=== PATIENT | female | born 1950 | race Caucasian/White ===

== ENCOUNTER 2023-08-11 14:47 | Outpatient (RCR) | payer MEDICARE, OTHER, SELFPAY | END 2023-08-12 07:39 | disposition home or self-care (01) | LOC: RPT 14:47 | PROVIDERS: ATTENDING PHYSICIAN Nurse Practitioner Adult Health; PRIMARYCARE PHYSICIAN Family Medicine | DX: R26.89 Other abnormalities of gait and mobility (principal); Z73.6 Limitation of activities due to disability | CPT/HCPCS: 97110; 97112 ==

== ENCOUNTER 2023-10-18 12:52 | Outpatient (RCR) | payer MEDICARE, OTHER, SELFPAY ==
[2023-10-18] MEDS: PROLIA 60 MG SC (13:26)
[2023-10-18 14:02] VITALS: BP 142/82
== END 2023-10-19 09:37 | disposition home or self-care (01) ==
LOC: OID 12:52
PROVIDERS: ATTENDING PHYSICIAN Family Medicine; FAMILY PHYSICIAN Family Medicine
DX: M81.0 Age-related osteoporosis without current pathological fracture (principal); M47.816 Spondylosis without myelopathy or radiculopathy, lumbar region; M41.86 Other forms of scoliosis, lumbar region
CPT/HCPCS: 96372; J0897

== ENCOUNTER → 2023-12-06 16:21 | Outpatient (REF) | payer MEDICARE, OTHER, SELFPAY | LOC: RAD 16:21 | PROVIDERS: ATTENDING PHYSICIAN Family Medicine | DX: S79.912A Unspecified injury of left hip, initial encounter (principal) | CPT/HCPCS: 73502 ==

== ENCOUNTER → 2023-12-15 13:00 | Outpatient (REF) | payer MEDICARE, OTHER, SELFPAY | LOC: PAVMRI 13:00 | PROVIDERS: ATTENDING PHYSICIAN Orthopaedic Surgery; FAMILY PHYSICIAN Family Medicine | DX: M54.16 Radiculopathy, lumbar region (principal) | CPT/HCPCS: 72148 ==

== ENCOUNTER → 2023-12-21 14:13 | Outpatient (REF) | payer MEDICARE, OTHER, SELFPAY | LOC: RCS 14:13 | PROVIDERS: ATTENDING PHYSICIAN Physical Medicine & Rehabilitation; FAMILY PHYSICIAN Family Medicine | DX: Z01.818 Encounter for other preprocedural examination (principal) | CPT/HCPCS: 93005 ==

== ENCOUNTER 2023-12-28 16:17 | Outpatient (RCR) | payer MEDICARE, OTHER, SELFPAY | END 2024-01-06 13:51 | disposition home or self-care (01) | LOC: RPT 16:17 | PROVIDERS: ATTENDING PHYSICIAN Orthopaedic Surgery; FAMILY PHYSICIAN Family Medicine | DX: M54.16 Radiculopathy, lumbar region (principal); M25.571 Pain in right ankle and joints of right foot; R26.2 Difficulty in walking, not elsewhere classified; Z73.6 Limitation of activities due to disability | CPT/HCPCS: 97010; 97110; 97140; 97163; 97530 ==

== ENCOUNTER 2023-12-29 20:46 | Observation (INO) | payer MEDICARE, OTHER, SELFPAY ==
[2023-12-29] VITALS (9 sets, daily range): BP systolic 124–164; BP diastolic 59–103; BMI 27.1
[2023-12-29] MEDS: MORPHINE SULFATE 1 MG IV ×2 (15:00→19:39)
--- NOTE | 2023-12-29 15:00 | ED.GENMED ---
History of Present Illness
<Rach Baldwin PA-C - Last Filed: 12/29/23 19:56>
General
Chief Complaint: Generalized Pain
Source: patient
Exam Limitations: none
Time Seen by Provider: 12/29/23 14:22
Nursing documentation reviewed up to this point in time: agreed with
Travel History
Have you had any contact with someone who has COVID-19?: No
Do you have any symptoms of coronavirus? Fever > 100 degrees, chills, cough, shortness of breath, sore throat, loss of taste or smell, muscle aches, or headache?: No
History of Present Illness
History of Present Illness:
73-year-old female with a past medical history of chronic left hip pain and back pain, dementia, Parkinson's, epilepsy, hypertension, hyperlipidemia presenting emergency department with acute on chronic left back and hip pain in addition to pain in
her groin. 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 Sister reports that patient was scheduled to have a epidural procedure today for her chronic pain, however the past 2 days her pain became so severe so suddenly and
rapidly that they presented to emergency department today. Sister reports that patient can no longer walk due to her get pain. They have tried Tylenol, IcyHot patches, heat pads, ice the past 2 days and nothing has helped relieve her pain.
Patient follows with Dr. Vazquez for her orthopedic care. Patient not take any blood thinner, denies new trauma recently. Patient denies any nausea or vomiting. Patient denies any dysuria. Patient denies blood in her urine.
Past History
<Rach Baldwin PA-C - Last Filed: 12/29/23 19:56>
Past History
ED Past Medical History: CVA (right frontal), HTN, Psychiatric (anxiety/depression) and Other (Epilepsy with status epilepticus, intellectual impairment with progression)
Social History
Tobacco: Non-smoker
Alcohol: None
Drug: None
Living: with family
Family History
Family History: Other (Epilepsy in brother)
Review of Systems
<Rach Baldwin PA-C - Last Filed: 12/29/23 19:56>
Review of Systems
All Other Systems: ROS reviewed and negative except as documented in HPI and ROS
Phy Exam
<Rach Baldwin PA-C - Last Filed: 12/29/23 19:56>
Physical Exam
Physical Exam:
General: Patient is moaning in pain, appears uncomfortable, however she is nontoxic-appearing
Skin: Warm and dry, no rashes or lesions. No areas of ecchymosis in the bilateral lower extremities.
Head: Normocephalic, atraumatic
Eyes: Sclera non-icteric. EOMs intact. PERRLA.
Cardiac: Regular rate and rhythm, no murmurs
Peripheral Vascular: No lower extremity swelling or edema, 2+ dorsalis pedis pulse bilateral
Pulm: Normal respiratory effort
Abdomen: No palpable abdominal masses. Normoactive bowel sounds. Abdominal distention noted. Mild tenderness palpation in the left pelvic region.
Musculoskeletal: No pain with internal/external rotation of left hip, no pain with hip abduction or abduction. No visible bony deformities of the bilateral lower extremities.
Neuro: Resting tremor noted. CN II-XII intact, no focal neurologic deficits.
Psychiatric: Appropriate mood and affect.
Course
<Rach Baldwin PA-C - Last Filed: 12/29/23 19:56>
Orders/Labs/Results
Orders:
Orders
12/29/23 14:49
Morphine Sulfate 1 mg IV NOW STA
12/29/23 14:55
CT Abd/pelvis W Iv Cont Urgent
Comment:
Reason For Exam: left sided pelvic pain, back pain
12/29/23 15:06
Complete Blood Count/With Diff Urgent
Comprehensive Metabolic Panel Urgent
12/29/23 15:21
Urinalysis Reflex To Culture Urgent
Date Specimen was Collected: 12/29/23
Time Specimen was Collected: 15:20
Urine Microscopic Reflex Cult Urgent
Urine Culture Urgent
CARITO Source: U
Specimen Description:
Date Specimen was Collected: 12/29/23
Time Specimen was Collected: 15:20
12/29/23 15:27
CT Lower Ext W/iv Cont Lt Urgent
Comment:
Reason For Exam: left hip pain
12/29/23 18:08
Morphine Sulfate 1 mg IV NOW STA
12/29/23 19:18
Morphine Sulfate 1 mg IV NOW STA
Abnormal Lab Results
12/29/23 12/29/23
15:06 15:21
RBC 4.12 L 10^6/uL
(4.20-5.40)
MCH 31.3 H pg
(27.0-31.0)
Absolute Monos (auto) 0.9 H 10^3/uL
(0.1-0.6)
Monocytes % 11.0 H %
(1.7-9.3)
Chloride 110 H mmol/L
(98-107)
BUN 21 H mg/dl
(7-17)
Creatinine 1.2 H mg/dL
(0.6-1.0)
Glucose 104 H mg/dl
(70-99)
Ur Occult Blood Reflex Trace A
(Negative)
Urine Bacteria (Reflex) Moderate A
(Negative)
Urine Albumin (Reflex) 3+ A
(Neg - Trace)
12/29/23 15:06
12/29/23 15:06
Vital Signs
Initial and Last Documented VS:
Initial Vital Signs
Temp Pulse Resp BP Pulse Ox
98.2 F 94 16 133/82 94
12/29/23 11:14 12/29/23 11:14 12/29/23 11:14 12/29/23 11:14 12/29/23 11:14
Last Documented Vital Signs
Temp Pulse Resp BP Pulse Ox
98.2 F 61 18 158/85 92
12/29/23 11:14 12/29/23 15:55 12/29/23 15:55 12/29/23 19:31 12/29/23 19:31
<Garry Ruby MD - Last Filed: 12/29/23 18:28>
Orders/Labs/Results
Orders:
Orders
12/29/23 14:49
Morphine Sulfate 1 mg IV NOW STA
12/29/23 14:55
CT Abd/pelvis W Iv Cont Urgent
Comment:
Reason For Exam: left sided pelvic pain, back pain
12/29/23 15:06
Complete Blood Count/With Diff Urgent
Comprehensive Metabolic Panel Urgent
12/29/23 15:21
Urinalysis Reflex To Culture Urgent
Date Specimen was Collected: 12/29/23
Time Specimen was Collected: 15:20
Urine Microscopic Reflex Cult Urgent
Urine Culture Urgent
CARITO Source: U
Specimen Description:
Date Specimen was Collected: 12/29/23
Time Specimen was Collected: 15:20
12/29/23 15:27
CT Lower Ext W/iv Cont Lt Urgent
Comment:
Reason For Exam: left hip pain
12/29/23 18:08
Morphine Sulfate 1 mg IV NOW STA
12/29/23 19:18
Morphine Sulfate 1 mg IV NOW STA
Abnormal Lab Results
12/29/23 12/29/23
15:06 15:21
RBC 4.12 L 10^6/uL
(4.20-5.40)
MCH 31.3 H pg
(27.0-31.0)
Absolute Monos (auto) 0.9 H 10^3/uL
(0.1-0.6)
Monocytes % 11.0 H %
(1.7-9.3)
Chloride 110 H mmol/L
(98-107)
BUN 21 H mg/dl
(7-17)
Creatinine 1.2 H mg/dL
(0.6-1.0)
Glucose 104 H mg/dl
(70-99)
Ur Occult Blood Reflex Trace A
(Negative)
Urine Bacteria (Reflex) Moderate A
(Negative)
Urine Albumin (Reflex) 3+ A
(Neg - Trace)
12/29/23 15:06
12/29/23 15:06
Vital Signs
Initial and Last Documented VS:
Initial Vital Signs
Temp Pulse Resp BP Pulse Ox
98.2 F 94 16 133/82 94
12/29/23 11:14 12/29/23 11:14 12/29/23 11:14 12/29/23 11:14 12/29/23 11:14
Last Documented Vital Signs
Temp Pulse Resp BP Pulse Ox
98.2 F 61 18 158/85 92
12/29/23 11:14 12/29/23 15:55 12/29/23 15:55 12/29/23 19:31 12/29/23 19:31
<Rach Baldwin PA-C - Last Filed: 12/29/23 19:56>
MDM/Problems Addressed
Differential Diagnosis Includes:
ddx include degenerative disc disease, compression fracture,diverticulitis,pyelonephritis, nephrolithiasis lumbar radiculopathy,
MDM/Problems Addressed:
flank pain, groin pain, back pain
Chronic conditions affecting care:
Parkinson's, dementia, hypertension, osteoporosis
Acute Exacerbation and/or Progression of Chronic Illness:
osteoporosis, dementia
<Rach Baldwin PA-C - Last Filed: 12/29/23 19:56>
*Pulse Oximetry
Patient hypoxic: no
*Critical Care Note
Total Time (30-74mins, 75-104mins- exclusive of procedures): Not Applicable
Data Reviewed
Review of Other/Old Records Reveals: Records and Radiology Studies (reviewed most previous MRI study of the lumbar spine)
<Rach Baldwin PA-C - Last Filed: 12/29/23 19:56>
Patient Management
Social determinants of health affecting care: Strong social support
Escalation/DeEscalation of care consider admission/obs:
73-year-old female with a past medical history of chronic left hip pain and back pain, dementia, Parkinson's, epilepsy, hypertension, hyperlipidemia presenting emergency department with acute on chronic left back and hip pain in addition to pain in
her groin. While she does have chronic pain, her sudden onset of severe pain with no history of trauma prompted us to order a CT scan of the abdomen pelvis as well as left lower extremity which was negative for any acute intra-abdominal pathology,
no acute fracture or dislocation but does demonstrate chronic degenerative changes. I personally tried to ambulate with patient, she cannot ambulate without pain and significant assistance, patient also has balance issues related to Parkinson's.
Admission indicated. Sister is unable to manage ongoing pain at home, we discussed possible placement to rehab facility. Patient will stay overnight for pain control and further evaluation with okay to have PT eval in the morning.
ED Attending Note
<Rach Baldwin PA-C - Last Filed: 12/29/23 19:56>
-
Portions of this chart may have been created with voice recognition software.� Occasional wrong word or��sound alike� substitutions may have occurred due to the inherent limitations of voice recognition software.
<Garry Ruby MD - Last Filed: 12/29/23 18:28>
ED Attending Note
Patient seen and examined by attending physician: Yes
I performed the substantive portion of visit, reviewed & personally made and approve the management plan that is documented in note by myself or MARTINA.: Yes
ED Attending Note:
73-year-old female with increasing left lower quadrant and left hip and flank pain progressive over days. Increased pain with ambulation. No fever or chills. No change in bowels. No urinary symptoms. Patient had a lumbar MRI done 518 with
degenerative changes and spinal stenosis. No bowel or bladder issues. No lower extremity weakness. Major symptom is pain.
On exam patient is nontoxic in no distress. Mild dementia. Lungs are clear and equal. Heart regular rate and rhythm. Abdomen mildly distended but soft and minimal left lower quadrant tenderness. No rebound or guarding no mass or hernia. Left
leg with no shortening. Negative straight leg raising. No pain with hip rotation. Mild tenderness over the greater trochanter. No spinal tenderness.
Workup in progress including workup for abdominal etiology. Doubt true hip issue.
Discharge Plan
Departure
Patient Disposition: Admit
Date of Disposition: 12/29/23
Time of Disposition: 19:31
Admit to: Med/Surg
Presentation/result/management discussed w/ accepting MD/DO: Hospitalist
Condition: Fair
Discharge Problem:
Ambulatory dysfunction
Prescriptions:
No Action
pantoprazole 40 MG tablet,delayed release (DR/EC)
40 mg PO DAILY
escitalopram oxalate 10 MG tablet
10 mg PO HS
atorvastatin 40 MG tablet
40 mg PO HS
acetaminophen 325 MG tablet
650 mg PO Q4HPRN PRN (Reason: HUNT, mild pain, or temp >100.4F) 0RF
levetiracetam 500 MG/5 ML solution
1,000 mg PO BID Qty: 120 0RF
clopidogrel [Plavix] 75 mg Tablet
75 mg PO HS
amlodipine 5 mg Tablet
5 mg PO DAILY
cholecalciferol (vitamin D3) [Vitamin D3] 125 mcg (5,000 unit) Tablet
125 mcg PO DAILY
propranolol 20 mg Tablet
20 mg PO BID
Vitamin B-12 25 mcg Tablet
25 mcg PO DAILY
Referrals:
Dean Landa MD [Family Provider] -
Interventions
Interventions:
*Risk Screen - Suicide Last Done: 12/29/23 11:14
*General Assessment Last Done: 12/29/23 13:22
*Neglect/Abuse Screening Last Done: 12/29/23 11:14
ED- Fall Risk Assessment Last Done: 12/29/23 11:14
*ED COVID-19 Vaccine History Last Done: 12/29/23 13:22
Discharge Date and Time
Print Language: FINNISH
[2023-12-29 15:23] LABS: % Eosinophils 1.1 % (0-6); % Immature Granulocytes 0.4 % (0-0.5); % Lymphocytes 25.3 % (20.5-51.1); % Neutrophils 61.2 % (42.2-75.2); Absolute Basophils 0.1 10^3/uL (0-0.2); Absolute Eosinophils 0.1 10^3/uL (0-0.7); Absolute Lymphocytes 2.1 10^3/uL (1.2-3.4); Absolute Monocytes 0.9 10^3/uL (0.1-0.6); Absolute Neutrophils 5.1 10^3/uL (1.4-6.5); Hematocrit 37.2 % (37.0-47.0); Hemoglobin 12.9 g/dL (12.0-16.0); Mean Corp Hgb Conc. 34.7 g/dL (33.0-37.0); Mean Corpuscular Hgb 31.3 pg (27.0-31.0); Mean Corpuscular Volume 90.3 fL (81.0-99.0); Mean Platelet Volume 10.1 fL (7.4-10.4); Nucleated Red Blood Cells % 0 %; Platelet Count 271 10^3/uL (130-400); Red Blood Cell Count 4.12 10^6/uL (4.20-5.40); Red Cell Dist. Width 12.8 % (11.5-14.5); White Blood Cell Count 8.3 10^3/uL (4.8-10.8)
[2023-12-29 15:29] LABS: ALT (SGPT) 20 U/L (0-35); AST (SGOT) 24 U/L (14-36); Albumin 3.9 g/dl (3.5-5.0); Alkaline Phosphatase 65 U/L (38-126); Blood Urea Nitrogen 21 mg/dl (7-17); Calcium 9.7 mg/dl (8.4-10.2); Carbon Dioxide 22 mmol/L (22-30); Chloride 110 mmol/L (98-107); Estimated Creatinine Clearance 40 ml/min; Glucose 104 mg/dl (70-99); Potassium 3.9 mmol/L (3.5-5.1); Sodium 141 mmol/L (135-145); Total Bilirubin 0.7 mg/dl (0.2-1.3); Total Protein 6.6 g/dl (6.3-8.2); eGFR 48.09
[2023-12-29 15:40] LABS: Urine Albumin 3+ (Neg - Trace); Urine Bilirubin Negative (Negative); Urine Character Clear (Clear); Urine Color Yellow; Urine Glucose Negative (Negative); Urine Ketone Negative (Negative); Urine Leukocyte Negative (Negative); Urine Nitrite Negative (Negative); Urine Occult Blood Trace (Negative); Urine Specific Gravity 1.015 (<1.030); Urine Urobilinogen Negative (Neg - 1+)
[2023-12-29 16:06] LABS: Urine Bacteria Moderate (Negative); Urine Red Blood Cell 0-2 /HPF (0-2)
--- NOTE | 2023-12-29 19:59 | HPS.HSE ---
Family Physician
-
Family Physician: Dean Landa
Chief Complaint
-
left hip pain
History of Present Illness
73-year-old female past medical history of Parkinson's, dementia, seizure disorder, CVA, spinal stenosis essential hypertension, osteoarthritis, chronic hip/back pain, GERD, osteoporosis, anxiety, presenting for acute on chronic left lower back and
hip pain in addition to radiating to her groin. Pain radiates down to slightly above her left knee. Denies numbness and tingling of the lower extremity. Patient arrives with sister who lives with her and is her new accounts banking representative. Sister states that
patient supposed have epidural injection today for chronic pain however for the past 2 days the pain was so severe that she came to the emergency room today. Patient cannot walk due to the pain. Patient has tried Tylenol, IcyHot patches, heat
pads, ice for the past 2 days without relief in pain.
Patient did have a fall 2 months ago and injuring her left hip with some bruising.
No urine incontinence, fevers or chills, weight loss.
Patient had a lumbar MRI 2 weeks ago and was found to have spinal stenosis. There is discussion about having laminectomy performed by orthopedics in the near future.
Patient follows Dr. Reynoso of orthopedics.
Medical History
Past Medical History
Past Medical History: Reports Other (Parkinson's, dementia, seizure disorder, CVA, spinal stenosis essential hypertension, osteoarthritis, chronic hip/back pain, GERD, osteoporosis, anxiety)
Past Surgical History: Reports None
Social History
Tobacco: Non-smoker
Alcohol: Occasional
Drug: None
Family History
Family History: Not pertinent
Allergies / Home Medications
Allergies reflects when Allergies were last updated in [facility].
Home Medications with original date entered in [facility]
Allergy/Medication List:
Allergies
Allergy/AdvReac Type Severity Reaction Status Date / Time
No Known Allergies Allergy Verified 12/29/23 11:14
Home Medications
pantoprazole 40 mg tablet,delayed release 40 mg PO DAILY Gastrointestinal issue 03/04/21
escitalopram oxalate 10 mg tablet 10 mg PO HS Depression 07/23/21
atorvastatin 40 mg tablet 40 mg PO HS High cholesterol 01/28/22
acetaminophen 325 mg tablet 650 mg (2 x 325 mg) PO Q4HPRN PRN HUNT, mild pain, or temp >100.4F 01/30/22
levetiracetam 500 mg/5 mL (5 mL) oral solution 1,000 mg (10 mL) PO BID #120 mL 01/30/22
clopidogrel 75 mg tablet (Plavix) 75 mg PO HS 03/10/22
amlodipine 5 mg tablet 5 mg PO DAILY 09/28/22
cholecalciferol (vitamin D3) 125 mcg (5,000 unit) tablet (Vitamin D3) 125 mcg PO DAILY 04/13/23
cyanocobalamin (vitamin B-12) 25 mcg tablet 25 mcg PO DAILY 10/18/23
propranolol 20 mg tablet 20 mg PO BID 10/18/23
Review of Systems
-
History Source: Patient
A 12 point ROS was completed and negative except as noted: Yes
Constitutional: Reports No Symptoms
EENT: Reports No Symptoms
Respiratory: Reports No Symptoms
Cardiac: Reports No Symptoms
Abdomen/GI: Reports No Symptoms
: Reports No Symptoms and See HPI
Musculoskeletal: Reports Other
Skin: Reports No Symptoms
Neurological: Reports No Symptoms
Endocrine: Reports No Symptoms
Hematologic/Lymphatic: Reports No Symptoms
Psych: Reports No Symptoms
Physical Exam
Vital Signs
Vital Signs
Temp Pulse Resp BP Pulse Ox
98.2 F 61 18 158/85 92
12/29/23 11:14 12/29/23 15:55 12/29/23 15:55 12/29/23 19:31 12/29/23 19:31
Physical Exam
General: Well Developed, Well Nourished and No Apparent Distress
HEENT: NormoCephalic, Moist mucous membranes and Atraumatic
Respiratory: Clear
Cardiac: S1/S2 and Regular Rhythm; No Murmur or Rub
GI: Soft, Non Tender, Non Distended and Normal Bowel Sounds; No Organomegaly
Rectal: Deferred by Provider
Musculoskeletal: No Clubbing, No Cyanosis, No Edema and Other (tender left lower back, hip )
Skin: No Rash
Neuro: Nonfocal/grossly intact
Laboratory Results
-
12/29/23 15:06
12/29/23 15:06
Laboratory Results
Total Bilirubin 0.7 mg/dl (0.2-1.3) 12/29/23 15:06
AST 24 U/L (14-36) 12/29/23 15:06
ALT 20 U/L (0-35) 12/29/23 15:06
Alkaline Phosphatase 65 U/L (38-126) 12/29/23 15:06
Data Reviewed
-
Lab Data: Labs Reviewed by me
Old Records: Reviewed
Impression/Plan
-
IMPRESSION:
PLAN:
# Acute on chronic left back/hip pain/groin pain secondary to L4-5 spinal stenosis
-CT abdomen pelvis shows no acute abnormality
-Recently had MRI lumbar spine showing L4-L5 spinal stenosis
-Left lower extremity CT shows no acute abnormality or hip fracture
-Tylenol, ibuprofen, Dilaudid for pain, lidocaine patch
-PT/OT
-Outpatient follow-up with orthopedics for steroid epidural injection
-Likely will require rehab
History of dementia
-Continue Lexapro
History of seizure disorder
-Continue Keppra
Parkinson's disease
History of CVA
-Continue Plavix, statin
Essential hypertension
-Continue amlodipine, propranolol
GERD
-Continue Protonix
DNR/DNI
DVT prophylaxis�heparin
Regular diet
--- NOTE | 2023-12-29 21:26 | PTCARENOTE ---
Pt received from ED to [id number]. Pt oriented to room and call shepard.
[2023-12-29] MEDS: LEXAPRO 10 MG PO (22:22)
[2023-12-29] MEDS: PLAVIX 75 MG PO (22:22)
[2023-12-29] MEDS: KEPPRA 1000 MG PO (22:22)
[2023-12-29] MEDS: HEPARIN 5000 UNITS SC (22:22)
[2023-12-29] MEDS: LIPITOR 40 MG PO (22:22)
[2023-12-30 05:37] LABS: % Basophils 0.9 % (0-2); % Eosinophils 1.9 % (0-6); % Immature Granulocytes 0.5 % (0-0.5); % Lymphocytes 19.4 % (20.5-51.1); % Monocytes 8.9 % (1.7-9.3); % Neutrophils 68.4 % (42.2-75.2); Absolute Basophils 0.1 10^3/uL (0-0.2); Absolute Eosinophils 0.1 10^3/uL (0-0.7); Absolute Lymphocytes 1.4 10^3/uL (1.2-3.4); Absolute Monocytes 0.7 10^3/uL (0.1-0.6); Absolute Neutrophils 5.1 10^3/uL (1.4-6.5); Hemoglobin 12.6 g/dL (12.0-16.0); Mean Corp Hgb Conc. 34.1 g/dL (33.0-37.0); Mean Corpuscular Hgb 30.7 pg (27.0-31.0); Mean Corpuscular Volume 90.2 fL (81.0-99.0); Mean Platelet Volume 10.1 fL (7.4-10.4); Nucleated Red Blood Cells % 0 %; Platelet Count 248 10^3/uL (130-400); Red Cell Dist. Width 12.6 % (11.5-14.5); White Blood Cell Count 7.4 10^3/uL (4.8-10.8)
[2023-12-30 05:56] LABS: ALT (SGPT) 17 U/L (0-35); AST (SGOT) 22 U/L (14-36); Albumin 3.6 g/dl (3.5-5.0); Alkaline Phosphatase 58 U/L (38-126); Blood Urea Nitrogen 22 mg/dl (7-17); Calcium 9.5 mg/dl (8.4-10.2); Carbon Dioxide 20 mmol/L (22-30); Chloride 112 mmol/L (98-107); Estimated Creatinine Clearance 40 ml/min; Glucose 111 mg/dl (70-99); Potassium 3.8 mmol/L (3.5-5.1); Sodium 140 mmol/L (135-145); Total Bilirubin 0.5 mg/dl (0.2-1.3); Total Protein 6.1 g/dl (6.3-8.2); eGFR 48.09
[2023-12-30 07:00] VITALS: BP 157/60
[2023-12-30 09:17] VITALS: BP 141/83; PULSE 92; O2SAT 92
--- NOTE | 2023-12-30 09:23 | W.PN.HOSP.TC ---
Today's Communication/Plan
-
Start Tylenol 1 g 3 times daily
Start prednisone 40 mg daily for 5 days
Start oxycodone 4 times daily, hold for sedation
Assessment / Plan
Assessment / Plan
HPI: 73-year-old female past medical history of Parkinson's, dementia, seizure disorder, CVA, spinal stenosis essential hypertension, osteoarthritis, chronic hip/back pain, GERD, osteoporosis, anxiety, presenting for acute on chronic left lower back
and hip pain in addition to radiating to her groin. Pain radiates down to slightly above her left knee. Denies numbness and tingling of the lower extremity. 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 Sister states that
patient supposed have epidural injection today for chronic pain however for the past 2 days the pain was so severe that she came to the emergency room today. Patient cannot walk due to the pain. Patient has tried Tylenol, IcyHot patches, heat
pads, ice for the past 2 days without relief in pain.
# Acute on chronic left back/hip pain/groin pain secondary to L4-5 spinal stenosis
-CT abdomen pelvis shows no acute abnormality
-Recently had MRI lumbar spine showing L4-L5 spinal stenosis
-Left lower extremity CT shows no acute abnormality or hip fracture
Start Tylenol 1 g 3 times daily
Start prednisone 40 mg daily for 5 days
Start oxycodone 4 times daily, hold for sedation
Sister declining rehab, wants patient to go home with home care
History of dementia
-Continue Lexapro
History of seizure disorder
-Continue Keppra
Parkinson's disease
History of CVA
-Continue Plavix, statin
Essential hypertension
-Continue amlodipine, propranolol
GERD
-Continue Protonix
DVT prophylaxis�subcu heparin
DNR
Updated sister on phone 12/29
Total time spent to see the patient on the floor, examine the patient, review data and lab results, discuss treatment plan with patient, nursing staff around 51 minutes.
Physical Exam
General: No acute distress
HEENT: Normocephalic, Atraumatic, EOMI, MMM
Respiratory: Clear to Auscultation bilaterally
Cardiac: Normal S1/S2, Regular Rate and Rhythm
GI: Soft, Nontender, Nondistended, Normal Bowel Sounds
Extremities: No Clubbing, Cyanosis, or Edema
Neuro: Nonfocal/Grossly Intact
Psych: Calm, Cooperative
Derm: No Visible lesions
Anticipated Discharge: Within 24 hours
Subjective/Interval History
-
Date of Service: December 30, 2023
Patient continues to have lower back and leg pain, 10 out of 10 in intensity. No chest pain, no shortness of breath.
Objective Data
-
Labs:
Laboratory Results
12/30/23
05:16
WBC 7.4
Hgb 12.6
Hct 37.0
Plt Count 248
Sodium 140
Potassium 3.8
Chloride 112 H
Carbon Dioxide 20 L
BUN 22 H
Creatinine 1.2 H
Glucose 111 H
Calcium 9.5
Total Bilirubin 0.5
AST 22
ALT 17
Alkaline Phosphatase 58
Vital Signs:
Vital Signs
Temp Pulse Resp BP Pulse Ox
98.0 F 68 18 157/60 96
12/30/23 07:00 12/30/23 07:00 12/30/23 07:00 12/30/23 07:00 12/30/23 07:00
[2023-12-30 09:25] VITALS: BP 141/83; PULSE 92; O2SAT 94
[2023-12-30] MEDS: TYLENOL 1000 MG PO ×2 (11:02→21:36)
[2023-12-30] MEDS: NORVASC 5 MG PO (11:04)
[2023-12-30] MEDS: MIRALAX 17 GRAMS PO (11:04)
[2023-12-30] MEDS: LIDOCAINE 4% PATCH 1 PATCH TOPICAL (11:04)
[2023-12-30] MEDS: HEPARIN SC ×2 (11:14→19:40)
[2023-12-30] MEDS: INDERAL 20 MG PO ×2 (11:14→19:38)
[2023-12-30] MEDS: THERAGRAN 1 TABLET PO (11:14)
[2023-12-30] MEDS: PROTONIX 40 MG PO (11:14)
[2023-12-30] MEDS: KEPPRA 1000 MG PO ×2 (11:15→19:38)
--- NOTE | 2023-12-30 11:34 | CM ---
Addendum entered by Brittany Zapata 12/30/23 14:22:
[facility] can offer a bed...
However, Patient and her sister decided on d/c to home with outpatient f/u for pain management.
Requested VN with [facility]. Referral to liaison.
Addendum entered by Birttany Zapata 12/30/23 14:00:
[facility] OON and no OON benefit. [facility] no beds.
Original Note:
Patient seen bedside with sister (her daughter is POA).
IA completed.
Patient lives with sister in 1 story home with 5 steps to enter.
Per sister patient is having difficulty with steps, ambulates with a RW.
Also has a cane and commode but does not use.
patient does not drive.
Patient has had VN in the past with [facility].
Patient has been in [facility] in the past.
PT/OT recommending skilled rehab.
Patients sister would like [facility], [facility] or [facility] in that order. Referrals placed.
PCP: Dr Landa
Pharmacy: [facility]
Plan: possible skilled rehab.
[2023-12-30] MEDS: ROXICODONE 5 MG PO ×3 (14:05→21:36)
[2023-12-30] MEDS: ROXICODONE PO (14:13)
[2023-12-30 15:00] VITALS: BP 128/78
[2023-12-30] MEDS: DELTASONE 40 MG PO (15:54)
[2023-12-30] MEDS: TYLENOL PO (17:00)
[2023-12-30 19:36] LABS: Hepatitis C Antibody Negative (Negative)
[2023-12-30] MEDS: PLAVIX 75 MG PO (19:40)
[2023-12-30] MEDS: LIPITOR 40 MG PO (19:40)
[2023-12-30] MEDS: LEXAPRO 10 MG PO (19:43)
[2023-12-30 23:00] VITALS: BP 151/94
[2023-12-31 07:00] VITALS: BP 147/80
[2023-12-31] MEDS: DELTASONE 40 MG PO (08:05)
[2023-12-31] MEDS: INDERAL 20 MG PO (08:06)
[2023-12-31] MEDS: LIDOCAINE 4% PATCH 1 PATCH TOPICAL (08:06)
[2023-12-31] MEDS: KEPPRA 1000 MG PO (08:06)
[2023-12-31] MEDS: THERAGRAN 1 TABLET PO (08:07)
[2023-12-31] MEDS: NORVASC 5 MG PO (08:07)
[2023-12-31] MEDS: ROXICODONE 5 MG PO (08:07)
[2023-12-31] MEDS: PROTONIX 40 MG PO (08:07)
[2023-12-31] MEDS: TYLENOL 1000 MG PO (08:07)
[2023-12-31] MEDS: MIRALAX 17 GRAMS PO (08:07)
[2023-12-31] MEDS: HEPARIN 5000 UNITS SC (08:19)
--- NOTE | 2023-12-31 08:37 | W.PN.HOSP.TC ---
Today's Communication/Plan
-
Discharge today
Assessment / Plan
Assessment / Plan
HPI: 73-year-old female past medical history of Parkinson's, dementia, seizure disorder, CVA, spinal stenosis essential hypertension, osteoarthritis, chronic hip/back pain, GERD, osteoporosis, anxiety, presenting for acute on chronic left lower back
and hip pain in addition to radiating to her groin. Pain radiates down to slightly above her left knee. Denies numbness and tingling of the lower extremity. Patient arrives with sister who lives with her and is her product engineer. Sister states that
patient supposed have epidural injection today for chronic pain however for the past 2 days the pain was so severe that she came to the emergency room today. Patient cannot walk due to the pain. Patient has tried Tylenol, IcyHot patches, heat
pads, ice for the past 2 days without relief in pain.
# Acute on chronic left back/hip pain/groin pain secondary to L4-5 spinal stenosis
-CT abdomen pelvis shows no acute abnormality
-Recently had MRI lumbar spine showing L4-L5 spinal stenosis
-Left lower extremity CT shows no acute abnormality or hip fracture
Started Tylenol 1 g 3 times daily, prednisone 40 mg daily for 7 days, oxycodone 4 times prn
While patient still has pain, she was able to tolerate more activity with physical therapy
Sister declining rehab, wants patient to go home with home care
Medically stable for discharge with home PT, sister has epidural spinal injection appointment for patient next Wednesday on 01/04
History of dementia
-Continue Lexapro
History of seizure disorder
-Continue Keppra
Parkinson's disease
History of CVA
-Continue Plavix, statin
Essential hypertension
-Continue amlodipine, propranolol
GERD
-Continue Protonix
DVT prophylaxis�subcu heparin
DNR
Updated sister on phone 12/30
Physical Exam
General: No acute distress
HEENT: Normocephalic, Atraumatic, EOMI, MMM
Respiratory: Clear to Auscultation bilaterally
Cardiac: Normal S1/S2, Regular Rate and Rhythm
GI: Soft, Nontender, Nondistended, Normal Bowel Sounds
Extremities: No Clubbing, Cyanosis, or Edema
Neuro: Pleasantly confused
Psych: Calm, Cooperative
Derm: No Visible lesions
Anticipated Discharge: Today
Subjective/Interval History
-
Date of Service: December 31, 2023
Patient reports her pain is unchanged. However she was able to tolerate more activity with physical therapy. No fever, no vomiting.
Objective Data
-
Vital Signs:
Vital Signs
Temp Pulse Resp BP Pulse Ox
97.7 F 79 16 147/80 95
12/31/23 07:00 12/31/23 07:00 12/31/23 07:00 12/31/23 07:00 12/31/23 07:00
I&O
12/30/23 12/31/23 01/01/24
06:59 06:59 06:59
Intake Total 360 / 360
Balance 360 / 360
--- NOTE | 2023-12-31 11:50 | CM ---
Patient seen bedside.
Plan: home with [facility] sister will transport.
[2023-12-31 12:20] VITALS: BP 136/73
--- NOTE | 2023-12-31 12:43 | VNURNOTE ---
Home Health Liaison met with patient and sister Allison at 1130 to discuss [facility] nurse/therapy, visits, schedule and homebound status. Allison is agreeable and understands that visits at home will be 2-3 x per week to assess and teach medical management.
Allison is aware that VN will contact her for start of care in 1-2 days after discharge from .
[facility] referral completed in [facility].
--- NOTE | 2023-12-31 16:38 | W.DCSUMMARY ---
Discharge Summary
Discharge Data
Date of Admission: 12/29/23
Date of Discharge: 12/31/23
-
Pending Results: No
Hospital Course
Discharge diagnosis:
Lumbar spine vertebrae 4�5 spinal stenosis
Acute on chronic left back/hip/groin pain
Ambulatory dysfunction
History of dementia
History of seizure disorder
Parkinson's disease
History of stroke
Essential hypertension
Gastroesophageal reflux disease
Hospital course:
73-year-old female with a past medical history of Parkinson's, dementia, seizure disorder, CVA, spinal stenosis, essential hypertension, osteoarthritis, chronic hip/back pain, GERD, osteoporosis, and anxiety who was placed in observation for
worsening acute on chronic left back/hip/groin pain from L4-L5 spinal stenosis. Patient has an appointment for epidural spinal injection next week.
Patient was treated with Tylenol 1 g 3 times daily, prednisone 40 mg daily, and oxycodone 5 mg 4 times daily as needed. While she still had pain, this regimen enabled her to participate with physical therapy more. Physical therapy initially
recommended short-term rehab. Patient's sister declined, wishing to take her home. Patient was seen by physical therapy again, prior to discharge. With the current medications, physical therapy notes the patient tolerated the physical therapy
session better today versus the previous session.
Patient is medically stable for discharge. Her sister has an epidural spinal injection appointment for her on 01/05/2024. She can continue the Tylenol 1 g 3 times a day, oxycodone 5 mg as needed, and prednisone 40 mg daily to complete a
7-day course.
Disposition: Home with home PT
Discharge planning: Required 37 minutes
Discharge Plan
-
Patient Disposition: Home with Home Care
Discharge Diagnosis/Procedures: Lower back pain, spinal stenosis, dementia
Diet: Regular
Activity: As tolerated
Activity Restrictions/Additional Instructions:
Please follow-up with your primary care doctor in 1 week, and keep the appointment for your epidural spinal injection.
Referrals:
Syeda,Dean L., MD [Family Provider] - in one week
Prescriptions:
New
lidocaine 4 % Adhesive Patch,Medicated
1 patch topical DAILY Qty: 30 0RF
prednisone 20 mg Tablet
40 mg PO DAILY 5 Days Qty: 10 0RF
acetaminophen [Tylenol Extra Strength] 500 mg Tablet
1,000 mg PO TID Qty: 120 0RF
oxycodone 5 mg Tablet
5 mg PO QID PRN (Reason: Pain) Qty: 30 0RF
polyethylene glycol 3350 17 gram/dose powder
17 g PO DAILY Qty: 510 0RF
Continued
pantoprazole 40 MG tablet,delayed release (DR/EC)
40 mg PO DAILY
escitalopram oxalate 10 MG tablet
10 mg PO HS
atorvastatin 40 MG tablet
40 mg PO HS
clopidogrel [Plavix] 75 mg Tablet
75 mg PO HS
amlodipine 5 mg Tablet
5 mg PO DAILY
propranolol 20 mg Tablet
20 mg PO BID
therapeutic multivitamin Tablet
1 tab PO DAILY
levetiracetam 100 mg/mL solution
1,000 mg PO Q12H
cholecalciferol (vitamin D3)
1 tab PO DAILY
cyanocobalamin (vitamin B-12)
1 tab PO DAILY
Discontinued
ibuprofen-acetaminophen [Dual Action Pain Reliever] 125-250 mg Tablet
2 tab PO BIDPRN PRN (Reason: mild pain)
Discharge Orders:
Discharge Patient (As Directed); Ordered 12/31/23
Ordered By: Marquise Jung
Discharge Date and Time
Discharge Date/Time: 12/31/23 13:35
Print Language: TANZANIAN
== END 2023-12-31 13:35 | disposition home health service (06) ==
LOC: 4 WEST ACU 20:46
PROVIDERS: Physician Assistant; ADMITTING PHYSICIAN Hospitalist; ATTENDING PHYSICIAN Family Medicine; EMERGENCY PHYSICIAN Emergency Medicine; FAMILY PHYSICIAN Family Medicine
DX: M54.50 Low back pain, unspecified (principal); G89.29 Other chronic pain; M54.9 Dorsalgia, unspecified; M48.061 Spinal stenosis, lumbar region without neurogenic claudication; M47.816 Spondylosis without myelopathy or radiculopathy, lumbar region; I10 Essential (primary) hypertension; E78.5 Hyperlipidemia, unspecified; M41.56 Other secondary scoliosis, lumbar region; M41.54 Other secondary scoliosis, thoracic region; M25.552 Pain in left hip; F02.A4 Dementia in other diseases classified elsewhere, mild, with anxiety; G40.909 Epilepsy, unspecified, not intractable, without status epilepticus; F02.A3 Dementia in other diseases classified elsewhere, mild, with mood disturbance; R10.2 Pelvic and perineal pain; G20.A1 Parkinson's disease without dyskinesia, without mention of fluctuations; N28.1 Cyst of kidney, acquired; M81.0 Age-related osteoporosis without current pathological fracture; R26.2 Difficulty in walking, not elsewhere classified; K21.9 Gastro-esophageal reflux disease without esophagitis; F32.A Depression, unspecified; K57.30 Diverticulosis of large intestine without perforation or abscess without bleeding; Z66 Do not resuscitate; Z79.02 Long term (current) use of antithrombotics/antiplatelets; Z86.73 Personal history of transient ischemic attack (TIA), and cerebral infarction without residual deficits
CPT/HCPCS: 73701; 74177; 80053; 81003; 81015; 85025; 86803; 87086; 96374; 96376; 97163; 97166; 97530; 99285; G0378; Q9967

== ENCOUNTER → 2024-01-06 14:26 | Outpatient (REF) | payer MEDICARE, OTHER, SELFPAY | LOC: RAD 14:26 | PROVIDERS: ATTENDING PHYSICIAN Family Medicine | DX: S09.93XA Unspecified injury of face, initial encounter (principal); W19.XXXA Unspecified fall, initial encounter | CPT/HCPCS: 70150 ==

== ENCOUNTER → 2024-03-03 16:44 | Outpatient (REF) | payer MEDICARE, OTHER, SELFPAY | LOC: PAVMRI 16:44 | PROVIDERS: ATTENDING PHYSICIAN Orthopaedic Surgery; FAMILY PHYSICIAN Family Medicine | DX: M79.18 Myalgia, other site (principal) | CPT/HCPCS: 72195 ==

== ENCOUNTER 2024-05-01 12:49 | Outpatient (RCR) | payer MEDICARE, OTHER, SELFPAY ==
[2024-05-01 13:11] VITALS: BP 133/65
[2024-05-01] MEDS: PROLIA 60 MG SC (13:35)
== END 2024-05-08 23:59 | disposition home or self-care (01) ==
LOC: OID 12:49
PROVIDERS: ATTENDING PHYSICIAN Family Medicine; FAMILY PHYSICIAN Family Medicine
DX: M81.0 Age-related osteoporosis without current pathological fracture (principal); M47.816 Spondylosis without myelopathy or radiculopathy, lumbar region; M41.86 Other forms of scoliosis, lumbar region
CPT/HCPCS: 96372; J0897

== ENCOUNTER 2024-05-05 11:06 | Outpatient (RCR) | payer MEDICARE, OTHER, SELFPAY | END 2024-05-05 23:59 | disposition home or self-care (01) | LOC: RPT 11:06 | PROVIDERS: ATTENDING PHYSICIAN Physical Medicine & Rehabilitation; FAMILY PHYSICIAN Family Medicine | DX: M54.16 Radiculopathy, lumbar region (principal); M51.36 Other intervertebral disc degeneration, lumbar region; Z73.6 Limitation of activities due to disability; R26.2 Difficulty in walking, not elsewhere classified; M62.81 Muscle weakness (generalized); R26.89 Other abnormalities of gait and mobility; R29.6 Repeated falls | CPT/HCPCS: 97110; 97116; 97163; 97530 ==

== ENCOUNTER → 2024-05-05 16:11 | Outpatient (REF) | payer MEDICARE, OTHER, SELFPAY | LOC: RAD 16:11 | PROVIDERS: ATTENDING PHYSICIAN Family Medicine | DX: R60.0 Localized edema (principal) | CPT/HCPCS: 93971 ==

== ENCOUNTER 2024-06-06 14:00 | Outpatient (RCR) | payer MEDICARE, OTHER, SELFPAY | END 2024-06-06 23:59 | disposition home or self-care (01) | LOC: RPT 14:00 | PROVIDERS: ATTENDING PHYSICIAN Physical Medicine & Rehabilitation; FAMILY PHYSICIAN Family Medicine | DX: M51.16 Intervertebral disc disorders with radiculopathy, lumbar region (principal) | CPT/HCPCS: 97110; 97112; 97116; 97530 ==

== ENCOUNTER → 2024-06-14 14:24 | Outpatient (REF) | payer MEDICARE, OTHER, SELFPAY | LOC: PAVMRI 14:24 | PROVIDERS: ATTENDING PHYSICIAN Nurse Practitioner Adult Health; FAMILY PHYSICIAN Family Medicine | DX: R25.1 Tremor, unspecified (principal); G40.901 Epilepsy, unspecified, not intractable, with status epilepticus; I63.9 Cerebral infarction, unspecified; R26.89 Other abnormalities of gait and mobility; R93.0 Abnormal findings on diagnostic imaging of skull and head, not elsewhere classified | CPT/HCPCS: 70551 ==

== ENCOUNTER 2024-06-20 14:16 | Outpatient (RCR) | payer MEDICARE, OTHER, SELFPAY | END 2024-07-03 14:21 | disposition home or self-care (01) | LOC: RPT 14:16 | PROVIDERS: ATTENDING PHYSICIAN Physical Medicine & Rehabilitation; FAMILY PHYSICIAN Family Medicine | DX: M54.16 Radiculopathy, lumbar region (principal); Z73.6 Limitation of activities due to disability; M51.360 Other intervertebral disc degeneration, lumbar region with discogenic back pain only; R26.2 Difficulty in walking, not elsewhere classified; M62.81 Muscle weakness (generalized) | CPT/HCPCS: 97010; 97110; 97112; 97116; 97530; 97535 ==

== ENCOUNTER → 2024-06-22 11:15 | Outpatient (REF) | payer MEDICARE, OTHER, SELFPAY ==
--- NOTE | 2024-06-22 14:46 | EEG.RPT ---
Electroencephalogram Report
Recording
Date of EE06/22/24
Type of EEG: Routine
Length of EEG recordin minutes
Done with Video Recording: Yes
Patient Status: Outpatient
Recording Conditions: Awake and Drowsy
Hyperventilation Performed: No
Photic Stimulation Performed: Yes
Report
GREATER THAN 1 HOUR EEG REPORT
GREATER THAN 1 HOUR EEG INTERPRETATION:
Mildly abnormal EEG for age due to diffuse bihemispheric slowing
CLINICAL CORRELATION:
This study was suggestive of mild diffuse cortical dysfunction without focal abnormality. No seizures were recorded.
Clinical correlation is advised.
METHODS:
A 21 channel digitized electroencephalogram (EEG) was performed at the bedside. The 10/20 international system of electrode placement was used with ECG and lateral/vertical eye movements recorded. Persyst QEEG monitoring was performed.
QUALITY OF STUDY:
Fair�poor
ELECTROENCEPHALOGRAPHER IMPRESSION(S):
Background
There was a low�medium amplitude fairly well organized anterior-posterior voltage gradient of theta, rarely alpha frequency
There were no significant asymmetries of background activity noted.
Sleep
Drowsiness present
Photic Stimulation
Failed to activate the record.
ECG
Normal sinus rhythm
== END ==
LOC: EEG 11:15
PROVIDERS: ATTENDING PHYSICIAN Nurse Practitioner Adult Health; FAMILY PHYSICIAN Family Medicine
DX: R56.9 Unspecified convulsions (principal)
CPT/HCPCS: 95813

== ENCOUNTER → 2024-06-23 16:05 | Outpatient (REF) | payer MEDICARE, OTHER, SELFPAY | LOC: RAD 16:05 | PROVIDERS: ATTENDING PHYSICIAN Family Medicine | DX: S49.91XA Unspecified injury of right shoulder and upper arm, initial encounter (principal) | CPT/HCPCS: 73030; 73060 ==

== ENCOUNTER 2024-07-01 18:02 | Inpatient (IN) | payer MEDICARE, OTHER, SELFPAY ==
[2024-07-01 14:33] VITALS: BP 157/95
[2024-07-01 14:50] LABS: % Basophils 0.8 % (0-2); % Eosinophils 1.8 % (0-6); % Immature Granulocytes 0.8 % (0-0.5); % Lymphocytes 18.2 % (20.5-51.1); % Monocytes 8.2 % (1.7-9.3); % Neutrophils 70.2 % (42.2-75.2); Absolute Basophils 0.1 10^3/uL (0-0.2); Absolute Eosinophils 0.2 10^3/uL (0-0.7); Absolute Immature Granulocytes 0.1 10^3/uL (0-0.05); Absolute Lymphocytes 1.6 10^3/uL (1.2-3.4); Absolute Monocytes 0.7 10^3/uL (0.1-0.6); Absolute Neutrophils 6.1 10^3/uL (1.4-6.5); Hematocrit 34.8 % (37.0-47.0); Hemoglobin 11.8 g/dL (12.0-16.0); Mean Corp Hgb Conc. 33.9 g/dL (33.0-37.0); Mean Corpuscular Hgb 30.5 pg (27.0-31.0); Mean Corpuscular Volume 89.9 fL (81.0-99.0); Mean Platelet Volume 10.1 fL (7.4-10.4); Nucleated Red Blood Cells % 0 %; Platelet Count 279 10^3/uL (130-400); Red Blood Cell Count 3.87 10^6/uL (4.20-5.40); Red Cell Dist. Width 12.3 % (11.5-14.5); White Blood Cell Count 8.7 10^3/uL (4.8-10.8)
[2024-07-01 15:03] LABS: ALT (SGPT) 18 U/L (0-35); AST (SGOT) 23 U/L (14-36); Albumin 3.8 g/dl (3.5-5.0); Alkaline Phosphatase 54 U/L (38-126); Blood Urea Nitrogen 28 mg/dl (7-17); Carbon Dioxide 25 mmol/L (22-30); Chloride 106 mmol/L (98-107); Glucose 109 mg/dl (70-99); Potassium 3.8 mmol/L (3.5-5.1); Sodium 145 mmol/L (135-145); Total Bilirubin 0.6 mg/dl (0.2-1.3); Total Protein 6.4 g/dl (6.3-8.2); eGFR 31.66
[2024-07-01 15:05] LABS: COVID-19 Antigen Negative (Negative)
--- NOTE | 2024-07-01 15:25 | ED.GENMED ---
History of Present Illness
General
Chief Complaint: Change in Mental Status
Time Seen by Provider: 07/01/24 14:41
History of Present Illness
History of Present Illness:
73-year-old female with history of seizures, hypertension, cognitive impairment, dementia, Parkinson's disease presenting to the emergency department for worsening mental status. Patient lives at home, is cared by family. Patient had been being
cared for by her sister, however sister had to be hospitalized for other medical reasons. Patient's nieces have since been trying to take care of her at home, however have been struggling given patient's need for 24-hour assistance. They have
noticed in the past 3 days she has had acute worsening of her mental status. She has been less directable, and has seemed more confused. She also developed an upper respiratory infection and cough on Wednesday, was tested for COVID and tested
positive. She fell a few weeks ago, was evaluated in the hospital at that time. No additional falls since then. No report of any fever. Patient unable to answer any additional questions given her severe dementia.
Past History
Past History
ED Past Medical History: CVA (right frontal), HTN, Psychiatric (anxiety/depression) and Other (Epilepsy with status epilepticus, intellectual impairment with progression)
Social History
Tobacco: Non-smoker
Alcohol: None
Drug: None
Living: with family
Family History
Family History: Other (Epilepsy in brother)
Phy Exam
Physical Exam
Physical Exam:
General: Well-appearing, no clinical signs of dehydration, nontoxic and in no acute distress
HEENT: protecting airway
Neck: appears supple
CV: Normal heart rate, regular rhythm
Resp: No accessory muscle use, no increased work of breathing, lungs clear to auscultation bilaterally
Abd: Soft and non-distended, no tenderness to palpation
Extremities: No deformities, no swelling, no erythema, pulses and sensation intact
Neuro: alert, not oriented, moving all extremities equally
: deferred
Rectal: deferred
Psych: Normal affect
Skin: Intact
Course
Orders/Labs/Results
Orders:
Orders
07/01/24 14:43
Complete Blood Count/With Diff Urgent
Comprehensive Metabolic Panel Urgent
07/01/24 14:44
COVID-19 Antigen Urgent
Source: Nasal Swab
07/01/24 14:53
CR Chest - 2 Views Urgent
Comment:
Reason For Exam: positive COVID
07/01/24 14:54
CT Head W/o Iv Contrast Urgent
Comment:
Reason For Exam: change in mental status
07/01/24 16:16
Urinalysis Reflex To Culture Urgent
Date Specimen was Collected: 07/01/24
Time Specimen was Collected: 16:15
Urine Microscopic Reflex Cult Urgent
Urine Culture Urgent
CARITO Source: U
Specimen Description:
Date Specimen was Collected: 07/01/24
Time Specimen was Collected: 16:15
Abnormal Lab Results
07/01/24 07/01/24
14:43 16:16
RBC 3.87 L 10^6/uL
(4.20-5.40)
Hgb 11.8 L g/dL
(12.0-16.0)
Hct 34.8 L %
(37.0-47.0)
Abs Immat Gran (auto) 0.1 H 10^3/uL
(0-0.05)
Absolute Monos (auto) 0.7 H 10^3/uL
(0.1-0.6)
Immature Gran % 0.8 H %
(0-0.5)
Lymphocytes % 18.2 L %
(20.5-51.1)
BUN 28 H mg/dl
(7-17)
Creatinine 1.7 H mg/dL
(0.6-1.0)
Glucose 109 H mg/dl
(70-99)
Ur Occult Blood Reflex Trace A
(Negative)
Urine Nitrite (Reflex) Positive A
(Negative)
Leukocyte Esterase Rfl 1+ A
(Negative)
Urine Albumin (Reflex) 2+ A
(Neg - Trace)
07/01/24 14:43
07/01/24 14:43
Vital Signs
Initial and Last Documented VS:
Initial Vital Signs
Temp Pulse Resp BP Pulse Ox
97.9 F 89 16 157/95 96
07/01/24 14:33 07/01/24 14:33 07/01/24 14:33 07/01/24 14:33 07/01/24 14:33
Last Documented Vital Signs
Temp Pulse Resp BP Pulse Ox
97.9 F 89 16 157/95 96
07/01/24 14:33 07/01/24 14:33 07/01/24 14:33 07/01/24 14:33 07/01/24 14:33
MDM/Problems Addressed
MDM/Problems Addressed:
73-year-old female with history of seizures, hypertension, cognitive impairment, dementia, Parkinson's disease presenting to the emergency department for change in mental status. Vital signs on arrival are significant for mild hypertension.
On exam, patient is resting comfortably, no acute distress. She is alert, however not oriented. Ace at bedside notes that she has difficulty following commands at baseline due to severe dementia. She is nontoxic, no increased respiratory
effort. Suspect decompensated dementia versus underlying infectious pathology. Known recent positive test for COVID, which could be contributing to symptoms. Will screen additionally with laboratory analysis and urinalysis. Will obtain chest
x-ray imaging. In discussion with ace, notes that she cannot appropriately care for patient at home, will likely require admission for placement
16:50 -patient's COVID is now negative. Chest x-ray without acute cardiopulmonary disease. Labs do show mild LUISA and obvious urinary tract infection, likely contributing to acute change in mental status. CT brain without acute intracranial
abnormality. Plan for admission for change in mental status and complicated urinary tract infection. Will start patient on antibiotics. Plan for admission with social service consultation
*EKG
Interpreted by ED Provider?: Yes
EKG Intrepretation Date: 07/01/24
EKG Intrepretation Time: 15:27
Interpretation: normal
Comparison EKG: no changes (01/28/22)
Heart Rate: 73
Rate: normal
Rhythm: sinus
[place]: left axis deviation
Interval: normal interval
QRS Pattern: normal QRS
Ischemia: no ischemia
*Critical Care Note
Total Time (30-74mins, 75-104mins- exclusive of procedures): Not Applicable
ED Attending Note
-
Portions of this chart may have been created with voice recognition software.� Occasional wrong word or��sound alike� substitutions may have occurred due to the inherent limitations of voice recognition software.
Discharge Plan
Departure
Prescriptions:
No Action
pantoprazole 40 MG tablet,delayed release (DR/EC)
40 mg PO DAILY
escitalopram oxalate 10 MG tablet
10 mg PO HS
atorvastatin 40 MG tablet
40 mg PO HS
clopidogrel [Plavix] 75 mg Tablet
75 mg PO HS
amlodipine 5 mg Tablet
5 mg PO DAILY
propranolol 20 mg Tablet
20 mg PO BID
lidocaine 4 % adhesive patch,medicated
1 patch topical DAILY PRN (Reason: pain)
acetaminophen [Tylenol Extra Strength] 500 mg tablet
1,000 mg PO TID PRN (Reason: pain)
therapeutic multivitamin Tablet
1 tab PO DAILY
levetiracetam 100 mg/mL solution
1,000 mg PO Q12H
cholecalciferol (vitamin D3)
1 tab PO DAILY
cyanocobalamin (vitamin B-12)
1 tab PO DAILY
oxycodone 5 mg Tablet
5 mg PO QID PRN (Reason: Pain) Qty: 30 0RF
Referrals:
Dean Landa MD [Family Provider] -
Interventions
Interventions:
*Risk Screen - Suicide Last Done: 07/01/24 14:36
*General Assessment Last Done: 07/01/24 14:35
*Neglect/Abuse Screening Last Done: 07/01/24 14:36
*ED COVID-19 Vaccine History Last Done: 07/01/24 14:35
ED- Neurological Assessment Last Done: 07/01/24 14:37
Discharge Date and Time
Print Language: SPANISH
[2024-07-01 16:28] LABS: Urine Albumin 2+ (Neg - Trace); Urine Bilirubin Negative (Negative); Urine Character Clear (Clear); Urine Color Straw; Urine Glucose Negative (Negative); Urine Ketone Negative (Negative); Urine Leukocyte 1+ (Negative); Urine Nitrite Positive (Negative); Urine Occult Blood Trace (Negative); Urine Urobilinogen Negative (Neg - 1+)
[2024-07-01 16:50] LABS: Urine Bacteria Few (Negative); Urine Red Blood Cell 0-2 /HPF (0-2); Urine Squamous Cell 0-2 /LPF (Few)
--- NOTE | 2024-07-01 17:06 | HPS.HSE ---
Family Physician
-
Family Physician: Dean Landa
Chief Complaint
-
Altered mental status
History of Present Illness
Patient is 73 years old female with multiple comorbidities some of which are including hypertension, hyperlipidemia, seizure disorder, dementia, chronic back pain, depression, came into the hospital mental status changes. Most of information
gathered from ER staff, electronic records, and family at bedside since patient unable to provide accurate information. Family has noticed worsening mental status over the last several days since she has been more confused and not able to follow
directions as before. She is walking backwards with her walker. She is more irritable. She has been having some urinary incontinence. She does not remember to sit on the toilet, she cannot hold her food. She has some decline over the last 6
months but worse over the last few days. Of note, patient has been usually cared by her sister but she has been hospitalized and lately she has been cared by her nieces. There has been some discussion about patient requiring some help. She also
had recent URI over the last weekend and she was tested positive for COVID-19 on Wednesday. She was treated with Paxlovid as outpatient and getting her last dose today. Her antiplatelet and her statins have been on hold. In the ER, labs noticeably
for WBC normal at 8.7 but lymphocytosis 18.2%, and BUN 28 and creatinine 1.7, abnormal urinalysis, normal chest x-ray and head CT. She was referred to hospitalist for further evaluation.
Medical History
Past Medical History
Past Medical History: Reports Other (Parkinson's, dementia, seizure disorder, CVA, spinal stenosis essential hypertension, osteoarthritis, chronic hip/back pain, GERD, osteoporosis, anxiety)
Past Surgical History: Reports None
Social History
Tobacco: Non-smoker
Alcohol: Occasional
Drug: None
Family History
Family History: Not pertinent
Allergies / Home Medications
Allergies reflects when Allergies were last updated in [employer].
Home Medications with original date entered in [employer]
Allergy/Medication List:
Allergies
Allergy/AdvReac Type Severity Reaction Status Date / Time
No Known Allergies Allergy Verified 05/01/24 13:25
Home Medications
pantoprazole 40 mg tablet,delayed release 40 mg PO DAILY Gastrointestinal issue 03/04/21
escitalopram oxalate 10 mg tablet 10 mg PO HS Depression 07/23/21
atorvastatin 40 mg tablet 40 mg PO HS High cholesterol 01/28/22
clopidogrel 75 mg tablet (Plavix) 75 mg PO HS Blood Clot Prevention/Tx 03/10/22
amlodipine 5 mg tablet 5 mg PO DAILY Blood Pressure 09/28/22
propranolol 20 mg tablet 20 mg PO BID Gastrointestinal Issue 10/18/23
cholecalciferol (vitamin D3) 1 tab PO DAILY 12/29/23
cyanocobalamin (vitamin B-12) 1 tab PO DAILY 12/29/23
levetiracetam 100 mg/mL oral solution 1,000 mg PO Q12H Seizures 12/29/23
therapeutic multivitamin 1 tab PO DAILY Supplement 12/29/23
oxycodone 5 mg tablet 5 mg PO QID PRN Pain #30 tabs 12/31/23
acetaminophen 500 mg tablet (Tylenol Extra Strength) 1,000 mg PO TID PRN pain 05/01/24
lidocaine 4 % topical patch 1 patch topical DAILY PRN pain 05/01/24
Review of Systems
-
Unable to obtain full review of systems at this time due to: Dementia
Physical Exam
Vital Signs
Vital Signs
Temp Pulse Resp BP Pulse Ox
97.9 F 89 16 157/95 96
07/01/24 14:33 07/01/24 14:33 07/01/24 14:33 07/01/24 14:33 07/01/24 14:33
Physical exam:
General: Acutely ill
HEENT: Normocephalic, Atraumatic and Moist Mucous Membranes
Respiratory: Clear to Auscultation; Negative Wheezes, Rales or Rhonchi
Cardiac: Regular Rhythm and S1/S2
GI: Soft, mild tender and Nondistended
Musculoskeletal: No Clubbing, No Cyanosis and No Edema
Neuro: Awake, Alert and Disoriented
Psych: Calm
Physical Exam
General: Other
Laboratory Results
-
07/01/24 14:43
07/01/24 14:43
Laboratory Results
Total Bilirubin 0.6 mg/dl (0.2-1.3) 07/01/24 14:43
AST 23 U/L (14-36) 07/01/24 14:43
ALT 18 U/L (0-35) 07/01/24 14:43
Alkaline Phosphatase 54 U/L (38-126) 07/01/24 14:43
Data Reviewed
-
CT Scan: Image Personally Visualized and interpreted
Lab Data: Labs Reviewed by me
Impression/Plan
-
IMPRESSION:
Patient 73 years old female with multiple comorbidities came into the hospital with altered mental status. Etiology appears to be multifactorial but mainly driven by UTI and dehydration. Patient increased risk morbidity mortality therefore she
will need to be treated in the hospital and monitor accordingly.
PLAN:
Acute toxic metabolic encephalopathy:
Multifactorial but likely UTI and dehydration and COVID-[address] of the head unremarkable
PT OT eval
manager convention involvement
Suspicion for UTI:
Start IV ceftriaxone 1 g daily (ordered cefepime in the ER)-not known MDR
Urinalysis with positive nitrite, pyuria 15 WBC, and few urine bacteria.
Follow-up urine culture
LUISA on CKD:
Creatinine 1.7 today
Last creatinine in December 2023 was 1.2
IV fluid of normal saline
Avoid nephrotoxic
Monitor renal function in a.m.
COVID-19:
Patient is not hypoxic
She was tested positive as outpatient although tested negative today while she has been on treatment.
Finish the last dose of Paxlovid today
Isolation precautions should remain as per policy and CDC guidelines
Symptomatic care and monitor
Parkinson's disease:
Per family she is not on medications in order to avoid side effects and her underlying comorbidities
Hypertension:
Continue home antihypertensives
Hyperlipidemia:
Continue home statins when able to resume
History of CVA:
Continue antiplatelets and statins when able to resume
Seizures disorder:
Continue antiseizure medications
Seizure precautions
Dementia:
Continue to monitor mental status and behavioral status
Chronic back pain with spinal stenosis:
Pain control with Tylenol as needed for now
Depression:
Continue home antidepressant
DVT prophylaxis:
Heparin SQ
CODE STATUS:
DNR
Time spent 75 minutes
[2024-07-01] MEDS: ROCEPHIN 1000 MG IV (18:23)
[2024-07-01] MEDS: STERILE WATER FOR INJECTION 10 ML IV (18:23)
[2024-07-01] MEDS: NSS 1000 IV (18:31)
[2024-07-01] MEDS: TYLENOL 650 MG PO (18:40)
[2024-07-01 20:04] VITALS: BP 164/101; BMI 19.4
[2024-07-01] MEDS: LEXAPRO PO (21:32)
[2024-07-01] MEDS: PAXLOVID 150-100 MG DOSE PACK 1 DOSE PO (21:32)
[2024-07-01] MEDS: TOPROL XL PO (21:34)
[2024-07-01] MEDS: KEPPRA 1000 MG IV (23:54)
[2024-07-02] MEDS: LOPRESSOR 5 MG IV (00:05)
[2024-07-02] MEDS: HEPARIN 5000 UNITS SC ×4 (00:08→23:48)
[2024-07-02] MEDS: TOPROL XL PO ×2 (00:22→23:48)
[2024-07-02] MEDS: LEXAPRO PO ×2 (00:22→23:48)
[2024-07-02] MEDS: ATIVAN 0.25 MG IV (02:03)
[2024-07-02] MEDS: NSS (PRESERVATIVE FREE) 0.125 ML IV (02:04)
[2024-07-02] MEDS: NSS 1000 IV ×2 (03:36→14:07)
[2024-07-02 06:28] LABS: % Basophils 0.7 % (0-2); % Immature Granulocytes 0.8 % (0-0.5); % Lymphocytes 23.3 % (20.5-51.1); % Monocytes 7.2 % (1.7-9.3); Absolute Basophils 0.1 10^3/uL (0-0.2); Absolute Eosinophils 0.2 10^3/uL (0-0.7); Absolute Immature Granulocytes 0.1 10^3/uL (0-0.05); Absolute Lymphocytes 2.1 10^3/uL (1.2-3.4); Absolute Monocytes 0.6 10^3/uL (0.1-0.6); Absolute Neutrophils 5.8 10^3/uL (1.4-6.5); Hematocrit 36.6 % (37.0-47.0); Hemoglobin 11.7 g/dL (12.0-16.0); Mean Corpuscular Hgb 29.8 pg (27.0-31.0); Mean Corpuscular Volume 93.4 fL (81.0-99.0); Mean Platelet Volume 10.1 fL (7.4-10.4); Nucleated Red Blood Cells % 0 %; Platelet Count 275 10^3/uL (130-400); Red Blood Cell Count 3.92 10^6/uL (4.20-5.40); Red Cell Dist. Width 12.4 % (11.5-14.5); White Blood Cell Count 8.9 10^3/uL (4.8-10.8)
[2024-07-02 06:42] LABS: Blood Urea Nitrogen 25 mg/dl (7-17); Calcium 8.6 mg/dl (8.4-10.2); Carbon Dioxide 21 mmol/L (22-30); Chloride 111 mmol/L (98-107); Estimated Creatinine Clearance 25 ml/min; Glucose 93 mg/dl (70-99); Potassium 3.9 mmol/L (3.5-5.1); Sodium 145 mmol/L (135-145); eGFR 34.05
[2024-07-02 08:00] VITALS: BP 159/98
--- NOTE | 2024-07-02 08:38 | W.PN.HOSP.TC ---
Today's Communication/Plan
-
IV antibiotics. IV fluids. Psychiatry consult
Assessment / Plan
Assessment / Plan
Physical exam:
General: Acutely ill
HEENT: Normocephalic, Atraumatic and Dry Mucous Membranes
Respiratory: Clear to Auscultation; Negative Wheezes, Rales or Rhonchi
Cardiac: Regular Rhythm and S1/S2
GI: Soft, mild tender and Nondistended
Musculoskeletal: No Clubbing, No Cyanosis and No Edema
Neuro: Awake, Alert and Disoriented
Psych: Calm
A/P:
Acute toxic metabolic encephalopathy:
Multifactorial but likely UTI and dehydration and COVID-[address] of the head unremarkable
manager ent involvement since she might need placement--> shoe parts caser asked for psychiatry evaluation in the setting of possible level 2 requirement.
Psychiatry consulted-discussed with psychiatry via [place] text today.
Discussed with family at bedside both nieces today on 07/02
PT OT eval
UTI:
Continue IV ceftriaxone 1 g daily
Urinalysis with positive nitrite, pyuria 15 WBC, and few urine bacteria.
Follow-up urine culture-urine culture still pending
LUISA on CKD:
Creatinine 1.7-->1.6 today
Last creatinine in December 2023 was 1.2
Cont IVF but decrease rate
Avoid nephrotoxic
US kidney with chronic medical renal disease
Monitor renal function in a.m.
COVID-19:
Patient is not hypoxic
She was tested positive as outpatient although tested negative today while she has been on treatment.
Completed course of Paxlovid
Isolation precautions should remain as per policy and CDC guidelines
Symptomatic care and monitor
Parkinson's disease:
Per family she is not on medications in order to avoid side effects and her underlying comorbidities
Hypertension:
Continue home antihypertensives
Hyperlipidemia:
Continue home statins
History of CVA:
Continue antiplatelets and statins
Seizures disorder:
Continue antiseizure medications--> will switch Keppra IV 1000 mg twice a day since she is not taking it orally.
Seizure precautions
Dementia:
Continue to monitor mental status and behavioral status
Chronic back pain with spinal stenosis:
Pain control with Tylenol as needed for now
Depression:
Continue home antidepressant
DVT prophylaxis:
Heparin SQ
CODE STATUS:
DNR
Anticipated Discharge: 24 - 48 hours
Subjective/Interval History
-
Date of Service: July 02, 2024
Patient alert but disoriented. Still very confused and with disorganized thoughts. Afebrile. Not taking some of her oral medications.
Objective Data
-
Labs:
Laboratory Results
07/02/24
05:29
WBC 8.9
Hgb 11.7 L
Hct 36.6 L
Plt Count 275
Sodium 145
Potassium 3.9
Chloride 111 H
Carbon Dioxide 21 L
BUN 25 H
Creatinine 1.6 H
Glucose 93
Calcium 8.6
Vital Signs:
Vital Signs
Temp Pulse Resp BP Pulse Ox
98.7 F 96 19 189/111 92
07/01/24 23:23 07/02/24 00:22 07/01/24 23:23 07/02/24 00:22 07/01/24 23:23
I&O
07/01/24 07/02/24 07/03/24
06:59 06:59 06:59
Intake Total 1240 / 1240
Balance 1240 / 1240
[2024-07-02] MEDS: PROTONIX PO (08:49)
[2024-07-02 11:27] VITALS: BP 154/88
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
[2024-07-02] MEDS: KEPPRA 1000 MG IV ×2 (14:07→20:16)
[2024-07-02] MEDS: DILAUDID 0.25 MG IV (14:23)
[2024-07-02] MEDS: STERILE WATER FOR INJECTION 10 ML IV (17:32)
[2024-07-02] MEDS: ROCEPHIN 1000 MG IV (17:32)
[2024-07-02] MEDS: APRESOLINE 10 MG IV (20:31)
--- NOTE | 2024-07-02 20:54 | PTCARENOTE ---
Addendum entered by Vee Plata RN 07/03/24 02:24:
when attempting to give meds- had crushed meds in applesauce, pt spit out the applesauce/meds
Original Note:
pt ambulated to brp and around the room w/ RW x1. pt is unsteady and requires constant assistance w/ ambulation. pt has hx dementia, delirium, Parkinson, and developmental delays. she is uncooperative, and restless. pt blood pressure and HR
elevated - administered prn hydralazine. attempted meds but pt spit them out. pt refuses to take meds and drink any water. pt is on med sitter and bed alarm plug in.
[2024-07-02] MEDS: PLAVIX PO (23:48)
[2024-07-02] MEDS: LIPITOR PO (23:48)
[2024-07-03] MEDS: NSS 1000 IV (03:04)
[2024-07-03 07:20] VITALS: BP 193/134
[2024-07-03] MEDS: PROTONIX PO (09:15)
[2024-07-03] MEDS: KEPPRA 1000 MG IV ×2 (09:15→20:02)
[2024-07-03] MEDS: HEPARIN 5000 UNITS SC ×3 (09:16→23:45)
[2024-07-03 10:00] LABS: % Basophils 0.8 % (0-2); % Eosinophils 0.7 % (0-6); % Immature Granulocytes 0.7 % (0-0.5); % Lymphocytes 17.5 % (20.5-51.1); % Monocytes 7.9 % (1.7-9.3); % Neutrophils 72.4 % (42.2-75.2); Absolute Basophils 0.1 10^3/uL (0-0.2); Absolute Eosinophils 0.1 10^3/uL (0-0.7); Absolute Immature Granulocytes 0.1 10^3/uL (0-0.05); Absolute Lymphocytes 1.5 10^3/uL (1.2-3.4); Absolute Monocytes 0.7 10^3/uL (0.1-0.6); Absolute Neutrophils 6.3 10^3/uL (1.4-6.5); Hematocrit 38.1 % (37.0-47.0); Hemoglobin 11.9 g/dL (12.0-16.0); Mean Corp Hgb Conc. 31.2 g/dL (33.0-37.0); Mean Corpuscular Hgb 30.2 pg (27.0-31.0); Mean Corpuscular Volume 96.7 fL (81.0-99.0); Mean Platelet Volume 10.3 fL (7.4-10.4); Nucleated Red Blood Cells % 0 %; Platelet Count 244 10^3/uL (130-400); Red Blood Cell Count 3.94 10^6/uL (4.20-5.40); Red Cell Dist. Width 12.6 % (11.5-14.5); White Blood Cell Count 8.7 10^3/uL (4.8-10.8)
[2024-07-03 10:13] LABS: Blood Urea Nitrogen 18 mg/dl (7-17); Calcium 7.9 mg/dl (8.4-10.2); Carbon Dioxide 17 mmol/L (22-30); Chloride 116 mmol/L (98-107); Estimated Creatinine Clearance 33 ml/min; Glucose 99 mg/dl (70-99); Potassium 3.9 mmol/L (3.5-5.1); Sodium 147 mmol/L (135-145); eGFR 48.09
[2024-07-03] MEDS: TYLENOL/FEVERALL 325 MG RECTAL (11:45)
--- NOTE | 2024-07-03 12:37 | W.PN.HOSP.TC ---
Today's Communication/Plan
-
see A/P
Assessment / Plan
Assessment / Plan
Physical exam:
General: Acutely ill
HEENT: Normocephalic, Atraumatic and Dry Mucous Membranes
Respiratory: Clear to Auscultation; Negative Wheezes, Rales or Rhonchi
Cardiac: Regular Rhythm and S1/S2
GI: Soft, mild tender and Nondistended
Musculoskeletal: No Clubbing, No Cyanosis and No Edema
Neuro: Awake, Alert and Disoriented
Psych: Calm
A/P:
# Acute metabolic encephalopathy, Multifactorial but likely UTI, dehydration and COVID-19 with underlying dementia
CT of the head unremarkable
position classification manager involvement since she might need placement -> geriatric case manager asked for psychiatry evaluation in the setting of possible level 2 requirement.
Psychiatry consulted, recc continuing existing Lexapro 10 mg daily.
PT OT recc SNF
# UTI:
Urine culture positive for GNR, follow S/S
Continue IV ceftriaxone 1 g daily
# LUISA on CKD 3
Prerenal LUISA has resolved
Creatinine 1.7 on admission, today at 1.2 , cont to follow SCr
observe off additional IVF
Avoid nephrotoxic
US kidney with chronic medical renal disease
# Hypernatremia, due to poor oral intake
change NSS to D5W
Follow Na level
# COVID-19 infection without hypoxia
She was tested positive as outpatient, but tested negative on admission 07/01
Completed course of Paxlovid
Isolation precaution for total 10 days
Symptomatic care and monitor
# Parkinson's disease:
Per family, she is not on medications in order to avoid side effects and her underlying comorbidities
# Hypertension:
Continue home antihypertensives
# Hyperlipidemia:
Continue home statins
# History of CVA:
Continue antiplatelets and statins
# Seizures disorder:
Continue antiseizure medication, SUPERVISOR MATTRESS AND BOXSPRINGS PO Keppra switched to IV 1000 mg twice a day due to poor PO intake
Seizure precautions
# Dementia:
Pt is awake, not orientated
Continue to monitor mental status and behavioral status
# Chronic back pain with spinal stenosis:
Pain control with Tylenol as needed for now
# Depression:
Continue home antidepressant
DVT prophylaxis: Heparin SQ
CODE STATUS: DNR
d/w POA niece on the phone. D/w GOC if pt continues to refuse to eat. POA is leaning toward hospice if pt continues to refuse to eat, which is reasonable.
Anticipated Discharge: 24 - 48 hours
Subjective/Interval History
-
Date of Service: July 03, 2024
Objective Data
-
Labs:
Laboratory Results
07/03/24
09:45
WBC 8.7
Hgb 11.9 L
Hct 38.1
Plt Count 244
Sodium 147 H
Potassium 3.9
Chloride 116 H
Carbon Dioxide 17 L
BUN 18 H
Creatinine 1.2 H
Glucose 99
Calcium 7.9 L
Vital Signs:
Vital Signs
Temp Pulse Resp BP Pulse Ox
36.6 C 115 18 193/134 94
07/03/24 07:20 07/03/24 07:20 07/03/24 07:20 07/03/24 07:20 07/03/24 08:52
I&O
07/02/24 07/03/24 07/04/24
06:59 06:59 06:59
Intake Total 1240 / 1240 2070
Balance 1240 / 1240 2070
Review of Systems
-
Unable to obtain full review of systems at this time due to: Dementia
Data Reviewed
-
Labs: Labs Reviewed by me
[2024-07-03] MEDS: D5W 1000 IV (14:00)
[2024-07-03 15:40] VITALS: BP 214/153
--- NOTE | 2024-07-03 15:43 | CM ---
Reviewed the chart notes and spoke with the patient's niece Eliza at the bedside. Discussed discharge plans. Family is hoping for [facility], but would agree to [facility] temporarily. Referral sent to [facility] with [facility] attached. CM continues to be
available to patient/family and is monitoring medical plan for needs at discharge.
Plan: Discharge to SNF/rehab once bed secured and precert obtained.
[2024-07-03] MEDS: ROCEPHIN 1000 MG IV (18:34)
[2024-07-03] MEDS: STERILE WATER FOR INJECTION 10 ML IV (18:35)
[2024-07-03] MEDS: TOPROL XL PO (22:15)
[2024-07-03] MEDS: LEXAPRO PO (22:37)
[2024-07-03] MEDS: LIPITOR PO (22:37)
[2024-07-03] MEDS: PLAVIX PO (22:37)
[2024-07-03 23:40] VITALS: BP 180/96
[2024-07-03] MEDS: RISPERDAL M-TAB (ORALLY DISINTEGRATING) 0.5 MG PO (23:45)
[2024-07-04] VITALS (9 sets, daily range): BP systolic 119–197; BP diastolic 64–120; BMI 19.7
--- NOTE | 2024-07-04 00:02 | PTCARENOTE ---
Pt AAOx1, confused and anxious. Pt hypertensive all day; tense her body and cries out when the blood pressure cuff is applied. Automatic BP's reading 250 systolic, manual BP 180/96. D/w covering DATABASE MARKETING ANALYST, pt has not taken PO meds in days, including HS
Lexapro, one-time dose 0.5mg SL Risperdal ordered and administered.
--- NOTE | 2024-07-04 01:32 | PTCARENOTE ---
Pt more calm, mildly drowsy. Automatic BP continues to read 200 systolic, repeat manual BP 162/84.
[2024-07-04] MEDS: D5W 1000 IV (05:30)
[2024-07-04 07:41] LABS: Hematocrit 34.2 % (37.0-47.0); Hemoglobin 11.4 g/dL (12.0-16.0); Mean Corp Hgb Conc. 33.3 g/dL (33.0-37.0); Mean Corpuscular Hgb 30.8 pg (27.0-31.0); Mean Corpuscular Volume 92.4 fL (81.0-99.0); Mean Platelet Volume 10.3 fL (7.4-10.4); Platelet Count 233 10^3/uL (130-400); Red Cell Dist. Width 12.5 % (11.5-14.5); White Blood Cell Count 9.5 10^3/uL (4.8-10.8)
[2024-07-04 08:07] LABS: Blood Urea Nitrogen 15 mg/dl (7-17); Calcium 7.5 mg/dl (8.4-10.2); Carbon Dioxide 21 mmol/L (22-30); Chloride 111 mmol/L (98-107); Estimated Creatinine Clearance 37 ml/min; Glucose 106 mg/dl (70-99); Magnesium 1.4 mg/dl (1.6-2.3); Potassium 3.9 mmol/L (3.5-5.1); Sodium 145 mmol/L (135-145); eGFR 53.39
[2024-07-04] MEDS: KEPPRA 1000 MG IV ×2 (08:19→20:20)
[2024-07-04] MEDS: HEPARIN 5000 UNITS SC ×2 (08:19→16:24)
[2024-07-04] MEDS: PROTONIX PO (08:20)
[2024-07-04] MEDS: APRESOLINE 10 MG IV ×2 (09:26→16:24)
--- NOTE | 2024-07-04 09:31 | PN.CDI ---
CDI
- -
CDI:
Physician Documentation Request
Admit Date: 07/01/24 18:02
Dear Doctor Vangie,
Patient admitted for encephalopathy.
Please review the following and provide your response in the progress notes.
Clinical Indicators:
Height: 5' 3'
Weight: 111 lbs
BMI: 19.7
If possible, please provide an associated diagnosis related to the abnormal BMI, such as:
Underweight
Cachectic
BMI is not significant
Other
BMI < or = to 19.9
Underweight
Weight Loss
Cachectic
Anorexia
Use of terms such as suspected, likely, concern for, or probable (associated with a specific diagnosis that is being evaluated, monitored, or treated as if it exists) are acceptable and can be coded in the inpatient setting, when documented at the
time of discharge.
Thank you,
Luci Langley RN, BSN
CDI Specialist
Available via [employer] text
Please use your independent medical judgment in providing your response.
--- NOTE | 2024-07-04 10:28 | W.PN.UPDATE ---
Update Note
Progress Note Update
Patient seen at bedside working with PT, chart reviewed, discussed with staff. Ms. Monsalve remains confused but was more alert. She did eat breakfast, had a coffee, and ice cream. Offers no complaints. DC plan for SNF likely.
Impression/Recommendation: Dementia, worsening, with superimposed delirium due to medical factors - Continue Lexapro 10 mg daily. No indication for additional psychotropic medications at this time.
[2024-07-04 12:40] LABS: Glucose - Point of Care 140 mg/dl (70-99)
--- NOTE | 2024-07-04 12:55 | W.PN.HOSP.TC ---
Today's Communication/Plan
-
see A/P
Assessment / Plan
Assessment / Plan
Physical exam:
General: Chronically ill
HEENT: Normocephalic, Atraumatic and Dry Mucous Membranes
Respiratory: Clear to Auscultation; Negative Wheezes, Rales or Rhonchi
Cardiac: Regular Rhythm and S1/S2
GI: Soft, mild tender and Nondistended
Musculoskeletal: No Clubbing, No Cyanosis and No Edema
Neuro: Awake, Alert and Disoriented
Psych: Calm
A/P:
# Acute metabolic encephalopathy, multifactorial but likely 2/2 UTI, dehydration and COVID-19; with underlying severe dementia
CT of the head unremarkable
education and training manager involvement since she might need placement -> pillowcase maker asked for psychiatry evaluation in the setting of possible level 2 requirement.
Psychiatry consulted, recc continuing existing Lexapro 10 mg daily.
PT OT recc SNF
# UTI:
Urine culture positive for E coli, sensitivity reviewed
pt is s/p IV ceftriaxone x3 days, completed treatment
# WORKFORCE DEVELOPMENT VICE PRESIDENT called for possible seizure activity 07/04
Pt was found with stiff RUE
She has been on IV Keppra during hospital stay
DC further ceftriaxone
d/w Neuro Dr Winter, who felt there is nothing to offer.
d/w GOC with ace at bedside. Neuro agrees with GOC discussion and also discussed GOC with nievelina/POA.
# LUISA on CKD 3
Prerenal LUISA has resolved
Creatinine 1.7 on admission, today at 1.2 , cont to follow SCr
observe off additional IVF
Avoid nephrotoxic
US kidney with chronic medical renal disease
# Hypernatremia, due to poor oral intake, resolved
s/p D5W, change back to NSS
Follow Na level
# COVID-19 infection without hypoxia
She was tested positive as outpatient, but tested negative on admission 07/01
Completed course of Paxlovid
Isolation precaution for total 10 days
Symptomatic care and monitor
# Parkinson's disease:
Per family, she is not on medications in order to avoid side effects and her underlying comorbidities
# Hypertension:
Continue home antihypertensives
# Hyperlipidemia:
Continue home statins
# History of CVA:
Continue antiplatelets and statins
# Seizures disorder:
Continue antiseizure medication, MUSIC THERAPY SPECIALIST PO Keppra switched to IV 1000 mg twice a day due to poor PO intake
Seizure precautions
# Severe dementia:
Pt is awake, not orientated
Continue to monitor mental status and behavioral status
# Chronic back pain with spinal stenosis:
Pain control with Tylenol as needed for now
# Depression:
Continue home antidepressant
DVT prophylaxis: Heparin SQ
CODE STATUS: DNR
d/w ace Riggs at bedside at great length. Discussed GOC
total time spent 55 min
Anticipated Discharge: 24 - 48 hours
Subjective/Interval History
-
Date of Service: July 04, 2024
Objective Data
-
Labs:
Laboratory Results
07/04/24
06:23
WBC 9.5
Hgb 11.4 L
Hct 34.2 L
Plt Count 233
Sodium 145
Potassium 3.9
Chloride 111 H
Carbon Dioxide 21 L
BUN 15
Creatinine 1.1 H
Glucose 106 H
Calcium 7.5 L
Vital Signs:
Vital Signs
Temp Pulse Resp BP Pulse Ox
36.5 C 119 18 160/76 93
07/04/24 07:20 07/04/24 11:27 07/04/24 07:20 07/04/24 11:27 07/04/24 07:20
I&O
07/03/24 07/04/24 07/05/24
06:59 06:59 06:59
Intake Total 2070 1320 / 1320
Balance 2070 / 132
Review of Systems
-
Unable to obtain full review of systems at this time due to: Dementia
Data Reviewed
-
Labs: Labs Reviewed by me
[2024-07-04] MEDS: NSS 500 IV (13:39)
--- NOTE | 2024-07-04 15:09 | CM ---
Reviewed the chart notes and spoke with the patient's niece Keely at the bedside. Plan is SNF. Rapid call on patient for seizure like activity. No change in plan of care. CM continues to be available to patient/family and is monitoring medical
plan for needs at discharge.
Plan: SNF once bed secured and auth obtained. [facility] able to accept patient. Family hoping for [facility].
[2024-07-04] MEDS: MAGNESIUM SULFATE 100 IV (16:21)
[2024-07-04] MEDS: LOPRESSOR 5 MG IV ×2 (16:23→23:09)
[2024-07-04] MEDS: FLAGYL 500 MG 100 IV (17:30)
[2024-07-04] MEDS: ROCEPHIN 1000 MG IV (17:31)
[2024-07-04] MEDS: ZOFRAN 4 MG IV (19:31)
--- NOTE | 2024-07-04 20:25 | PTCARENOTE ---
Pt tachycardic this afternoon, received 5mg IV Lopressor, see MAR. Pt persistently tachycardic in the 130's, hypertensive BP 188/107 while sleeping, febrile at 102.3. Placed pt on telemetry for closer monitoring. D/w covering SALESPERSON FLORIST SUPPLIES, rectal Tylenol
ordered. Pt not yet due for PRN Hydralazine.
[2024-07-04] MEDS: TYLENOL/FEVERALL 650 MG RECTAL (20:58)
[2024-07-04] MEDS: LIPITOR PO (21:09)
[2024-07-04] MEDS: NSS IV (21:09)
[2024-07-04] MEDS: LEXAPRO PO (21:09)
[2024-07-04] MEDS: PLAVIX PO (21:09)
[2024-07-04] MEDS: TOPROL XL PO (21:10)
[2024-07-05] VITALS (7 sets, daily range): BP systolic 151–182; BP diastolic 81–100; BMI 19.5
[2024-07-05] MEDS: NSS 1000 IV ×3 (00:06→17:32)
[2024-07-05] MEDS: HEPARIN 5000 UNITS SC ×3 (00:07→17:36)
[2024-07-05] MEDS: FLAGYL 500 MG 100 IV ×3 (01:47→17:34)
[2024-07-05] MEDS: TYLENOL/FEVERALL 650 MG RECTAL (03:24)
[2024-07-05] MEDS: APRESOLINE 10 MG IV ×2 (03:24→22:33)
--- NOTE | 2024-07-05 04:37 | DOWNTIME ---
There was a [employer] Client Drywall Worker Downtime on 07/05/2024 from 0100 to 07/05/2024 at 0350. Downtime documentation of patient's care, including medication administrations, has been reconciled in the electronic record per guidelines. Refer to the
patient's paper chart under the miscellaneous tab to see printed paper medication records and downtime forms.
[2024-07-05 08:15] LABS: Hemoglobin 10.7 g/dL (12.0-16.0); Mean Corp Hgb Conc. 33.4 g/dL (33.0-37.0); Mean Corpuscular Hgb 30.5 pg (27.0-31.0); Mean Corpuscular Volume 91.2 fL (81.0-99.0); Mean Platelet Volume 10.5 fL (7.4-10.4); Platelet Count 224 10^3/uL (130-400); Red Blood Cell Count 3.51 10^6/uL (4.20-5.40); Red Cell Dist. Width 12.9 % (11.5-14.5); White Blood Cell Count 12.5 10^3/uL (4.8-10.8)
[2024-07-05] MEDS: KEPPRA 1000 MG IV ×2 (08:33→20:52)
[2024-07-05] MEDS: PROTONIX PO (08:34)
[2024-07-05 11:15] LABS: Blood Urea Nitrogen 18 mg/dl (7-17); Calcium 6.8 mg/dl (8.4-10.2); Carbon Dioxide 19 mmol/L (22-30); Chloride 113 mmol/L (98-107); Estimated Creatinine Clearance 29 ml/min; Glucose 113 mg/dl (70-99); Magnesium 3.2 mg/dl (1.6-2.3); Potassium 2.8 mmol/L (3.5-5.1); Sodium 144 mmol/L (135-145); eGFR 39.97
--- NOTE | 2024-07-05 11:56 | W.PN.HOSP.TC ---
Addendum entered and electronically signed by Charisma Vences MD 07/05/24 12:47:
# Underweight
Original Note:
Today's Communication/Plan
-
see A/P
GOC discussion ongoing
Assessment / Plan
Assessment / Plan
A/P:
# Acute metabolic encephalopathy, multifactorial but likely 2/2 UTI, dehydration and COVID-19; with underlying severe dementia
CT of the head unremarkable
project manager retail involved since she might need placement -> case repairer asked for psychiatry evaluation in the setting of possible level 2 requirement.
Psychiatry consulted, recc continuing existing Lexapro 10 mg daily.
PT OT recc SNF
# UTI:
Urine culture positive for E coli, sensitivity reviewed
s/p IV ceftriaxone
# SPEECH LANGUAGE PATHOLOGY ASSISTANT called for possible seizure activity 07/04
Pt was found with stiff RUE
She has been on IV Keppra during hospital stay
d/w Neuro Dr Winter, who felt there is nothing to offer. Neuro discussed GOC with niece/POA.
# Sepsis likely aspiration from seizure activity
# Acute hypoxic respiratory insufficiency
Placed on 2L NC, she is not on home O2
follow blood cultures from 07/04
CXR from 07/04: Low lung volumes with slightly increased bibasilar opacities which can be seen with atelectasis although pneumonitis could appear similar.
restarted Abx ceftriaxone/Flagyl
NPO with gentle IVF
SPL eval
# LUISA on CKD 3
Creatinine 1.7 on admission, today at 1.4 , cont to follow SCr
restarted gentle IVF
Avoid nephrotoxic
US kidney with chronic medical renal disease
# Hypernatremia, due to poor oral intake, resolved
# COVID-19 infection without hypoxia
She was tested positive as outpatient, but tested negative on admission 07/01
Completed course of Paxlovid
Isolation precaution for total 10 days
Symptomatic care and monitor
# Parkinson's disease:
Per family, she is not on medications in order to avoid side effects and her underlying comorbidities
# Hypertension:
Continue home antihypertensives
# Hyperlipidemia:
Continue home statins
# History of CVA:
Continue antiplatelets and statins
# Seizures disorder:
Continue antiseizure medication, MEDICAL SERVICE REPRESENTATIVE PO Keppra switched to IV 1000 mg twice a day due to poor PO intake
# Severe dementia:
Pt is awake, not orientated
Continue to monitor mental status and behavioral status
# Chronic back pain with spinal stenosis:
Pain control with Tylenol as needed for now
# Depression:
Continue home antidepressant
# Hypokalemia
# Hypomagnesemia
# Hypocalcemia
replete lytes IV
DVT prophylaxis: Heparin SQ
CODE STATUS: DNR
d/w nievelina Riggs and pt's sister in person. Discussed extensively including GOC. Family agreeable with hospice but would like SPL eval first to determine the extent pt's swallowing function/dysphagia.
d/w RN
d/w CM
total time spent 55 min
Anticipated Discharge: > 48 hours
Subjective/Interval History
-
Date of Service: July 05, 2024
Objective Data
-
Labs:
Laboratory Results
07/05/24
07:47
WBC 12.5 H
Hgb 10.7 L
Hct 32.0 L
Plt Count 224
Sodium 144
Potassium 2.8 L D
Chloride 113 H
Carbon Dioxide 19 L
BUN 18 H
Creatinine 1.4 H
Glucose 113 H
Calcium 6.8 L*
Vital Signs:
Vital Signs
Temp Pulse Resp BP Pulse Ox
36.4 C 94 18 151/88 95
07/05/24 11:06 07/05/24 11:06 07/05/24 11:06 07/05/24 11:06 07/05/24 11:06
I&O
07/04/24 07/05/24 07/06/24
06:59 06:59 06:59
Intake Total 1320 / 1320 1560 / 1560
Balance 1320 / 1320 1560 / 1560
Review of Systems
-
Unable to obtain full review of systems at this time due to: Dementia
Physical Exam
-
General: Well Developed, Comfortable, Respiratory Distress and Appears Chronically Ill
HEENT: Normocephalic, Atraumatic, Nose Appears Normal, Ears Appear Normal and Oxygen (2L NC)
Respiratory: Clear to Auscultation and Non Labored Respirations; Negative Accessory Resp Muscle Use
Cardiac: Regular Rhythm and S1/S2
GI: Soft, Nontender, Nondistended and Normal Bowel Sounds
Skin: Warm and Dry
Neuro: Awake
Psych: Calm and Apparent Dementia
Data Reviewed
-
Labs: Labs Reviewed by me
--- NOTE | 2024-07-05 13:50 | CM ---
Reviewed the chart notes and spoke with the patient's niece Hiede outside the patient's room. Family waiting on speech therapy to decide discharge plan. CM continues to be available to patient/family and is monitoring medical plan for needs at
discharge.
Plan: Discharge plans will depend on whether the patient is cleared to eat or not.
[2024-07-05] MEDS: CALCIUM GLUCONATE 100 IV (13:58)
[2024-07-05] MEDS: KCL 270 MEQ IV (13:58)
--- NOTE | 2024-07-05 15:49 | PTOTSP ---
Speech Therapy Evaluation:
Pt exhibits clinical signs of oropharyngeal dysphagia, likely chronic in nature related to seizures, cognitive impairment, Dementia, Parkinson's, history of CVA, and history of dysphagia, compounded by acute metabolic encephalopathy. PO trials
limited d/t pt declining pureed solids and expectorating regular solids, however no s/sx of aspiration observed with thin liquids via cup. Recommend diet downgrade to minced and most solids to assist in swallow safety and efficiency given oral
deficits with regular solids and current mentation.
Recommend:
1. Diet downgrade to IDDSI Level 5 (minced and moist) solids and thin liquids
2. Medications crushed in puree
3. Aspiration precautions: upright all meals; small bites/sips; slow rate; 1:1 assistance and supervision with PO intake; monitor labs/CXR; d/c oral diet if GUY decreases
4. ST to follow to monitor tolerance of current diet level, assess candidacy to upgrade diet, and determine if VSE warranted
--- NOTE | 2024-07-05 17:09 | W.PN.UPDATE ---
Update Note
Progress Note Update
Pts chart reviewed and discussed with nursing. Pt with droplet precautions and in soft restraints, unable to participate in meaningful interview so did not assess at bedside due to risk of worsening agitation. Pt has been spitting out medications
and vacillating between confused and agitated.
Ordered zyprexa 2.5mg IM now so as to help settle pt and expedite safe removal of restraints
risperidone dissolving 0.5mg BID + 0.5mg BIDPRN acute agitation
psychiatry will continue to follow
[2024-07-05] MEDS: STERILE WATER FOR INJECTION 10 ML IV (17:32)
[2024-07-05] MEDS: ZYPREXA 2.5 MG IM (17:33)
[2024-07-05] MEDS: ROCEPHIN 1000 MG IV (17:33)
[2024-07-05] MEDS: STERILE WATER FOR INJECTION 2.1 ML IM (17:34)
[2024-07-05] MEDS: RISPERDAL M-TAB (ORALLY DISINTEGRATING) 0.5 MG PO (20:52)
[2024-07-05] MEDS: LEXAPRO 10 MG PO (21:58)
[2024-07-05] MEDS: LIPITOR 40 MG PO (21:58)
[2024-07-05] MEDS: TOPROL XL 25 MG PO (21:58)
[2024-07-05] MEDS: PLAVIX 75 MG PO (21:58)
--- NOTE | 2024-07-05 22:25 | PTCARENOTE ---
Patients blood pressure 182/100, heart rate 105. Attempted to give patient her 0 medications. Patient took about half of the crushed medications. Patient spit up dinner and had a very similar event while attempting to take these medications in
apple sauce. Current diet minced and moist. PRN Hydralazine given due to elevated blood pressure.
[2024-07-06] VITALS (9 sets, daily range): BP systolic 142–191; BP diastolic 78–111; PULSE 83; BMI 20.2
[2024-07-06] MEDS: HEPARIN 5000 UNITS SC ×3 (00:13→15:02)
[2024-07-06] MEDS: NSS 1000 IV (01:55)
[2024-07-06] MEDS: FLAGYL 500 MG 100 IV ×3 (01:56→17:01)
[2024-07-06 06:55] LABS: Hemoglobin 9.9 g/dL (12.0-16.0); Mean Corpuscular Hgb 30.5 pg (27.0-31.0); Mean Corpuscular Volume 92.3 fL (81.0-99.0); Mean Platelet Volume 10.6 fL (7.4-10.4); Platelet Count 209 10^3/uL (130-400); Red Blood Cell Count 3.25 10^6/uL (4.20-5.40); Red Cell Dist. Width 13.1 % (11.5-14.5); White Blood Cell Count 10.2 10^3/uL (4.8-10.8)
[2024-07-06 07:23] LABS: Blood Urea Nitrogen 18 mg/dl (7-17); Calcium 7.1 mg/dl (8.4-10.2); Carbon Dioxide 18 mmol/L (22-30); Chloride 122 mmol/L (98-107); Estimated Creatinine Clearance 32 ml/min; Glucose 105 mg/dl (70-99); Magnesium 2.4 mg/dl (1.6-2.3); Potassium 3.4 mmol/L (3.5-5.1); Sodium 151 mmol/L (135-145); eGFR 43.69
--- NOTE | 2024-07-06 08:31 | PTCARENOTE ---
BP this AM is 180/111. Pt in no apparent distress, resting comfortably in bed at this time. RN and MD made aware.
[2024-07-06] MEDS: RISPERDAL M-TAB (ORALLY DISINTEGRATING) 0.5 MG PO ×2 (09:24→20:28)
[2024-07-06] MEDS: PROTONIX 40 MG PO (09:24)
[2024-07-06] MEDS: APRESOLINE 10 MG IV ×2 (09:25→15:25)
[2024-07-06] MEDS: KEPPRA 1000 MG IV ×2 (09:25→20:27)
--- NOTE | 2024-07-06 10:34 | PTCARENOTE ---
Patient's BP this AM 180/111, HR 98 NSR on tele monitor. MD made aware, PRN IV hydralazine administered by this RN per order. Per splicer operator RN report, patient with episode of emesis after being fed IDDSI-5 diet last evening; MD made aware, patient
okay for PO meds but hold on diet at this time per MD. B/L wrist restraints removed per MD request. Patient AAOx1, anxious and restless at times but making no attempts to get out of bed. Medsitter and bed alarm in place.
--- NOTE | 2024-07-06 10:37 | W.PN.UPDATE ---
Update Note
Progress Note Update
Psychiatry follow up for agitation in context of dementia with superimposed delirium. Chart reviewed. Patient was last seen by psych yesterday and received Zyprexa 2.5mg IM as a now order for severe agitation. Risperdal dissolving tablets 0.5mg BID
as well as 0.5mg BID PRN was started. Per nursing patient was restrained overnight but now out of restraints. She is restless and confused but tolerating this so far. She took her AM standing Risperdal.
A/P- Dementia, worsening, with superimposed delirium due to multiple medical factors; Continue Lexapro 10 mg daily as well as standing and PRN risperdal. Nursing will monitor agitation/PRN needs and update me as needed. Will follow up tomorrow.
--- NOTE | 2024-07-06 10:46 | W.PN.HOSP.TC ---
Today's Communication/Plan
-
see A/P
Assessment / Plan
Assessment / Plan
A/P:
# Acute metabolic encephalopathy, multifactorial but likely 2/2 UTI, dehydration and COVID-19; with underlying severe dementia
CT of the head unremarkable
disease case manager involved since she might need placement -> telephonic case manager asked for psychiatry evaluation in the setting of possible level 2 requirement.
Psychiatry consulted, recc continuing existing Lexapro 10 mg daily.
PT OT recc SNF
# UTI:
Urine culture positive for E coli, sensitivity reviewed
s/p IV ceftriaxone
# AN EMPLOYEE SPONSOR OR ADVOCATE AND called for possible seizure activity 07/04
Pt was found with stiff RUE
She has been on IV Keppra during hospital stay
d/w Neuro Dr Winter, who felt there is nothing to offer. Neuro discussed GOC with niece/POA.
# Sepsis likely aspiration from seizure activity
# Acute hypoxic respiratory insufficiency
Placed on 3L NC, she is not on home O2
blood cultures from 07/04 negative
CXR from 07/04: Low lung volumes with slightly increased bibasilar opacities which can be seen with atelectasis although pneumonitis could appear similar.
restarted Abx ceftriaxone/Flagyl for aspiration coverage
[facility] rec modified mince moist diet
she did not tolerate modified mince moist diet, vomited out per RN
# LUISA on CKD 3
Creatinine 1.7 on admission, today at 1.3, cont to follow SCr
gentle IVF
Avoid nephrotoxic
US kidney with chronic medical renal disease
# Hypernatremia, due to poor oral intake
restart D5W for recurrent hypernatremia
# COVID-19 infection without hypoxia
She was tested positive as outpatient, but tested negative on admission 07/01
Completed course of Paxlovid
Isolation precaution for total 10 days
Symptomatic care and monitor
# Parkinson's disease:
Per family, she is not on medications in order to avoid side effects and her underlying comorbidities
# Hypertension:
Continue home antihypertensives
# Hyperlipidemia:
Continue home statins
# History of CVA:
Continue antiplatelets and statins
# Seizures disorder:
Continue antiseizure medication, DESTINATION IMAGINATION COORDINATOR PO Keppra switched to IV 1000 mg twice a day due to poor PO intake
# Severe dementia:
Pt is awake, not orientated
Continue to monitor mental status and behavioral status
# Chronic back pain with spinal stenosis:
Pain control with Tylenol as needed for now
# Depression:
Continue home antidepressant
# Hypokalemia
# Hypomagnesemia
# Hypocalcemia
replete lytes IV
DVT prophylaxis: Heparin SQ
CODE STATUS: DNR
d/w ace GIO Kay on the phone. Extensive discussion including GOC
total time spent 55 min
Anticipated Discharge: 24 - 48 hours
Subjective/Interval History
-
Date of Service: July 06, 2024
Objective Data
-
Labs:
Laboratory Results
07/06/24
06:01
WBC 10.2
Hgb 9.9 L
Hct 30.0 L
Plt Count 209
Sodium 151 H
Potassium 3.4 L
Chloride 122 H
Carbon Dioxide 18 L
BUN 18 H
Creatinine 1.3 H
Glucose 105 H
Calcium 7.1 L
Vital Signs:
Vital Signs
Temp Pulse Resp BP Pulse Ox
36.9 C 98 18 180/111 95
07/06/24 07:25 07/06/24 09:25 07/06/24 07:25 07/06/24 09:25 07/06/24 10:29
I&O
07/05/24 07/06/24 07/07/24
06:59 06:59 06:59
Intake Total 1560 / 1560 0 0
Balance 1559 0
Review of Systems
-
Unable to obtain full review of systems at this time due to: Dementia
Physical Exam
-
General: Well Developed, Comfortable, Respiratory Distress and Appears Chronically Ill
HEENT: Normocephalic, Atraumatic, Nose Appears Normal, Ears Appear Normal and Oxygen (3L NC)
Respiratory: Clear to Auscultation and Non Labored Respirations; Negative Accessory Resp Muscle Use
Cardiac: Regular Rhythm and S1/S2
GI: Soft, Nontender, Nondistended and Normal Bowel Sounds
Skin: Warm and Dry
Neuro: Awake
Psych: Calm and Apparent Dementia
Data Reviewed
-
Labs: Labs Reviewed by me
[2024-07-06] MEDS: D5W with KCL 20 MEQ 1000 IV (11:21)
--- NOTE | 2024-07-06 12:00 | PTCARENOTE ---
Repeat BP s/p PRN IV hydralazine 172/76 RUE, manual taken by this RN 178/78. made aware, no new orders at this time.
[2024-07-06] MEDS: ROCEPHIN 1000 MG IV (17:00)
[2024-07-06] MEDS: STERILE WATER FOR INJECTION 10 ML IV (17:01)
[2024-07-06] MEDS: PLAVIX 75 MG PO (21:41)
[2024-07-06] MEDS: TOPROL XL 25 MG PO (21:41)
[2024-07-06] MEDS: LIPITOR 40 MG PO (21:41)
[2024-07-06] MEDS: LEXAPRO 10 MG PO (21:41)
[2024-07-07] VITALS (9 sets, daily range): BP systolic 149–189; BP diastolic 83–102; BMI 20.9
[2024-07-07] MEDS: APRESOLINE 10 MG IV ×4 (00:10→22:03)
[2024-07-07] MEDS: HEPARIN 5000 UNITS SC ×4 (00:14→23:28)
[2024-07-07] MEDS: FLAGYL 500 MG 100 IV ×3 (01:19→17:28)
[2024-07-07] MEDS: D5W with KCL 20 MEQ 1000 IV (06:24)
[2024-07-07 06:25] LABS: Hematocrit 30.5 % (37.0-47.0); Hemoglobin 10.3 g/dL (12.0-16.0); Mean Corp Hgb Conc. 33.8 g/dL (33.0-37.0); Mean Corpuscular Hgb 30.9 pg (27.0-31.0); Mean Corpuscular Volume 91.6 fL (81.0-99.0); Mean Platelet Volume 10.5 fL (7.4-10.4); Platelet Count 199 10^3/uL (130-400); Red Blood Cell Count 3.33 10^6/uL (4.20-5.40); White Blood Cell Count 10.3 10^3/uL (4.8-10.8)
[2024-07-07 06:50] LABS: Blood Urea Nitrogen 15 mg/dl (7-17); Calcium 7.1 mg/dl (8.4-10.2); Carbon Dioxide 19 mmol/L (22-30); Chloride 114 mmol/L (98-107); Estimated Creatinine Clearance 38 ml/min; Glucose 129 mg/dl (70-99); Potassium 3.4 mmol/L (3.5-5.1); Sodium 142 mmol/L (135-145); eGFR 53.39
[2024-07-07] MEDS: PROTONIX 40 MG PO (08:59)
[2024-07-07] MEDS: KEPPRA 1000 MG IV ×2 (08:59→20:15)
[2024-07-07] MEDS: RISPERDAL M-TAB (ORALLY DISINTEGRATING) 0.5 MG PO ×2 (08:59→20:14)
[2024-07-07] MEDS: KCL 270 MEQ IV (09:00)
--- NOTE | 2024-07-07 11:03 | W.PN.HOSP.TC ---
Today's Communication/Plan
-
see A/P
Assessment / Plan
Assessment / Plan
A/P:
# Acute metabolic encephalopathy, multifactorial but likely 2/2 UTI, dehydration and COVID-19; with underlying severe dementia
CT of the head unremarkable
pre owned sales manager involved since she might need placement -> corrections caseworker asked for psychiatry evaluation in the setting of possible level 2 requirement.
Psychiatry consulted, recc continuing existing Lexapro 10 mg daily.
PT OT recc SNF
# UTI:
Urine culture positive for E coli, sensitivity reviewed
s/p IV ceftriaxone
# AUTO BODY MAN called for possible seizure activity 07/04
Pt was found with stiff RUE
She has been on IV Keppra during hospital stay
d/w Neuro Dr Winter, who felt there is nothing to offer. Neuro discussed GOC with niece/POA.
# Sepsis likely aspiration from seizure activity
# Acute hypoxic respiratory insufficiency
Placed on 3L NC, she is not on home O2
blood cultures from 07/04 negative
CXR from 07/04: Low lung volumes with slightly increased bibasilar opacities which can be seen with atelectasis although pneumonitis could appear similar.
restarted Abx ceftriaxone/Flagyl for aspiration coverage, cover for 5 days total
SPL recc modified mince moist diet
Cont and monitor for tolerance
# Acute dysphagia likely 2/2 acute infection and progression of dementia
SPL recc modified mince moist diet
Cont and monitor for tolerance
DC further IVF support
If pt is able to continue diet without any further problem, the plan would be DC to SNF; if not, would readdress GOC for hospice. Family understands
# LUISA on CKD 3
Creatinine 1.7 on admission, today at 1.1, cont to follow SCr
Avoid nephrotoxic
US kidney with chronic medical renal disease
# Hypernatremia, due to poor oral intake
s/p D5W
# COVID-19 infection without hypoxia
She was tested positive as outpatient, but tested negative on admission 07/01
Completed course of Paxlovid
Isolation precaution for total 10 days
Symptomatic care and monitor
# Parkinson's disease:
Per family, she is not on medications in order to avoid side effects and her underlying comorbidities
# Hypertension:
Continue home antihypertensives
# Hyperlipidemia:
Continue home statins
# History of CVA:
Continue antiplatelets and statins
# Seizures disorder:
Continue antiseizure medication, JUNIOR STAFF ACCOUNTANT PO Keppra switched to IV 1000 mg twice a day due to poor PO intake
# Severe dementia:
Pt is awake, not orientated
Continue to monitor mental status and behavioral status
# Chronic back pain with spinal stenosis:
Pain control with Tylenol as needed for now
# Depression:
Continue home antidepressant
# Hypokalemia
# Hypomagnesemia
# Hypocalcemia
replete lytes IV
DVT prophylaxis: Heparin SQ
CODE STATUS: DNR
d/w niarleen Kay and Keely at bedside
d/w RN
Anticipated Discharge: > 48 hours
Subjective/Interval History
-
Date of Service: July 07, 2024
Objective Data
-
Labs:
Laboratory Results
07/07/24
05:45
WBC 10.3
Hgb 10.3 L
Hct 30.5 L
Plt Count 199
Sodium 142 D
Potassium 3.4 L
Chloride 114 H
Carbon Dioxide 19 L
BUN 15
Creatinine 1.1 H
Glucose 129 H
Calcium 7.1 L
Vital Signs:
Vital Signs
Temp Pulse Resp BP Pulse Ox
36.6 C 88 16 168/83 95
07/07/24 07:25 07/07/24 07:25 07/07/24 07:25 07/07/24 07:25 07/07/24 10:51
I&O
07/06/24 07/07/24 07/08/24
06:59 06:59 06:59
Intake Total 2279
Balance 2279
Review of Systems
-
Unable to obtain full review of systems at this time due to: Dementia
Physical Exam
-
General: Well Developed, Comfortable, Respiratory Distress and Appears Chronically Ill
HEENT: Normocephalic, Atraumatic, Nose Appears Normal, Ears Appear Normal and Oxygen (3L NC)
Respiratory: Clear to Auscultation and Non Labored Respirations; Negative Accessory Resp Muscle Use
Cardiac: Regular Rhythm and S1/S2
GI: Soft, Nontender, Nondistended and Normal Bowel Sounds
Skin: Warm and Dry
Neuro: Awake
Psych: Calm and Apparent Dementia
Data Reviewed
-
Labs: Labs Reviewed by me
--- NOTE | 2024-07-07 12:43 | CM ---
Reviewed the chart notes and spoke with nieces at the bedside GOC have been discussed with the family by the attending. Family not willing to place the patient on hospice/comfort care at this time. Updated Briseida from [facility]. HUGO
continues to be available to patient/family and is monitoring medical plan for needs at discharge.
Plan: Discharge to SNF/rehab once medically stable.
[2024-07-07 12:44] LABS: Keppra (Levetiracetam) 83 ug/mL (10-40)
[2024-07-07] MEDS: ROCEPHIN 1000 MG IV (17:27)
[2024-07-07] MEDS: STERILE WATER FOR INJECTION 10 ML IV (17:28)
[2024-07-07] MEDS: TOPROL XL 25 MG PO (21:57)
[2024-07-07] MEDS: LEXAPRO 10 MG PO (21:57)
[2024-07-07] MEDS: PLAVIX 75 MG PO (21:57)
[2024-07-07] MEDS: LIPITOR 40 MG PO (21:58)
[2024-07-07] MEDS: TRANDATE 5 MG IV (23:20)
[2024-07-08] VITALS (8 sets, daily range): BP systolic 150–197; BP diastolic 78–114; BMI 20.5
[2024-07-08] MEDS: FLAGYL 500 MG 100 IV ×3 (01:30→17:54)
[2024-07-08 05:41] LABS: Hematocrit 30.1 % (37.0-47.0); Hemoglobin 10.2 g/dL (12.0-16.0); Mean Corp Hgb Conc. 33.9 g/dL (33.0-37.0); Mean Corpuscular Hgb 31.1 pg (27.0-31.0); Mean Corpuscular Volume 91.8 fL (81.0-99.0); Mean Platelet Volume 11.1 fL (7.4-10.4); Platelet Count 214 10^3/uL (130-400); Red Blood Cell Count 3.28 10^6/uL (4.20-5.40); Red Cell Dist. Width 12.9 % (11.5-14.5); White Blood Cell Count 8.3 10^3/uL (4.8-10.8)
[2024-07-08 06:01] LABS: Blood Urea Nitrogen 15 mg/dl (7-17); Calcium 7.7 mg/dl (8.4-10.2); Carbon Dioxide 20 mmol/L (22-30); Chloride 113 mmol/L (98-107); Estimated Creatinine Clearance 38 ml/min; Glucose 105 mg/dl (70-99); Potassium 4.1 mmol/L (3.5-5.1); Sodium 142 mmol/L (135-145); eGFR 53.39
[2024-07-08] MEDS: KEPPRA 1000 MG IV ×2 (09:07→20:15)
[2024-07-08] MEDS: HEPARIN 5000 UNITS SC ×2 (09:07→17:55)
[2024-07-08] MEDS: PROTONIX 40 MG PO (09:07)
[2024-07-08] MEDS: RISPERDAL M-TAB (ORALLY DISINTEGRATING) 0.5 MG PO (09:08)
[2024-07-08] MEDS: COREG 3.125 MG PO ×2 (09:08→20:15)
--- NOTE | 2024-07-08 10:25 | W.PN.UPDATE ---
Update Note
Progress Note Update
patient seen chart reviewed. discussed w nursing and with dr garner. the patient is here given change in mental status. she has a number of medical issues . on jul 04 dr garner noted she has hx of parkinson's which is not treated bc of potential side
effects. she was placed in risperdal for agitation associated w dementia o.5 mg bid. given dx of pd that may not be the wisest choice as it can cause eps. today she was very pleasant when i saw her. she was approximately oriented 'winter'
(nursing says she told her this am it was 'frigid' out) she was aware that recently passed and adela coming. her tray was at the bedside and she was eager to eat after i set it up for her she ate with enthusiasm. she offered no
complaints.considered change to seroquel but nursing feels she is sensitive to sedation. it is possible she may not need any antipsychotic given rx of uti and other comoribidities and resolution of covid. have dc'ed risperdal for today. ordered
o.25 for tomorrow am and likely will dc if she continues with calm. noted keppra level is high. discussed w dr garner. will recheck and adjust accordingly
--- NOTE | 2024-07-08 11:18 | W.PN.HOSP.TC ---
Today's Communication/Plan
-
see A/P
Assessment / Plan
Assessment / Plan
A/P:
# Acute metabolic encephalopathy, multifactorial but likely 2/2 UTI, dehydration and COVID-19; with underlying severe dementia
CT of the head unremarkable
manager production involved since she might need placement -> employment case manager asked for psychiatry evaluation in the setting of possible level 2 requirement.
Psychiatry consulted, recc continuing existing Lexapro 10 mg daily.
PT OT recc SNF
# UTI:
Urine culture positive for E coli, sensitivity reviewed
s/p IV ceftriaxone
# WEAVING PROFESSOR called for possible seizure activity 07/04
Pt was found with stiff RUE
She has been on IV Keppra during hospital stay
d/w Neuro Dr Winter, who felt there is nothing to offer. Neuro discussed GOC with niece/POA.
# Sepsis likely aspiration from seizure activity
# Acute hypoxic respiratory insufficiency
Placed on 3L NC, she is not on home O2
blood cultures from 07/04 negative
CXR from 07/04: Low lung volumes with slightly increased bibasilar opacities which can be seen with atelectasis although pneumonitis could appear similar.
restarted Abx ceftriaxone/Flagyl for aspiration coverage, cover for 5 days total
SPL recc modified mince moist diet
Cont and monitor for tolerance, so far tolerating well
# Acute dysphagia likely 2/2 acute infection and progression of dementia
SPL recc modified mince moist diet, so far tolerating well
DC further IVF support
If pt is able to continue diet without further problem, the plan would be DC to SNF; if not, would readdress GOC for hospice. Family understands
# LUISA on CKD 3
Creatinine 1.7 on admission, today at 1.1, cont to follow SCr
Avoid nephrotoxic
US kidney with chronic medical renal disease
# Hypernatremia, due to poor oral intake
s/p D5W
# COVID-19 infection without hypoxia
She was tested positive as outpatient, but tested negative on admission 07/01
Completed course of Paxlovid
Isolation precaution for total 10 days
Symptomatic care and monitor
# Parkinson's disease:
Per family, she is not on medications in order to avoid side effects and her underlying comorbidities
# Hypertension:
Continue home antihypertensives
# Hyperlipidemia:
Continue home statins
# History of CVA:
Continue antiplatelets and statins
# Seizures disorder:
Continue antiseizure medication, TOWEL INSPECTOR PO Keppra switched to IV 1000 mg twice a day due to poor PO intake
Noted high Keppra level, check repeat level
# Severe dementia:
Pt is awake, not orientated
Continue to monitor mental status and behavioral status
# Chronic back pain with spinal stenosis:
Pain control with Tylenol as needed for now
# Depression:
Continue home antidepressant
# Hypokalemia
# Hypomagnesemia
# Hypocalcemia
repleted lytes IV
DVT prophylaxis: Heparin SQ
CODE STATUS: DNR
d/w ace Riggs at bedside
d/w RN
Anticipated Discharge: 24 - 48 hours
Subjective/Interval History
-
Date of Service: July 08, 2024
Objective Data
-
Labs:
Laboratory Results
07/08/24
04:25
WBC 8.3
Hgb 10.2 L
Hct 30.1 L
Plt Count 214
Sodium 142
Potassium 4.1
Chloride 113 H
Carbon Dioxide 20 L
BUN 15
Creatinine 1.1 H
Glucose 105 H
Calcium 7.7 L
Vital Signs:
Vital Signs
Temp Pulse Resp BP Pulse Ox
37.4 C 96 18 165/100 97
07/08/24 07:20 07/08/24 07:20 07/08/24 07:20 07/08/24 07:20 07/08/24 07:20
I&O
07/07/24 07/08/24 07/09/24
06:59 06:59 06:59
Intake Total 2280 / 2280 1080 / 1080
Balance 2280 / 2280 1080 / 1080
Review of Systems
-
Unable to obtain full review of systems at this time due to: Dementia
Physical Exam
-
General: Well Developed, Comfortable, Respiratory Distress and Appears Chronically Ill
HEENT: Normocephalic, Atraumatic, Nose Appears Normal, Ears Appear Normal and Oxygen (3L NC)
Respiratory: Clear to Auscultation and Non Labored Respirations; Negative Accessory Resp Muscle Use
Cardiac: Regular Rhythm and S1/S2
GI: Soft, Nontender, Nondistended and Normal Bowel Sounds
Skin: Warm and Dry
Neuro: Awake
Psych: Calm and Apparent Dementia
Data Reviewed
-
Labs: Labs Reviewed by me
[2024-07-08] MEDS: STERILE WATER FOR INJECTION 10 ML IV (17:55)
[2024-07-08] MEDS: ROCEPHIN 1000 MG IV (17:56)
[2024-07-08] MEDS: APRESOLINE 10 MG IV (18:14)
[2024-07-08] MEDS: FLUSH (NSS) 2 FLUSH IV (20:26)
[2024-07-08] MEDS: LEXAPRO 10 MG PO (22:31)
[2024-07-08] MEDS: LIPITOR 40 MG PO (22:31)
[2024-07-08] MEDS: PLAVIX 75 MG PO (22:31)
[2024-07-09] VITALS (7 sets, daily range): BP systolic 162–193; BP diastolic 80–109
[2024-07-09] MEDS: HEPARIN 5000 UNITS SC ×4 (00:22→23:15)
[2024-07-09] MEDS: FLAGYL 500 MG 100 IV ×2 (01:39→11:37)
[2024-07-09] MEDS: APRESOLINE 10 MG IV ×4 (03:11→23:15)
[2024-07-09 06:55] LABS: Hematocrit 31.4 % (37.0-47.0); Hemoglobin 10.4 g/dL (12.0-16.0); Mean Corp Hgb Conc. 33.1 g/dL (33.0-37.0); Mean Corpuscular Hgb 30.4 pg (27.0-31.0); Mean Corpuscular Volume 91.8 fL (81.0-99.0); Mean Platelet Volume 11.1 fL (7.4-10.4); Platelet Count 217 10^3/uL (130-400); Red Blood Cell Count 3.42 10^6/uL (4.20-5.40); White Blood Cell Count 7.7 10^3/uL (4.8-10.8)
[2024-07-09 07:05] LABS: Blood Urea Nitrogen 20 mg/dl (7-17); Calcium 8.5 mg/dl (8.4-10.2); Carbon Dioxide 22 mmol/L (22-30); Chloride 112 mmol/L (98-107); Estimated Creatinine Clearance 35 ml/min; Glucose 105 mg/dl (70-99); Potassium 4.1 mmol/L (3.5-5.1); Sodium 142 mmol/L (135-145); eGFR 48.09
[2024-07-09] MEDS: KEPPRA 1000 MG IV ×2 (08:40→20:50)
[2024-07-09] MEDS: RISPERDAL 0.25 MG PO (08:42)
[2024-07-09] MEDS: COREG 6.25 MG PO ×2 (08:42→20:50)
[2024-07-09] MEDS: PROTONIX 40 MG PO (08:42)
--- NOTE | 2024-07-09 11:20 | W.PN.UPDATE ---
Update Note
Progress Note Update
patient seen chart reviewed. spoke with nursing and with dr garner. the patient was very pleasant calmly sitting in a chair. she had eaten a little bit of breakfast. she did have the risperdal this am but nursing reports no incidents over the past 24
plus hours of aggression or agitation and the patient has been very cooperative. will dc risperdal. if an antipsychotic is needed would use seroquel given that it was charted on jul [address] garner's note that as per family there is a hx of
parkinsons which has not been treated bc potential side effects. . psych will sign off. please notify us if psych is needed to return.
--- NOTE | 2024-07-09 11:20 | W.PN.HOSP.TC ---
Today's Communication/Plan
-
see A/P
Assessment / Plan
Assessment / Plan
A/P:
# Acute metabolic encephalopathy, multifactorial but likely 2/2 UTI, dehydration and COVID-19; with underlying severe dementia
CT of the head unremarkable
industrial organization manager involved since she might need placement -> case liner asked for psychiatry evaluation in the setting of possible level 2 requirement.
Psychiatry consulted, recc continuing existing Lexapro 10 mg daily.
PT OT recc SNF
# UTI:
Urine culture positive for E coli, sensitivity reviewed
s/p IV ceftriaxone
# CHIP UNLOADER called for possible seizure activity 07/04
Pt was found with RUE stiffness
She has been on IV Keppra during hospital stay
d/w Neuro Dr Winter, who felt there is nothing to offer. Neuro discussed GOC with niece/POA.
# Sepsis likely aspiration from seizure activity
# Acute hypoxic respiratory insufficiency, resolved
Placed on 3L NC, wean to RA. She is not on home O2
blood cultures from 07/04 negative
CXR from 07/04: Low lung volumes with slightly increased bibasilar opacities which can be seen with atelectasis although pneumonitis could appear similar.
restarted Abx ceftriaxone/Flagyl for aspiration coverage, cover for 5 days total
SPL recc modified mince moist diet. Cont and monitor for tolerance, so far tolerating well.
# Acute dysphagia likely 2/2 acute infection and progression of dementia
SPL recc modified mince moist diet, so far tolerating well
DC further IVF support
As pt is now able to tolerate modified diet without further problem, the plan is to DC to SNF
# LUISA on CKD 3
Creatinine 1.7 on admission, today at 1.2, cont to follow SCr
Avoid nephrotoxic
US kidney with chronic medical renal disease
# Hypernatremia, due to poor oral intake
s/p D5W
# COVID-19 infection without hypoxia
She was tested positive as outpatient, but tested negative on admission 07/01
Completed course of Paxlovid
Isolation precaution for total 10 days
Symptomatic care and monitor
# Parkinson's disease:
Per family, she is not on medications in order to avoid side effects and her underlying comorbidities
# Hypertension:
Continue home antihypertensives
# Hyperlipidemia:
Continue home statins
# History of CVA:
Continue antiplatelets and statins
# Seizures disorder:
Continue antiseizure medication, BAG BUNDLER PO Keppra switched to IV 1000 mg twice a day due to poor PO intake
Noted high Keppra level, check repeat level
# Severe dementia:
Pt is awake, not orientated. Minimally conversant.
Continue to monitor mental status and behavioral status
# Chronic back pain with spinal stenosis:
Pain control with Tylenol as needed for now
# Depression:
Continue home antidepressant
# Hypokalemia
# Hypomagnesemia
# Hypocalcemia
repleted lytes IV
DVT prophylaxis: Heparin SQ
CODE STATUS: DNR
d/w RN
d/w CM
updated ace Kay on the phone
Anticipated Discharge: 24 - 48 hours
Subjective/Interval History
-
Date of Service: July 09, 2024
Objective Data
-
Labs:
Laboratory Results
07/09/24
04:27
WBC 7.7
Hgb 10.4 L
Hct 31.4 L
Plt Count 217
Sodium 142
Potassium 4.1
Chloride 112 H
Carbon Dioxide 22
BUN 20 H
Creatinine 1.2 H
Glucose 105 H
Calcium 8.5
Vital Signs:
Vital Signs
Temp Pulse Resp BP Pulse Ox
36.4 C 88 18 162/80 94
07/09/24 11:05 07/09/24 11:05 07/09/24 11:05 07/09/24 11:05 07/09/24 11:05
I&O
07/08/24 07/09/24 07/10/24
06:59 06:59 06:59
Intake Total 1080 / 1080 600 / 600
Balance 1080 / 1080 600 / 600
Review of Systems
-
Unable to obtain full review of systems at this time due to: Dementia
Physical Exam
-
General: Well Developed, Comfortable and Appears Chronically Ill
HEENT: Normocephalic, Atraumatic, Nose Appears Normal and Ears Appear Normal
Respiratory: Clear to Auscultation and Non Labored Respirations; Negative Accessory Resp Muscle Use
Cardiac: Regular Rhythm and S1/S2
GI: Soft, Nontender, Nondistended and Normal Bowel Sounds
Skin: Warm and Dry
Neuro: Awake
Psych: Calm and Apparent Dementia
Data Reviewed
-
Labs: Labs Reviewed by me
[2024-07-09] MEDS: STERILE WATER FOR INJECTION IV (17:40)
[2024-07-09 20:32] LABS: Keppra (Levetiracetam) 87 ug/mL (10-40)
[2024-07-09] MEDS: LEXAPRO 10 MG PO (20:50)
[2024-07-09] MEDS: LIPITOR 40 MG PO (20:50)
[2024-07-09] MEDS: PLAVIX 75 MG PO (20:50)
[2024-07-10] VITALS (10 sets, daily range): BP systolic 119–174; BP diastolic 71–93; PULSE 80; O2SAT 96
[2024-07-10] MEDS: LOPRESSOR 5 MG IV (04:13)
[2024-07-10 06:05] LABS: Keppra (Levetiracetam) 60 ug/mL (10-40)
[2024-07-10 06:38] LABS: Hematocrit 31.4 % (37.0-47.0); Hemoglobin 10.4 g/dL (12.0-16.0); Mean Corp Hgb Conc. 33.1 g/dL (33.0-37.0); Mean Corpuscular Hgb 30.1 pg (27.0-31.0); Mean Corpuscular Volume 90.8 fL (81.0-99.0); Mean Platelet Volume 11.3 fL (7.4-10.4); Platelet Count 234 10^3/uL (130-400); Red Blood Cell Count 3.46 10^6/uL (4.20-5.40); Red Cell Dist. Width 13.3 % (11.5-14.5); White Blood Cell Count 8.1 10^3/uL (4.8-10.8)
[2024-07-10 07:02] LABS: Blood Urea Nitrogen 20 mg/dl (7-17); Calcium 9.2 mg/dl (8.4-10.2); Carbon Dioxide 23 mmol/L (22-30); Chloride 108 mmol/L (98-107); Estimated Creatinine Clearance 35 ml/min; Glucose 103 mg/dl (70-99); Potassium 3.9 mmol/L (3.5-5.1); Sodium 143 mmol/L (135-145); eGFR 48.09
--- NOTE | 2024-07-10 08:19 | W.PN.HOSP.TC ---
Today's Communication/Plan
-
Supportive care. Discharge planning in progress.
Assessment / Plan
Assessment / Plan
Physical exam:
General: Chronically ill
HEENT: Normocephalic, Atraumatic and Moist Mucous Membranes
Respiratory: Clear to Auscultation; Negative Wheezes, Rales or Rhonchi
Cardiac: Regular Rhythm and S1/S2
GI: Soft, Nontender and Nondistended
Musculoskeletal: No Clubbing, No Cyanosis and No Edema
Neuro: Awake, Alert and Disoriented
Psych: Calm
A/P:
Acute toxic metabolic encephalopathy:
Multifactorial but likely UTI and dehydration and COVID-19 with underlying dementia
CT of the head unremarkable
Psychiatry consult
E. coli UTI:
Finished course of antibiotics
Sepsis due to aspiration pneumonia:
Finished course of antibiotics
Diet per speech therapy
Seizure activity (known history of seizure disorder):
Continue IV Keppra 1 g every 12 hours and will switch to oral over the next [address] Vences has discussed with neurology and they did not recommend anything different.
LUISA on CKD:
Creatinine 1.7 upon admission--> creatinine 1.2 today
Last creatinine in December 2023 was 1.2
Received IV fluid
COVID-19:
Patient is not hypoxic
She was tested positive as outpatient although tested negative while she has been on treatment.
Completed course of Paxlovid
Parkinson's disease:
Per family she is not on medications in order to avoid side effects and her underlying comorbidities
Hypertension:
Continue Coreg 6.25 mg twice a day
IV hydralazine as needed
Hyperlipidemia:
Continue atorvastatin 40 mg p.o. nightly
History of CVA:
Continue Plavix and statins
Dementia:
Continue to monitor mental status and behavioral status
Chronic back pain with spinal stenosis:
Pain control with Tylenol as needed for now
Depression:
Continue home antidepressant
Hypokalemia/hypomagnesemia/hypocalcemia:
Replete and trend as appropriate
DVT prophylaxis:
Heparin SQ
CODE STATUS:
DNR
Anticipated Discharge: > 48 hours
Subjective/Interval History
-
Date of Service: July 10, 2024
No new complaints. Alert but pleasantly disoriented.
Objective Data
-
Labs:
Laboratory Results
07/10/24
05:22
WBC 8.1
Hgb 10.4 L
Hct 31.4 L
Plt Count 234
Sodium 143
Potassium 3.9
Chloride 108 H
Carbon Dioxide 23
BUN 20 H
Creatinine 1.2 H
Glucose 103 H
Calcium 9.2
Vital Signs:
Vital Signs
Temp Pulse Resp BP Pulse Ox
98.7 F 92 18 143/80 93
07/10/24 08:17 07/10/24 08:17 07/10/24 08:17 07/10/24 08:17 07/10/24 08:17
I&O
07/09/24 07/10/24 07/11/24
06:59 06:59 06:59
Intake Total 600 / 600 780 / 780
Balance 600 / 600 780 / 780
[2024-07-10] MEDS: PROTONIX 40 MG PO (09:39)
[2024-07-10] MEDS: KEPPRA 1000 MG IV ×2 (09:39→20:04)
[2024-07-10] MEDS: COREG 6.25 MG PO ×2 (09:39→20:03)
[2024-07-10] MEDS: HEPARIN 5000 UNITS SC ×3 (09:39→23:42)
[2024-07-10] MEDS: APRESOLINE 10 MG IV (12:21)
--- NOTE | 2024-07-10 12:44 | CM ---
Addendum entered by Guerita Campos 07/10/24 16:37:
Authorization request made via [employer]
[facility] - NPI#[id number]
Dr. Marin NPI # [id number]
CERTIFICATION # [id number]
Clinicals submitted via [employer]
PLAN: Await insurance approval
Original Note:
spoke with cyril Riggs.
Agreeable with [facility]
updated referral in [facility]
Spoke with Briseida at [facility]
CM will need to obtain insurance auth
PLAN: SNF
[2024-07-10] MEDS: ZOFRAN 4 MG IV (13:26)
--- NOTE | 2024-07-10 17:06 | PTCARENOTE ---
Patient cooperative with care today. Remote video monitor now off. Bed alarm in place and monitoring.
[2024-07-10] MEDS: STERILE WATER FOR INJECTION IV (17:07)
[2024-07-10] MEDS: LEXAPRO 10 MG PO (20:03)
[2024-07-10] MEDS: LIPITOR 40 MG PO (20:03)
[2024-07-10] MEDS: HEPARIN SC (20:04)
[2024-07-10] MEDS: PLAVIX 75 MG PO (20:06)
[2024-07-11] VITALS (8 sets, daily range): BP systolic 153–181; BP diastolic 82–98
--- NOTE | 2024-07-11 06:41 | W.PN.UPDATE ---
Update Note
Progress Note Update
Fall note:
0630 RN reports pt fall while in bathroom. PT was walked into bathroom to toilet and PCT stood outside door for privacy. Legs gave out and pt fell. found on knees. PT denied hitting head. No evidence of head injury. Pt with bruising to bilat knees
but RN states these were pre-existing bruises from previous falls. RAJAN.
Vital signs within normal limits.
--- NOTE | 2024-07-11 07:40 | W.PN.HOSP.TC ---
Today's Communication/Plan
-
IVF. Discharge planning
Assessment / Plan
Assessment / Plan
Physical exam:
General: Chronically ill
HEENT: Normocephalic, Atraumatic and Moist Mucous Membranes
Respiratory: Clear to Auscultation; Negative Wheezes, Rales or Rhonchi
Cardiac: Regular Rhythm and S1/S2
GI: Soft, Nontender and Nondistended
Musculoskeletal: No Clubbing, No Cyanosis and No Edema
Neuro: Awake, Alert and Disoriented
Psych: Calm
A/P:
Acute toxic metabolic encephalopathy:
Multifactorial but likely UTI and dehydration and COVID-19 with underlying dementia
CT of the head unremarkable
Psychiatry consult
E. coli UTI:
Finished course of antibiotics
Sepsis due to aspiration pneumonia:
Finished course of antibiotics
Diet per speech therapy
Seizure activity (known history of seizure disorder):
Continue IV Keppra 1 g every 12 hours and will switch to oral over the next [address] Vences has discussed with neurology and they did not recommend anything different.
LUISA on CKD:
Creatinine 1.7 upon admission--> creatinine 1.2-->1.3 today
Last creatinine in December 2023 was 1.2
Received IV fluid--> will rechallenge with gentle IV hydration today again repeat renal function tomorrow with mild increase in BUN and creatinine.
COVID-19:
Patient is not hypoxic
She was tested positive as outpatient although tested negative while she has been on treatment.
Completed course of Paxlovid
Parkinson's disease:
Per family she is not on medications in order to avoid side effects and her underlying comorbidities
Hypertension:
Continue Coreg 6.25 mg twice a day
IV hydralazine as needed
Hyperlipidemia:
Continue atorvastatin 40 mg p.o. nightly
History of CVA:
Continue Plavix and statins
Dementia:
Continue to monitor mental status and behavioral status
Chronic back pain with spinal stenosis:
Pain control with Tylenol as needed for now
Depression:
Continue home antidepressant
Hypokalemia/hypomagnesemia/hypocalcemia:
Replete and trend as appropriate
DVT prophylaxis:
Heparin SQ
CODE STATUS:
DNR
Anticipated Discharge: 24 - 48 hours
Subjective/Interval History
-
Date of Service: July 11, 2024
Reported events of fall. No head or hip trauma. No new complaints.
Objective Data
-
Labs:
Laboratory Results
07/11/24
06:06
WBC Pending
Hgb Pending
Hct Pending
Plt Count Pending
Sodium Pending
Potassium Pending
Chloride Pending
Carbon Dioxide Pending
BUN Pending
Creatinine Pending
Glucose Pending
Calcium Pending
Vital Signs:
Vital Signs
Temp Pulse Resp BP Pulse Ox
98 F 80 14 155/93 95
07/11/24 06:35 07/11/24 06:35 07/11/24 06:35 07/11/24 06:35 07/11/24 06:35
I&O
07/10/24 07/11/24 07/12/24
06:59 06:59 06:59
Intake Total 780 / 780 360 / 360
Balance 780 / 780 360 / 360
[2024-07-11] MEDS: KEPPRA 1000 MG IV ×2 (07:48→20:48)
[2024-07-11] MEDS: PROTONIX 40 MG PO (07:50)
[2024-07-11] MEDS: COREG 6.25 MG PO ×2 (07:50→20:53)
[2024-07-11] MEDS: HEPARIN 5000 UNITS SC ×3 (07:50→23:43)
[2024-07-11 08:28] LABS: Blood Urea Nitrogen 25 mg/dl (7-17); Calcium 9.3 mg/dl (8.4-10.2); Carbon Dioxide 23 mmol/L (22-30); Chloride 105 mmol/L (98-107); Estimated Creatinine Clearance 32 ml/min; Glucose 103 mg/dl (70-99); Potassium 4.2 mmol/L (3.5-5.1); Sodium 140 mmol/L (135-145); eGFR 43.69
[2024-07-11 08:35] LABS: % Basophils 0.7 % (0-2); % Eosinophils 3.3 % (0-6); % Immature Granulocytes 1.8 % (0-0.5); % Lymphocytes 24.4 % (20.5-51.1); % Neutrophils 58.8 % (42.2-75.2); Absolute Basophils 0.1 10^3/uL (0-0.2); Absolute Eosinophils 0.2 10^3/uL (0-0.7); Absolute Immature Granulocytes 0.1 10^3/uL (0-0.05); Absolute Lymphocytes 1.6 10^3/uL (1.2-3.4); Absolute Monocytes 0.7 10^3/uL (0.1-0.6); Hematocrit 31.3 % (37.0-47.0); Hemoglobin 10.2 g/dL (12.0-16.0); Mean Corp Hgb Conc. 32.6 g/dL (33.0-37.0); Mean Corpuscular Volume 92.1 fL (81.0-99.0); Mean Platelet Volume 11.4 fL (7.4-10.4); Nucleated Red Blood Cells % 0 %; Platelet Count 229 10^3/uL (130-400); Red Cell Dist. Width 13.3 % (11.5-14.5); White Blood Cell Count 6.7 10^3/uL (4.8-10.8)
[2024-07-11] MEDS: NSS 1000 IV (13:54)
--- NOTE | 2024-07-11 14:57 | CM ---
Reviewed the chart notes and spoke with the patient's sister at the bedside and niece Keely via telephone. IMM reviewed with Keely and placed on chart. Auth for [place] is still in a pended status in [employer]. CM continues to be available to
patient/family and is monitoring medical plan for needs at discharge.
Plan: Discharge to [facility] when auth received.
--- NOTE | 2024-07-11 16:18 | PTOTSP ---
Dysphagia Therapy
Patient presents with signs concerning for mild oral and possible pharyngeal dysphagia.
Recommend:
1. IDDSI Level 6 Soft and Bite Sized, Thin Liquids
2. Medications crushed in puree
3. Aspiration precautions: upright all meals; small bites/sips; slow rate; 1:1 assistance and supervision with PO intake, alternate sips/bites
4. SHEET PILE HAMMER OPERATOR f/u to determine if appropriate to upgrade diet and if video swallow study warranted.
[2024-07-11] MEDS: APRESOLINE 10 MG IV ×2 (16:20→23:42)
[2024-07-11] MEDS: LEXAPRO 10 MG PO (21:57)
[2024-07-11] MEDS: LIPITOR 40 MG PO (21:57)
[2024-07-11] MEDS: PLAVIX 75 MG PO (21:57)
[2024-07-12] VITALS (7 sets, daily range): BP systolic 154–178; BP diastolic 84–107
[2024-07-12] MEDS: NSS 1000 IV (01:19)
[2024-07-12 07:04] LABS: Blood Urea Nitrogen 24 mg/dl (7-17); Calcium 8.9 mg/dl (8.4-10.2); Carbon Dioxide 24 mmol/L (22-30); Chloride 108 mmol/L (98-107); Estimated Creatinine Clearance 32 ml/min; Glucose 100 mg/dl (70-99); Sodium 141 mmol/L (135-145); eGFR 43.69
--- NOTE | 2024-07-12 08:36 | W.PN.HOSP.TC ---
Today's Communication/Plan
-
Discharge planning today
Assessment / Plan
Assessment / Plan
Physical exam:
General: Chronically ill
HEENT: Normocephalic, Atraumatic and Moist Mucous Membranes
Respiratory: Clear to Auscultation; Negative Wheezes, Rales or Rhonchi
Cardiac: Regular Rhythm and S1/S2
GI: Soft, Nontender and Nondistended
Musculoskeletal: No Clubbing, No Cyanosis and No Edema
Neuro: Awake, Alert and Disoriented
Psych: Calm
A/P:
Acute toxic metabolic encephalopathy:
Multifactorial but likely UTI and dehydration and COVID-19 with [address] of the head unremarkable
Psychiatry consult
Hypertension:
Given dose of IV hydralazine +/- labetalol
Continue oral antihypertensive, Coreg
E. coli UTI:
Finished course of antibiotics
Sepsis due to aspiration pneumonia:
Finished course of antibiotics
Diet per speech therapy
Seizure activity (known history of seizure disorder):
Continue IV Keppra 1 g every 12 hours and will switch to oral over the next [address] Vences has discussed with neurology and they did not recommend anything different.
LUISA on CKD:
Creatinine 1.7 upon admission-->1.3 today
Last creatinine in December 2023 was 1.2
Received IV fluid--> stop IV fluids
COVID-19:
Patient is not hypoxic
She was tested positive as outpatient although tested negative while she has been on treatment.
Completed course of Paxlovid
Parkinson's disease:
Per family she is not on medications in order to avoid side effects and her underlying comorbidities
Hyperlipidemia:
Continue atorvastatin 40 mg p.o. nightly
History of CVA:
Continue Plavix and statins
Dementia:
Continue to monitor mental status and behavioral status
Chronic back pain with spinal stenosis:
Pain control with Tylenol as needed for now
Depression:
Continue home antidepressant
Hypokalemia/hypomagnesemia/hypocalcemia:
Replete and trend as appropriate
DVT prophylaxis:
Heparin SQ
CODE STATUS:
DNR
Anticipated Discharge: Today
Subjective/Interval History
-
Date of Service: July 12, 2024
Denies chest pain or shortness of breath. Blood pressure elevated today.
Objective Data
-
Labs:
Laboratory Results
07/12/24
06:20
Sodium 141
Potassium 4.0
Chloride 108 H
Carbon Dioxide 24
BUN 24 H
Creatinine 1.3 H
Glucose 100 H
Calcium 8.9
Vital Signs:
Vital Signs
Temp Pulse Resp BP Pulse Ox
98.5 F 91 16 178/93 93
07/12/24 08:10 07/12/24 08:10 07/12/24 08:10 07/12/24 08:10 07/12/24 08:10
I&O
07/11/24 07/12/24 07/13/24
06:59 06:59 06:59
Intake Total 360 / 360 2410 / 2410
Balance 360 / 360 2410 / 2410
--- NOTE | 2024-07-12 09:20 | CM ---
Addendum entered by Soraya Waldron RN 07/12/24 11:52:
Patient's ace Riggs informed of plan to discharge today to [facility] at 1415.
Original Note:
Auth Skill Level I [id number]; approved for 07/12-07/16; NRD 07/17 with Cathi phone ([phone]) fax ([phone]). Briseida Admission Director of [facility] informed of auth.
Plan: Discharge to [facility].
Call report to: [phone], 2nd floor
Fax report to: [phone]
Medical and transport forms on the chart.
[2024-07-12] MEDS: COREG 6.25 MG PO (09:22)
[2024-07-12] MEDS: PROTONIX 40 MG PO (09:23)
[2024-07-12] MEDS: KEPPRA 1000 MG IV (09:23)
[2024-07-12] MEDS: HEPARIN 5000 UNITS SC (09:23)
[2024-07-12] MEDS: APRESOLINE 10 MG IV (10:18)
[2024-07-12] MEDS: TRANDATE 10 MG IV (12:23)
== END 2024-07-12 14:50 | DRG 91 ==
LOC: 2 NORTH 18:02
PROVIDERS: Internal Medicine; Psychiatry & Neurology Psychiatry; ADMITTING PHYSICIAN Hospitalist; EMERGENCY PHYSICIAN Student in an Organized Health Care Education/Training Program; FAMILY PHYSICIAN Family Medicine; OTHER PHYSICIAN Psychiatry & Neurology Psychiatry
DX: G92.8 Other toxic encephalopathy (principal); A41.9 Sepsis, unspecified organism; U07.1 COVID-19; J69.0 Pneumonitis due to inhalation of food and vomit; N17.9 Acute kidney failure, unspecified; F02.C3 Dementia in other diseases classified elsewhere, severe, with mood disturbance; Z11.52 Encounter for screening for COVID-19; N18.9 Chronic kidney disease, unspecified; I12.9 Hypertensive chronic kidney disease with stage 1 through stage 4 chronic kidney disease, or unspecified chronic kidney disease; G20.A1 Parkinson's disease without dyskinesia, without mention of fluctuations; E78.5 Hyperlipidemia, unspecified; F32.A Depression, unspecified; Z66 Do not resuscitate; E87.6 Hypokalemia; R63.6 Underweight; Z68.20 Body mass index [BMI] 20.0-20.9, adult
CPT/HCPCS: 70450; 71045; 71046; 73502; 76775; 80048; 80053; 80177; 81003; 81015; 82962; 83735; 85025; 85027; 87040; 87077; 87086; 87186; 87811; 90662; 92526; 92610; 96361; 96374; 97116; 97163; 97167; 97530; 97535; 99285; G0008; J2358

== ENCOUNTER → 2024-09-01 14:01 | Outpatient (REF) | payer MEDICARE, OTHER, SELFPAY | LOC: HWWDC 14:01 | PROVIDERS: ATTENDING PHYSICIAN Family Medicine | DX: Z12.31 Encounter for screening mammogram for malignant neoplasm of breast (principal) | CPT/HCPCS: 77063; 77067 ==

== ENCOUNTER → 2024-10-16 15:00 | Outpatient (REF) | payer MEDICARE, OTHER, SELFPAY ==
[2024-10-16 15:57] LABS: % Basophils 1.2 % (0-2); % Eosinophils 2.6 % (0-6); % Immature Granulocytes 0.6 % (0-0.5); % Lymphocytes 21.9 % (20.5-51.1); % Monocytes 9.7 % (1.7-9.3); Absolute Basophils 0.1 10^3/uL (0-0.2); Absolute Eosinophils 0.2 10^3/uL (0-0.7); Absolute Lymphocytes 1.5 10^3/uL (1.2-3.4); Absolute Monocytes 0.7 10^3/uL (0.1-0.6); Absolute Neutrophils 4.4 10^3/uL (1.4-6.5); Hematocrit 36.4 % (37.0-47.0); Hemoglobin 12.2 g/dL (12.0-16.0); Mean Corp Hgb Conc. 33.5 g/dL (33.0-37.0); Mean Corpuscular Volume 92.6 fL (81.0-99.0); Mean Platelet Volume 10.4 fL (7.4-10.4); Nucleated Red Blood Cells % 0 %; Platelet Count 227 10^3/uL (130-400); Red Blood Cell Count 3.93 10^6/uL (4.20-5.40); Red Cell Dist. Width 12.1 % (11.5-14.5); White Blood Cell Count 6.9 10^3/uL (4.8-10.8)
[2024-10-16 16:18] LABS: Blood Urea Nitrogen 27 mg/dl (7-17); Calcium 9.6 mg/dl (8.4-10.2); Carbon Dioxide 24 mmol/L (22-30); Chloride 106 mmol/L (98-107); Glucose 101 mg/dl (70-99); Potassium 4.2 mmol/L (3.5-5.1); Sodium 141 mmol/L (135-145)
== END ==
LOC: REG 15:00
PROVIDERS: ATTENDING PHYSICIAN Physical Medicine & Rehabilitation
DX: I10 Essential (primary) hypertension (principal); Z86.73 Personal history of transient ischemic attack (TIA), and cerebral infarction without residual deficits; M81.0 Age-related osteoporosis without current pathological fracture; Z01.818 Encounter for other preprocedural examination
CPT/HCPCS: 36415; 80048; 85025; 93005

== ENCOUNTER 2024-10-31 10:45 | Outpatient (RCR) | payer MEDICARE, OTHER, SELFPAY ==
[2024-10-31 11:18] VITALS: BP 135/73
[2024-10-31] MEDS: PROLIA 60 MG SC (11:46)
== END 2024-11-02 08:01 | disposition home or self-care (01) ==
LOC: OID 10:45
PROVIDERS: ATTENDING PHYSICIAN Family Medicine
DX: M81.0 Age-related osteoporosis without current pathological fracture (principal); M47.816 Spondylosis without myelopathy or radiculopathy, lumbar region; M41.86 Other forms of scoliosis, lumbar region
CPT/HCPCS: 96372; J0897

== ENCOUNTER → 2024-11-29 14:03 | Outpatient (REF) | payer MEDICARE, OTHER, SELFPAY | LOC: RAD 14:03 | PROVIDERS: ATTENDING PHYSICIAN Family Medicine | DX: Z79.899 Other long term (current) drug therapy (principal); Z78.0 Asymptomatic menopausal state | CPT/HCPCS: 77080 ==

== ENCOUNTER 2024-12-22 08:21 | Outpatient (RCR) | payer MEDICARE, OTHER, SELFPAY | END 2025-01-03 05:42 | disposition home or self-care (01) | LOC: RPT 08:21 | PROVIDERS: ATTENDING PHYSICIAN Family Medicine | DX: M48.00 Spinal stenosis, site unspecified (principal); R26.89 Other abnormalities of gait and mobility; Z73.6 Limitation of activities due to disability; R26.2 Difficulty in walking, not elsewhere classified; M62.81 Muscle weakness (generalized) | CPT/HCPCS: 97163; 97530 ==

== ENCOUNTER 2024-12-27 19:18 | Emergency (ER) | payer MEDICARE, OTHER, SELFPAY ==
[2024-12-27 19:21] VITALS: BP 171/100
[2024-12-27 19:28] VITALS: BP 171/100
[2024-12-27 19:33] VITALS: BMI 20.2
[2024-12-27 19:54] LABS: % Basophils 0.4 % (0-2); % Immature Granulocytes 0.9 % (0-0.5); % Lymphocytes 15.8 % (20.5-51.1); % Monocytes 0.8 % (1.7-9.3); % Neutrophils 82.1 % (42.2-75.2); Absolute Immature Granulocytes 0.1 10^3/uL (0-0.05); Absolute Lymphocytes 0.8 10^3/uL (1.2-3.4); Absolute Neutrophils 4.4 10^3/uL (1.4-6.5); Hematocrit 38.8 % (37.0-47.0); Hemoglobin 13.1 g/dL (12.0-16.0); Mean Corp Hgb Conc. 33.8 g/dL (33.0-37.0); Mean Corpuscular Hgb 31.2 pg (27.0-31.0); Mean Corpuscular Volume 92.4 fL (81.0-99.0); Mean Platelet Volume 10.2 fL (7.4-10.4); Nucleated Red Blood Cells % 0 %; Platelet Count 273 10^3/uL (130-400); White Blood Cell Count 5.3 10^3/uL (4.8-10.8)
[2024-12-27 20:00] VITALS: BP 170/103
[2024-12-27 20:06] LABS: ALT (SGPT) 25 U/L (0-35); AST (SGOT) 23 U/L (14-36); Albumin 4.1 g/dl (3.5-5.0); Alkaline Phosphatase 65 U/L (38-126); Blood Urea Nitrogen 28 mg/dl (7-17); Calcium 9.6 mg/dl (8.4-10.2); Carbon Dioxide 21 mmol/L (22-30); Chloride 108 mmol/L (98-107); Estimated Creatinine Clearance 31 ml/min; Glucose 229 mg/dl (70-99); Potassium 4.8 mmol/L (3.5-5.1); Sodium 139 mmol/L (135-145); Total Bilirubin 0.4 mg/dl (0.2-1.3); Total Protein 6.9 g/dl (6.3-8.2); eGFR 43.42
[2024-12-27 20:40] VITALS: BP 163/106
[2024-12-27 20:51] LABS: Urine Albumin 4+ (Neg - Trace); Urine Bilirubin Negative (Negative); Urine Character Clear (Clear); Urine Color Yellow; Urine Glucose Negative (Negative); Urine Ketone Negative (Negative); Urine Leukocyte Negative (Negative); Urine Nitrite Negative (Negative); Urine Occult Blood 2+ (Negative); Urine Specific Gravity 1.015 (<1.030); Urine Urobilinogen Negative (Neg - 1+)
[2024-12-27 21:00] VITALS: BP 137/97
[2024-12-27 21:02] LABS: Urine Amorphous Seen; Urine Bacteria Many (Negative); Urine White Cell 0-2 /HPF (0-5)
--- NOTE | 2024-12-27 21:24 | ED.GENMED ---
History of Present Illness
General
Chief Complaint: Fall
Source: patient and family (sister/caregive at bedside, Jeny)
Exam Limitations: dementia (mild dementia)
Time Seen by Provider: 12/27/24 19:40
Nursing documentation reviewed up to this point in time: agreed with
History of Present Illness
History of Present Illness:
74 yo female from home, hx CVA, dementia, HTN, HLD, GERD, depression presents with sister who states she heard a thud in the kitchen and found pt on the floor on her back. States pt did not have her walker with her, bent over to pick something off
the floor and fell backwards striking back of head on floor.
10 a.m. today pt had epidural low back injection under anesthesia, home by noon, slept until 5:30 p.m. Fall occurred at 6:30 p.m. No LOC. Not anticoagulated.
Propranolol for tremors, dose increased for 20 mg BID to 60 mg HS and sister states she's been complaining of lightheadedness at times since.
Past History
Past History
ED Past Medical History: CVA (right frontal), HTN, Psychiatric (anxiety/depression) and Other (Epilepsy with status epilepticus, intellectual impairment with progression)
Social History
Tobacco: Non-smoker
Alcohol: None
Drug: None
Living: with family
Family History
Family History: Other (Epilepsy in brother)
Review of Systems
Review of Systems
Allergies reviewed?: Yes
Unable to obtain full review of systems at this time due to: dementia
Other source history: family
All Other Systems: ROS reviewed and negative except as documented in HPI and ROS
Musculoskeletal: Reports other; Denies neck pain or back pain
Skin: Reports other (large hematoma posterior scalp)
Phy Exam
Physical Exam
Physical Exam:
GENERAL: No acute distress. A&Ox3.
CONSTITUTIONAL: Afebrile.
Head: Large hematoma occipital scalp
EYES: clear, conjunctivae normal, PERRL, no hemotympanum
ENMT: moist mucus membranes, Pharynx nl
RESPIRATORY: Regular respirations, nonlabored, lungs clear.
CARDIOVASCULAR: Regular rate and rhythm, no murmurs, no rubs.
GI: Soft, nontender, normal BS
MUSCULOSKELETAL: No spinal bony tenderness. Extremities nontender. Moves with ease. Well perfused.
SKIN: Warm, dry, pale
PSYCH: Normal mood and affect. Well kept, interactive and appropriate
NEUROLOGIC: Awake, alert and oriented. Speech clear. Cranial nerves II through XII intact. Finger-nose intact. No focal neurological deficits
Course
Orders/Labs/Results
Orders:
Orders
12/27/24 19:40
CT Head W/o Iv Contrast Urgent
Comment:
Reason For Exam: fall, hematoma posterior scalp
12/27/24 19:43
Complete Blood Count/With Diff Urgent
Comprehensive Metabolic Panel Urgent
12/27/24 20:41
Urinalysis Reflex To Culture Urgent
Date Specimen was Collected: 12/27/24
Time Specimen was Collected: 19:41
Urine Microscopic Reflex Cult Urgent
Urine Culture Urgent
CARITO Source: U
Specimen Description:
Date Specimen was Collected: 12/27/24
Time Specimen was Collected: 19:41
Abnormal Lab Results
12/27/24 12/27/24
19:43 20:41
MCH 31.2 H pg
(27.0-31.0)
Abs Immat Gran (auto) 0.1 H 10^3/uL
(0-0.05)
Absolute Lymphs (auto) 0.8 L 10^3/uL
(1.2-3.4)
Absolute Monos (auto) 0.0 L 10^3/uL
(0.1-0.6)
Immature Gran % 0.9 H %
(0-0.5)
Neutrophils % 82.1 H %
(42.2-75.2)
Lymphocytes % 15.8 L %
(20.5-51.1)
Monocytes % 0.8 L %
(1.7-9.3)
Chloride 108 H mmol/L
(98-107)
Carbon Dioxide 21 L mmol/L
(22-30)
BUN 28 H mg/dl
(7-17)
Creatinine 1.3 H mg/dL
(0.6-1.0)
Glucose 229 H mg/dl
(70-99)
Ur Occult Blood Reflex 2+ A
(Negative)
Urine RBC 3-6 A /HPF
(0-2)
Urine Bacteria (Reflex) Many A
(Negative)
Urine Albumin (Reflex) 4+ A
(Neg - Trace)
12/27/24 19:43
12/27/24 19:43
Vital Signs
Initial and Last Documented VS:
Initial Vital Signs
Temp Pulse Resp BP Pulse Ox
97.6 F 105 27 171/100 95
12/27/24 19:21 12/27/24 19:21 12/27/24 19:21 12/27/24 19:21 12/27/24 19:21
Last Documented Vital Signs
Temp Pulse Resp BP Pulse Ox
97.6 F 103 12 127/107 93
12/27/24 19:21 12/27/24 22:45 12/27/24 22:45 12/27/24 22:00 12/27/24 22:45
MDM/Problems Addressed
Differential Diagnosis Includes:
Scalp hematoma, brain bleed
MDM/Problems Addressed:
74 yo female from home, hx CVA, dementia, HTN, HLD, GERD, depression presents with sister who states she heard a thud in the kitchen and found pt on the floor on her back. States pt did not have her walker with her, bent over to pick something off
the floor and fell backwards striking back of head on floor.
10 a.m. today pt had epidural low back injection under anesthesia, home by noon, slept until 5:30 p.m. Fall occurred at 6:30 p.m. No LOC. Not anticoagulated.
Propranolol for tremors, dose increased for 20 mg BID to 60 mg HS and sister states she's been complaining of lightheadedness at times since.
9:30 p.m.
GCS 15
NAD, VSS 137/97
CBC with no clinically significant abnormality
CMP with no clinically significant abnormality (consistent with her baseline CKD
UA negative
Consulted Neurosurgeon Dr. Alvarado who looked at CT scan and wants pt transferred to [facility]
Spoke with accepting MD Dr. Mikel Quintero who will get back to us after speaking with Nsg Auto Inspector
11:00 PM:
Patient remains stable
Patient transferred to [facility]
*Critical Care Note
Total Time (30-74mins, 75-104mins- exclusive of procedures): Not Applicable
ED Attending Note
-
Portions of this chart may have been created with voice recognition software.� Occasional wrong word or��sound alike� substitutions may have occurred due to the inherent limitations of voice recognition software.
Discharge Plan
Departure
Patient Disposition: [facility]
Date of Disposition: 12/27/24
Time of Disposition: 21:33
Condition: Fair
Discharge Problem:
Fall from slip, trip, or stumble, Acute subdural hematoma
Prescriptions:
No Action
pantoprazole 40 MG tablet,delayed release (DR/EC)
40 mg PO DAILY
escitalopram oxalate 10 MG tablet
10 mg PO HS
atorvastatin 40 MG tablet
40 mg PO HS
clopidogrel [Plavix] 75 mg Tablet
75 mg PO HS
therapeutic multivitamin Tablet
1 tab PO DAILY
levetiracetam 100 mg/mL solution
1,000 mg PO Q12H
amlodipine 5 mg Tablet
5 mg PO DAILY
propranolol 20 mg Tablet
20 mg PO BID
Prolia 60 mg/mL Syringe
60 mg SC [id number]
Referrals:
Dean Landa MD [Family Provider] -
Hospital Transfer
Other hospital: [facility]
I certify that the patient requires transfer: Yes
Discussed case with accepting physician: Ingrid
Reason for transfer: higher level of care
Interventions
Interventions:
*Risk Screen - Suicide Last Done: 12/27/24 19:46
*General Assessment Last Done: 12/27/24 19:46
*Neglect/Abuse Screening Last Done: 12/27/24 19:46
*ED- Fall Risk Assessment Last Done: 12/27/24 19:46
*ED COVID-19 Vaccine History Last Done: 12/27/24 19:46
*Nursing Disposition Last Done: 12/27/24 23:10
ED-Musculoskeletal Assessment Last Done: 12/27/24 19:37
ED- Neurological Assessment Last Done: 12/27/24 19:37
ED-Skin Assessment Last Done: 12/27/24 19:37
Discharge Date and Time
Discharge Date/Time: 12/27/24 23:10
Print Language: DIVEHI
[2024-12-27 22:00] VITALS: BP 127/107
== END 2024-12-27 23:10 | disposition short-term general hospital (02) ==
LOC: EMR 19:18
PROVIDERS: Registered Nurse; EMERGENCY PHYSICIAN Emergency Medicine; FAMILY PHYSICIAN Family Medicine
DX: S06.5X0A Traumatic subdural hemorrhage without loss of consciousness, initial encounter (principal); S00.03XA Contusion of scalp, initial encounter; W18.39XA Other fall on same level, initial encounter; I10 Essential (primary) hypertension; E78.5 Hyperlipidemia, unspecified; K21.9 Gastro-esophageal reflux disease without esophagitis; F32.A Depression, unspecified; R25.1 Tremor, unspecified; G40.901 Epilepsy, unspecified, not intractable, with status epilepticus; F41.9 Anxiety disorder, unspecified; F03.A4 Unspecified dementia, mild, with anxiety; F03.A3 Unspecified dementia, mild, with mood disturbance; M19.90 Unspecified osteoarthritis, unspecified site; M81.0 Age-related osteoporosis without current pathological fracture; Z86.73 Personal history of transient ischemic attack (TIA), and cerebral infarction without residual deficits
CPT/HCPCS: 99285; 70450; 80053; 81003; 81015; 85025; 87086

== ENCOUNTER → 2025-01-19 13:10 | Outpatient (REF) | payer MEDICARE, OTHER, SELFPAY | LOC: HWRAD 13:10 | PROVIDERS: ATTENDING PHYSICIAN Nurse Practitioner Family; FAMILY PHYSICIAN Family Medicine; REFERRING PHYSICIAN Specialist | DX: S06.5XAA Traumatic subdural hemorrhage with loss of consciousness status unknown, initial encounter (principal) | CPT/HCPCS: 70450 ==

== ENCOUNTER → 2025-02-02 13:55 | Outpatient (REF) | payer MEDICARE, OTHER, SELFPAY | LOC: RAD 13:55 | PROVIDERS: ATTENDING PHYSICIAN Family Medicine | DX: E04.1 Nontoxic single thyroid nodule (principal) | CPT/HCPCS: 76536 ==

== ENCOUNTER 2025-02-18 15:27 | Inpatient (IN) | payer MEDICARE, OTHER, SELFPAY ==
[2025-02-17 15:24] VITALS: BP 169/82
[2025-02-17 15:25] VITALS: BP 169/82
[2025-02-17 15:39] VITALS: BMI 23.4
[2025-02-17 15:54] LABS: Hematocrit 40.5 % (37.0-47.0); Hemoglobin 13.6 g/dL (12.0-16.0); Mean Corp Hgb Conc. 33.6 g/dL (33.0-37.0); Mean Corpuscular Volume 90.2 fL (81.0-99.0); Nucleated Red Blood Cells % 0 %; Platelet Count 249 10^3/uL (130-400); Red Cell Dist. Width 11.9 % (11.5-14.5)
[2025-02-17 16:06] LABS: Urine Character Slightly Cloudy (Clear)
[2025-02-17 16:14] LABS: Urine Squamous Cell 0-2 /LPF (Few)
[2025-02-17 16:15] LABS: ALT (SGPT) 20 U/L (0-35); AST (SGOT) 22 U/L (14-36); Albumin 4.2 g/dl (3.5-5.0); Alkaline Phosphatase 61 U/L (38-126); Blood Urea Nitrogen 27 mg/dl (7-17); Calcium 9.3 mg/dl (8.4-10.2); Carbon Dioxide 22 mmol/L (22-30); Chloride 113 mmol/L (98-107); Estimated Creatinine Clearance 26 ml/min; Glucose 95 mg/dl (70-99); Potassium 4.7 mmol/L (3.5-5.1); Sodium 143 mmol/L (135-145); Total Protein 6.9 g/dl (6.3-8.2); Urine Red Blood Cell 0-2 /HPF (0-2); eGFR 36.57
--- NOTE | 2025-02-17 18:43 | ED.GENMED ---
History of Present Illness
General
Chief Complaint: Weakness
Source: family
Exam Limitations: dementia
Time Seen by Provider: 02/17/25 18:10
History of Present Illness
History of Present Illness:
Patient is a 74-year-old female with past medical history of CVA, subdural in November 2024, dementia epilepsy hypertension GERD depression was brought by EMS. Sister at bedside reports patient has a history of dementia however has had increasing
confusion over the past several days - one week. She is sleeping a lot and not acting herself. She did fall several days ago. Today sister found her on the floor of the bathroom wiping the floor but she was right next door and did not hear her
fall. Livia reports the patient had a repeat scan 2 weeks ago to f/u on subdural .
Sister reports patient just completed home PT several days ago
Past History
Past History
ED Past Medical History: CVA (right frontal), HTN, Psychiatric (anxiety/depression) and Other (Epilepsy with status epilepticus, intellectual impairment with progression)
Social History
Tobacco: Non-smoker
Alcohol: None
Drug: None
Living: with family
Family History
Family History: Other (Epilepsy in brother)
Phy Exam
General Physical Exam
General Presentation: no apparent distress
General age: appears stated age
General Skin: warm and dry
General Habitus: elderly
General Mental: alert
General Hydration: appears well hydrated
Neurological Exam
Neurological Exam: alert and other (Confused conversation difficulty following commands however full range of motion of all extremities no focal neurological deficit)
Musculoskeletal Exam
Musculoskeletal Exam: full ROM
Skin Exam
Skin Exam: normal color and warm/dry
Psychiatric Exam
Psychiatric Exam: normal mood/affect
Course
Orders/Labs/Results
Orders:
Orders
02/17/25 Breakfast
Regular
At Your Request: Non-Participating
Does patient need a safe tray?: No
02/17/25 15:42
CMP [Comprehensive Metabolic Panel] Urgent
Complete Blood Count/With Diff Urgent
Urinalysis Reflex To Culture Urgent
Date Specimen was Collected: 02/17/25
Time Specimen was Collected: 15:41
Urine Microscopic Reflex Cult Urgent
02/17/25 17:[address] [CT Head W/o Iv Contrast] Urgent
Comment:
Reason For Exam: change in mental status
02/17/25 20:00
Chest [CR Chest - 2 Views ] Urgent
Comment:
Reason For Exam: change in ms
02/17/25 20:49
Admit/Transfer Patient As Directed
Co-Sign Provider:
Level of Care: Observation services
Assign to:: Medical/Surgical
Physician / Group: Carloz
Diagnosis: Confusion and Ambulatory Dysfunction
02/17/25 20:50
PRN Pain Medication Management As Directed
May give lesser potent ordered pain med per pt: Yes
preference::
Protocol:: Medication orders for pain may be administered in a
manner that supports deferring to patient preference
when the pt is:
- Requesting an ordered lesser potent pain medication.
Least to most potent pain medications are defined
as: acetaminophen < NSAID < tramadol < opioids
(morphine, oxycodone, hydromorphone).
- Requesting a lesser dose of the same medication IF
ORDERED.
- Requesting a less intrusive route of administration
if both routes are prescribed by the provider (PO <
IV).
02/17/25 20:51
Code Status As Directed
Resuscitation Status: Do not resuscitate
Reached after discussion with pt or family/Healthcare POA: Yes
DNR Bracelet Application ONCE
02/17/25 21:05
Add On- LAB Routine
Tests Added?: TSH w/reflex
02/17/25 21:07
TSH Reflex To Free T4 Routine
02/17/25 21:10
Add On- LAB Routine
Tests Added?: Keppra Level
02/17/25 21:41
COVID-19 Antigen Urgent
Source: Nasal Swab
02/17/25 22:17
Acetaminophen [Tylenol] 650 mg PO Q4HPRN PRN
Atorvastatin [Lipitor] 40 mg PO HS
Clopidogrel Bisulfate [Plavix] 75 mg PO HS
Escitalopram Oxalate [Lexapro] 10 mg PO HS
02/17/25 22:17
Activity As Directed
Activity Level: Out of Bed-Early Mobility
With Assistance
Pneumatic Compression Sleeves As Directed
Type: Knee high
Vital Signs As Directed
Frequency: Per unit guidelines
Ot Eval And Treat Routine
Pt Eval And Treat Routine
Activity Level: Out of Bed-Early Mobility
DX Deep Vein Thrombosis Video Routine
02/17/25 22:45
Levetiracetam [Keppra] 1,000 mg PO Q12
02/18/25 08:00
Amlodipine [Norvasc] 2.5 mg PO DAILY
Multivitamin [Theragran] 1 tablet PO DAILY
Pantoprazole [Protonix] 40 mg PO DAILY
Propranolol [Inderal] 20 mg PO BID
Abnormal Lab Results
02/17/25
15:42
Abs Immat Gran (auto) 0.1 H 10^3/uL
(0-0.05)
Absolute Monos (auto) 0.8 H 10^3/uL
(0.1-0.6)
Immature Gran % 0.6 H %
(0-0.5)
Lymphocytes % 20.4 L %
(20.5-51.1)
Chloride 113 H mmol/L
(98-107)
BUN 27 H mg/dl
(7-17)
Creatinine 1.5 H mg/dL
(0.6-1.0)
Ur Occult Blood Reflex 2+ A
(Negative)
Urine Bacteria (Reflex) Few A
(Negative)
Urine Albumin (Reflex) 4+ A
(Neg - Trace)
02/17/25 15:42
02/17/25 15:42
Vital Signs
Initial and Last Documented VS:
Initial Vital Signs
Pulse Resp BP Pulse Ox
85 20 169/82 93
02/17/25 15:24 02/17/25 15:24 02/17/25 15:24 02/17/25 15:24
Last Documented Vital Signs
Temp Pulse Resp BP Pulse Ox
98.8 F 101 24 160/100 96
02/18/25 07:09 02/18/25 07:09 02/18/25 07:09 02/18/25 11:26 02/18/25 07:09
MDM/Problems Addressed
Differential Diagnosis Includes:
Not limited to dementia, dehydration, infection intracranial hemorrhage
MDM/Problems Addressed:
As documented patient is a 74-year-old female with dementia cared for at home by sister. Brought by sister for increasing mental status supervisor records change the past week. Even though she has dementia sister reports patient has been increasingly confused
and not herself sleeping more. She does have a history of subdural hematoma in December however CAT scan negative today. She does have a history of seizures. Patient is awake alert but is confused. Sister reports no recent fever she is afebrile.
Daughter does report the patient was on the ground today and had recent falls recently. She is concerned about increasing confusion.
Pt has minimal renal insufficiency however this is not new, chest and urine are negative.
No clear source for confusion however with recent change would recommend admission for further evaluation. Patient does have a history of seizures however no obvious seizure activity noted by sister or here in the ER.
Chronic conditions affecting care:
Dementia seizures recent subdural
*Radiology
Radiology exam reviewed: radiology read reviewed
*Pulse Oximetry
SaO2: 93
Oxygen Mode of Delivery: Room air
Patient hypoxic: no
*Critical Care Note
Total Time (30-74mins, 75-104mins- exclusive of procedures): Not Applicable
ED Attending Note
-
Portions of this chart may have been created with voice recognition software.� Occasional wrong word or��sound alike� substitutions may have occurred due to the inherent limitations of voice recognition software.
Discharge Plan
Departure
Patient Disposition: Admit
Date of Disposition: 02/17/25
Time of Disposition: 20:08
Admit to: Med/Surg
Admit to doctor: hospitalist
Presentation/result/management discussed w/ accepting MD/DO: Hospitalist
Patient with high blood pressure during this ER visit?: Yes
Condition: Fair
Covid-19: Not Applicable
Discharge Problem:
Altered mental status
Interventions
Interventions:
*Risk Screen - Suicide Last Done: 02/17/25 15:25
*General Assessment Last Done: 02/17/25 15:25
*Neglect/Abuse Screening Last Done: 02/17/25 15:25
*ED- Fall Risk Assessment Last Done: 02/17/25 16:01
*ED COVID-19 Vaccine History Last Done: 02/17/25 16:01
*Nursing Disposition Last Done: 02/17/25 22:19
ED- Cardiac Assessment Last Done: 02/17/25 18:16
ED- Neurological Assessment Last Done: 02/17/25 16:01
ED- Pulmonary Assessment Last Done: 02/17/25 16:01
Discharge Date and Time
Discharge Date/Time: 02/17/25 22:19
[2025-02-17 20:00] VITALS: BP 158/88
--- NOTE | 2025-02-17 20:59 | HPS.HSE ---
Addendum entered and electronically signed by Elio Carty DO 02/17/25 22:10:
Patient seen and examined independently. Agree with findings and plan as set forth by Jeanne Tran PA-C.
Patient is a 74y F with PMH significant for CVA, frequent falls, recent SDH, seizure disorder and dementia who presents to ED for evaluation of confusion and weakness. History obtained from sister at the bedside - with whom the patient lives.
Sister notes that she found the patient on the bathroom floor today confused and unable to get up. She was unable to stand even with assistance. She seemed confused and did not answer questions appropriately. Sister noted that this was a new /
acute change. She states that patient had been doing very well following recent fall with SDH. She notes similar episodes in the past attributed to UTI; however, urine today is unremarkable. No new medications, recent cough / fever / etc.
Baseline is somewhat unclear as sister notes current status is new, but does report sleeping frequently, 2 falls in the past week and general malaise overall.
Ass:
TME - ? Acuity
Weakness / Confusion
ASCVD / Prior CVA
Recent Traumatic SDH - Resolved
Seizure Disorder
Senile Dementia
CKD III
Benign Hypertension
Anxiety / Depression
Chronic Ambulatory Dysfunction
Plan:
Observe overnight for further evaluation and treatment.
Patient is confused / disoriented with chronically slurred speech. No other focal deficits appreciated.
Urinalysis does not suggest acute infection. COVID status pending.
Follow for any fever or new / focal symptoms.
? seizure leading to current post-ictal confusion, etc?
Monitor for any new symptoms.
Original Note:
Family Physician
-
Family Physician: Dean Landa
Chief Complaint
-
Confusion and Ambulatory Dysfunction
History of Present Illness
Patient is a 74 y/o female past medical history of prior ischemic stroke, recent subdural hematoma, seizure disorder and dementia who was brought in by her sister for increased confusion and ambulatory dysfunction. History is obtained from patient's
sister at the bedside. Sister notes patient has been experiencing increased confusion over the past several days to week. Patient has been sleeping more and not acting herself. Patient has experienced a few falls over the past few days. There are
no repors of fevers.
Medical History
Past Medical History
Past Medical History: Reports Other
Additional Past Medical History:
Ischemic Stroke / Lacunar Infarcts
Subdural Hematoma - December 2024
Dementia, suspect vascular
Seizure Disorder
CKD Stage IIIB
Essential Hypertension
Hyperlipidemia
Essential Tremor
Osteoporosis
Anxiety / Depression
Past Surgical History: Reports Other
Additional Past Surgical History:
Hysterectomy
Social History
Tobacco: Non-smoker
Drug: None
Living: With Family (Sister)
Family History
Family History: Not pertinent
Allergies / Home Medications
Allergies reflects when Allergies were last updated in [employer].
Home Medications with original date entered in [employer]
Allergy/Medication List:
Allergies
Allergy/AdvReac Type Severity Reaction Status Date / Time
No Known Allergies Allergy Verified 02/17/25 20:21
Home Medications
pantoprazole 40 mg tablet,delayed release 40 mg PO DAILY Gastrointestinal issue 03/04/21
escitalopram oxalate 10 mg tablet 10 mg PO HS Depression 07/23/21
atorvastatin 40 mg tablet 40 mg PO HS High cholesterol 01/28/22
clopidogrel 75 mg tablet (Plavix) 75 mg PO HS Blood Clot Prevention/Tx 03/10/22
levetiracetam 100 mg/mL oral solution 1,000 mg PO Q12H Seizures 12/29/23
therapeutic multivitamin 1 tab PO DAILY Supplement 12/29/23
denosumab 60 mg/mL subcutaneous syringe (Prolia) 60 mg SC [id number] 07/01/24
amlodipine 5 mg tablet 2.5 mg PO DAILY 10/31/24
propranolol 20 mg tablet 20 mg PO BID 10/31/24
Review of Systems
-
Unable to obtain full review of systems at this time due to: Dementia
Physical Exam
Vital Signs
Vital Signs
Temp Pulse Resp BP Pulse Ox
98.2 F 97 18 158/88 93
02/17/25 15:25 02/17/25 20:30 02/17/25 20:45 02/17/25 20:00 02/17/25 18:45
Physical Exam
General: Well Developed and Comfortable
HEENT: Anicteric and Moist mucous membranes
Respiratory: Clear and Non Labored Respirations
Cardiac: S1/S2 and Regular Rhythm
GI: Soft and Non Tender
Musculoskeletal: No Clubbing, No Cyanosis and Other (Trace lower extremity edema)
Skin: Warm and Dry
Neuro: Awake, Alert, Oriented (Correctly identified her sister Allison) and Other (Slow to follow commands, but appropriately raises her arms, squeezes my fingers, and wiggles her feet)
Psych: Calm
Laboratory Results
-
02/17/25 15:42
02/17/25 15:42
Laboratory Results
Total Bilirubin 0.7 mg/dl (0.2-1.3) 02/17/25 15:42
AST 22 U/L (14-36) 02/17/25 15:42
ALT 20 U/L (0-35) 02/17/25 15:42
Alkaline Phosphatase 61 U/L (38-126) 02/17/25 15:42
Data Reviewed
-
CT Scan: Report Reviewed by me
Lab Data: Labs Reviewed by me
Old Records: Reviewed
Impression/Plan
-
Confusion / Weakness / Ambulatory Dysfunction, possible progression of her underlying dementia vs TME
-Urinalysis does not appear infected
-Await CXR and COVID
-Check Keppra Level
-Head without acute findings
-Consult PT/OT
Ischemic Stroke / Lacunar Infarcts
Subdural Hematoma - December 2024
-Continue Plavix - Patient was cleared to restart by Neurosurgery last week
Seizure Disorder
-Continue Keppra
CKD Stage IIIB
-Creatinine at baseline
Essential Hypertension
-Continue amlodipine
Hyperlipidemia
-Continue atorvastatin
Essential Tremor
-Continue propranolol
Anxiety / Depression
-Continue escitalopram
DVT proph: SCDs
Code Status: Full Code
[2025-02-17 22:08] LABS: COVID-19 Antigen Negative (Negative)
[2025-02-17 22:35] VITALS: BP 150/93; BMI 19.8
--- NOTE | 2025-02-17 22:53 | PTCARENOTE ---
Pt. admitted from E.D., pulled over on stretcher, awake, alert, confused, vs stable, bed alarm intact, call shepard within reach.
[2025-02-17] MEDS: PLAVIX 75 MG PO (23:32)
[2025-02-17] MEDS: KEPPRA 1000 MG PO (23:32)
[2025-02-17] MEDS: LIPITOR 40 MG PO (23:32)
[2025-02-17] MEDS: LEXAPRO 10 MG PO (23:32)
[2025-02-17] MEDS: TYLENOL 650 MG PO (23:36)
[2025-02-18 01:14] VITALS: BP 145/77
[2025-02-18 07:09] VITALS: BP 177/110
--- NOTE | 2025-02-18 07:36 | W.PN.HOSP.TC ---
Addendum entered and electronically signed by Dada Bassett DO 02/18/25 09:00:
Updated patient's sister and power of regulatory attorney, Allison Canchola. All questions answered.
Original Note:
Today's Communication/Plan
-
Increase amlodipine
PT/OT
Address goals of care
Assessment / Plan
Assessment / Plan
Gen-sleepy but arousable, not interactive
HEENT-NC, AT, anicteric, clear oral mm
Neck-supple
CV-reg, no M, +S1/S2
Lungs-clear B/L
Abd-soft, NT, ND
Ext-no edema
Musculoskeletal-no cyanosis, clubbing
Skin-warm and dry
Neuro-grossly non-focal
Psych-agitated when awoken
Acute encephalopathy -differential diagnosis of hypertensive encephalopathy versus seizure versus dementia progression. No obvious infectious etiology. CT head without acute disease. Does show moderate age-related parenchymal atrophy.
Accelerated hypertension -uncontrolled blood pressures, 177/110 this morning. Will increase amlodipine to 5 mg daily. Continue propranolol.
CKD 3B -renal function likely at baseline.
History of stroke -continue Plavix. CT head does show small chronic lacunar infarct in the right external capsule.
Recent subdural hematoma -CT brain done on admission shows resolution of SDH.
Epilepsy -continue AEDs.
Dementia, possible vascular type -CT head confirms moderate to severe subcortical, deep, and periventricular white matter low-attenuation disease compatible with changes of chronic small vessel ischemic disease.
Chronic ambulatory dysfunction
Anxiety/depression
Osteoporosis
Hyperlipidemia
DNR
PT/OT
I will call the power of regulatory attorney later this morning to discuss goals of care.
Anticipated Discharge: Within 24 hours
Subjective/Interval History
-
Date of Service: February 18, 2025
Patient seen and examined. Confused, moaning, not interacting. Keeps her eyes closed. Cries out when I try to examine her.
Objective Data
-
Vital Signs:
Vital Signs
Temp Pulse Resp BP Pulse Ox
98.8 F 101 24 177/110 96
02/18/25 07:09 02/18/25 07:09 02/18/25 07:09 02/18/25 07:09 02/18/25 07:09
I&O
02/17/25 02/18/25 02/19/25
06:59 06:59 06:59
Intake Total 240 / 240
Balance 240 / 240
Review of Systems
-
Unable to obtain full review of systems at this time due to: Dementia
History Source: Patient
All other systems: Reviewed and negative
[2025-02-18] MEDS: NORVASC PO ×2 (08:34→08:56)
[2025-02-18] MEDS: TYLENOL PO (08:35)
[2025-02-18] MEDS: KEPPRA PO ×2 (08:36→08:57)
[2025-02-18] MEDS: INDERAL PO ×2 (08:36→08:57)
[2025-02-18] MEDS: KEPPRA 1000 MG IV ×2 (11:10→20:46)
[2025-02-18 11:26] VITALS: BP 160/100
[2025-02-18 12:04] LABS: Hepatitis C Antibody Negative (Negative)
--- NOTE | 2025-02-18 13:13 | CM ---
CM reviewed chart, call to patients , Allison POWERS, to complete initial assessment. Patient resides with sister in a mobile home, one level, about 5 steps to enter. Patient just completed VN, PT/OT with [facility], is set up to start outpatient
therapy 03/09 at ambulatory center. History SNF at [facility]. Patient has a walker at home, sister reports patient will be getting a brace for her leg. PCP Dean Landa, pharmacy [facility]. PT/OT held due to high BP. Allison
agreeable to short term rehab if needed, is not looking for LTC. DONALDSON form reviewed, placed in chart. CM will continue to follow for all discharge planning needs.
Plan; home with sister with [facility], watch for PT/OT evals
[2025-02-18] MEDS: OFIRMEV 100 IV (13:22)
[2025-02-18] MEDS: LR 1000 IV ×2 (13:24→23:50)
[2025-02-18 15:04] VITALS: BP 165/103
[2025-02-18] MEDS: NORVASC 5 MG PO (15:39)
--- NOTE | 2025-02-18 16:04 | PTCARENOTE ---
0800 When attempted to give pt po meds, pt spit out. Crush meds with applesauce, pt continue to spit out meds. BP 177/110, DR. Bassett notified.
Noted pt confuse, non verbal, pt becomes upset and shouts out with turning with staff, continue to monitor pt closely.
--- NOTE | 2025-02-18 16:08 | PTCARENOTE ---
1530 Pt's sister and family at bedside and mention pt likes chocolate pudding. Noted BP 165/103, pt able to take norvasc 5 mg po with pudding.
Pt's sister mention at bedside when pt was found on floor at home, pt was down on both knees. Noted slight bruising on both knees.
notified and ordered bilateral knee x-rays. Sent pt to x-ray via stretcher, continue to monitor pt closely.
[2025-02-18 18:03] VITALS: BP 150/108
--- NOTE | 2025-02-18 18:40 | PTCARENOTE ---
Patient did not void during shift(7AM-7PM). Nurse was notified.
[2025-02-18] MEDS: INDERAL 20 MG PO (20:42)
[2025-02-18] MEDS: HEPARIN 5000 UNITS SC (20:52)
[2025-02-18] MEDS: LEXAPRO PO (20:55)
[2025-02-18] MEDS: PLAVIX PO (20:56)
[2025-02-18] MEDS: LIPITOR PO (20:56)
--- NOTE | 2025-02-18 23:51 | PTCARENOTE ---
Addendum entered by Mayelin Juan RN 02/19/25 00:06:
One time dose IV lopressor 2.5 mg ordered.
Original Note:
Patient's manual BP 170/118. Provider notified. Waiting for PRN IV antihypertensive medication order.
[2025-02-18 23:56] VITALS: BP 178/86
[2025-02-19] VITALS (8 sets, daily range): BP systolic 124–172; BP diastolic 68–106; PULSE 110–111; O2SAT 91
[2025-02-19] MEDS: LOPRESSOR 2.5 MG IV (00:17)
--- NOTE | 2025-02-19 04:30 | PTCARENOTE ---
Unable to assess patient's orientation due to mentation and state of arousal. Patient lethargic, not following commands. PERRLA. RAJAN with generalized weakness. Nonverbal indicators of pain noted when moving patient and throughout other aspects of
care. BPs high throughout the night. Provider made aware. x 1 dose IV Lopressor ordered and administered. Per provider, patient's higher dose of antihypertensive due in the morning. Q 2 hour turns. Patient incontinent of bowel and bladder overnight.
Patient on seizure precautions. Hourly rounding performed. Bed in lowest position. Call shepard and personal belongings within reach.
[2025-02-19 08:15] LABS: Blood Urea Nitrogen 22 mg/dl (7-17); Calcium 8.8 mg/dl (8.4-10.2); Carbon Dioxide 20 mmol/L (22-30); Chloride 118 mmol/L (98-107); Estimated Creatinine Clearance 30 ml/min; Glucose 103 mg/dl (70-99); Potassium 3.9 mmol/L (3.5-5.1); Sodium 145 mmol/L (135-145); eGFR 43.42
[2025-02-19] MEDS: KEPPRA 1000 MG IV ×2 (08:29→21:00)
[2025-02-19] MEDS: HEPARIN 5000 UNITS SC ×2 (08:30→21:00)
[2025-02-19] MEDS: INDERAL 20 MG PO (08:31)
[2025-02-19] MEDS: NORVASC 5 MG PO (08:32)
--- NOTE | 2025-02-19 10:42 | CM ---
Chart reviewed. Therapy rec SNF at d/c. Patient currently confused at baseline.
Spoke w/ patient's sister, Allison, who explained that patient is independent w/ her walker at home. Patient was prev talking and eating up until she was admitted to [facility]. Allison is agreeable to SNF for patient, prefer to be in or close to [place].
Agreeable to referrals to [facility] Allison is expecting to speak w/ hospitalist today, aware that a brain MRI has been ordered for patient
Plan: SNF
--- NOTE | 2025-02-19 12:46 | W.PN.HOSP.TC ---
Today's Communication/Plan
-
Spot EEG
MRI neg
BP Control
Speech eval
RPR, b12
Assessment / Plan
Assessment / Plan
Gen-sleepy but arousable, not interactive
HEENT-NC, AT, anicteric, clear oral mm
Neck-supple
CV-reg, no M, +S1/S2
Lungs-clear B/L
Abd-soft, NT, ND
Ext-no edema
Musculoskeletal-no cyanosis, clubbing
Skin-warm and dry
Neuro-grossly non-focal
Psych-agitated when awoken
Acute encephalopathy -MRI with neg for acute path. Most likely worsening vascular dementia. Does show moderate age-related parenchymal atrophy. Speech eval; tsh WNL; f/u b12, RPR; Spot EEG
Accelerated hypertension -difficult to give many meds as patient refuses. uncontrolled blood pressures. Will increase amlodipine to 5 mg daily. Continue propranolol.
CKD 3B -renal function likely at baseline.
History of stroke -continue Plavix. chronic lacunar infarct in the right external capsule and left frontoparietal
Recent subdural hematoma - resolution of SDH.
Epilepsy -continue AEDs. F/u Spot EEG
Dementia, possible vascular type-see plan above; most likely vascular
Chronic ambulatory dysfunction
Anxiety/depression
Osteoporosis
Hyperlipidemia
DNR
PT/OT
Total time spent on today's encounter was 50 minutes which included time spent in counseling the patient/family regarding diagnosis and treatment plan as listed above, goals of care, and symptom management. Case was discussed with nursing staff,
specialists, and care coordinators/case management. All labs and imaging personally reviewed by me. Remainder the time spent in detailed review of previous records, lab data, imaging, and other medical provider documentation.
Anticipated Discharge: 24 - 48 hours
Subjective/Interval History
-
Date of Service: February 19, 2025
on acute change, maintaining airway - lethargic
Objective Data
-
Labs:
Laboratory Results
02/19/25
07:03
Sodium 145
Potassium 3.9
Chloride 118 H
Carbon Dioxide 20 L
BUN 22 H
Creatinine 1.3 H
Glucose 103 H
Calcium 8.8
Vital Signs:
Vital Signs
Temp Pulse Resp BP Pulse Ox
98.3 F 72 16 172/100 96
02/19/25 07:00 02/19/25 08:15 02/19/25 07:00 02/19/25 08:15 02/19/25 07:00
I&O
02/18/25 02/19/25 02/20/25
06:59 06:59 06:59
Intake Total 240 / 240 1404 / 1404
Balance 240 / 240 1404 / 1404
Review of Systems
-
History Source: Patient
All other systems: Not reviewed unless documented
Physical Exam
-
General: Well Developed, Comfortable and Appears Chronically Ill
HEENT: Normocephalic, Atraumatic, Nose Appears Normal and Ears Appear Normal
Respiratory: Clear to Auscultation and Non Labored Respirations; Negative Accessory Resp Muscle Use
Cardiac: Regular Rhythm and S1/S2
GI: Soft, Nontender, Nondistended and Normal Bowel Sounds
Skin: Warm and Dry
Neuro: Awake
Psych: Calm and Apparent Dementia
Data Reviewed
-
MRI: Report Reviewed by me
Labs: Labs Reviewed by me
[2025-02-19 13:39] LABS: Ammonia < 9 umol/L (9-30)
--- NOTE | 2025-02-19 13:41 | PTOTSP ---
Dysphagia Evaluation
Patient presents with signs concerning for oral > pharyngeal dysphagia. She has a known history of dysphagia (03/12/2021 moderate oral, mild pharyngal dysphagia; Dysphagia 2 diet with thin liquids recommended). Dysphagia risk factors include: acute
encephalopathy, chronic CVA, recent SDH, dementia. Risk factors for aspiration PNA developing include dependence for feeding/oral care and limited ambulation - though no signs concerning for aspiration complications present at this time. Patient is
not at her baseline re: mentation, self-feeding, communication, or swallowing per discussion with her sister/caregiver.
Recommend:
1. Downgrade to IDDSI Level 5 Minced/moist and thin liquids
2. Full supervision and assistance
3. Upright to 90 degrees, PO only when awake/alert/accepting, small sips/bites, slow rate, alternate solids/liquids, check for pocketing, oral care after meals
4. Oral care 3x daily
5. Dysphagia tx at the acute care level for caregiver education, to determine clinical tolerance of diet and if/when diet advancement appropriate
[2025-02-19] MEDS: ATIVAN 2 MG IV (15:41)
--- NOTE | 2025-02-19 15:44 | EEG.RPT ---
Electroencephalogram Report
Recording
Date of EE02/19/25
Type of EEG: Routine
Length of EEG recordin minutes
Done with Video Recording: Yes
Patient Status: Inpatient
Recording Conditions: Awake and Drowsy
Hyperventilation Performed: No
Photic Stimulation Performed: Yes
Report
LESS THAN 1 HOUR EEG REPORT
LESS THAN 1 HOUR EEG INTERPRETATION:
Severely abnormal EEG for age due to bihemispheric frontally predominant triphasic waves.
CLINICAL CORRELATION:
This study was suggestive of continuous generalized subclinical seizures consistent with status epilepticus. This is similar to the patient's experience in 2020 with additional EEG showing diffuse slowing, not the changes mentioned previously.
Immediate clinical correlation is advised.
METHODS:
A 21 channel digitized electroencephalogram (EEG) was performed in the Clinical Neurophysiology Laboratory. The 10/20 international system of electrode placement was used with ECG and lateral/vertical eye movements recorded.
ELECTROENCEPHALOGRAPHER IMPRESSION(S):
Quality of study: Good
Background
Maximum: theta, poorly maintained
Anterior-posterior gradient unremarkable
Sleep
Drowsiness demonstrated by attenuation of the background rhythm
Photic Stimulation
Failed to activate the record
ECG
Normal sinus rhythm
ABNORMAL EEG Activity
Continuous demonstrated high amplitude frontally predominant, variable in appearance, at times generalizing, triphasic waves
ECG
Normal sinus rhythm
[2025-02-19] MEDS: VIMPAT 100 MG IV ×3 (15:53→19:06)
--- NOTE | 2025-02-19 15:54 | CON.NEURO ---
Addendum entered and electronically signed by Jovanny Winter MD 02/19/25 17:31:
Studies reviewed.
I have personally examined the patient. I reviewed and agree with the VP DATA's Note.
My addenda:
Lethargic, not interactive. No acute distress.
Speech: Mute.
Does not follow any requests. No tremor.
Negative doll's eyes.
Facial movements full and symmetric. Hearing intact to normal conversational volume.
Minimal spontaneous limb movements
Neck: full ROM.
Chest: no dyspnea
Heart: no JVD
Ext: (-) Clubbing, (-) Cyanosis, (-) Edema
IMPRESSIONS/RECOMMENDATIONS:
Abrupt onset of change in mental status with prior history of epilepsy, dementia, stroke, subdural hematoma
EEG suggestive of a prior pattern recurrent in the form of triphasic waves which are generalized and at a rhythm of 2.5 Hz
Start continuous EEG monitoring
Add lacosamide with loading dose of 100 mg followed by 100 mg every 12 hours
I agree with provision of lorazepam 2 mg, provided already
Will consider additional medications based on continuous EEG monitoring
Will continue to follow patient.
Original Note:
Neuro Assessment/Plan
Assessment
Patient is a 74-year-old female with past medical history of CVA, subdural in November 2024, dementia, epilepsy, hypertension, GERD, depression presented to [facility] on 02/17/2025 due to increasing confusion over the past several days.
Brain MRI 02/19/2025: No acute intracranial abnormality. Moderate age-related parenchymal atrophy. T2/FLAIR hyperintense signal in the white matter of the bilateral cerebral hemispheres, most compatible with moderate chronic microangiopathic
ischemia. Chronic lacunar infarcts of the right external capsule and the left frontoparietal white matter. No mass effect, midline shift, or extra axial collection. No abnormal signal intensity on diffusion-weighted images. Scattered small foci of
susceptibility redemonstrated with greatest involvement of the bilateral cerebellar hemispheres, and to a lesser degree the cerebrum and basal ganglia, for which amyloid angiopathy or hypertensive microangiopathy remain considerations.
EEG 02/19/2025: bihemispheric frontally predominant triphasic waves. This study was suggestive of continuous generalized subclinical seizures consistent with status epilepticus.
Head CT 02/17/2025: No acute intracranial abnormality.
Head CT 01/19/2025:
1. Subdural hematoma along the falx, and along the right tentorium have improved compared to 12/27/2024. No acute intracranial hemorrhage is appreciated.
2. Left parietal scalp soft tissue hematoma has resolved.
3. Atrophy, small vessel ischemic change, and chronic lacunar infarct as detailed above.
Head CT 12/27/2024:
Small subdural hematomas involving the falx and the right tentorium, as described.
No evidence for subarachnoid hemorrhage or parenchymal hematoma. There is no midline shift.
Left posterolateral scalp hematoma. No evidence for calvarial fracture.
Plan
Impressions: Status epilepticus as evidence by EEG
-seizure precautions
-continuous EEG
-continue Levetiracetam 1,000 mg BID
-start Lacosamide 100 mg BID
-continue atorvastatin and clopidogrel for secondary stroke prevention when able to take po
-DVT prophylaxis
-PT/OT/ST evaluations
Consultation
Order
Date of Consultation: 02/19/25
Requesting Provider: hospitalist
Reason for Consult: seizure
Subjective/Objective
Subjective Data
Date of Service: February 19, 2025
Adapted from neurology note from Dr. Benitez in 01/2022:
'CONSULTING PHYSICIAN: Rashid Benitez
REFERRING PHYSICIAN: Cherise Mckeon
DICTATED BY: Rashid Benitez
DATE/TIME OF REQUEST: 01/28/22
DATE/TIME OF CONSULTATION: 01/28/22
Reason for Consultation: Encephalopathy
History of Present Illness: Patient is a 71-year-old woman with a past medical history of epilepsy, ischemic stroke, dementia presenting to the hospital because of change in mental status and functional status over about the past 2 weeks. Patient
lives with her sister for the past 2-1/2 decades. She notes that at baseline patient will have conversation and obey simple commands but she generally has significant short-term memory loss asking repeated questions, usually recognizes family
members, will sometimes know the president but not always the exact date. Has been walking with a walker for about the past couple of weeks. Her sister provides most of the history. Patient seemed to have a decline over the bout the past 2 weeks
with her mental status not being at all normal and also significantly changed ambulatory dysfunction. No facial asymmetry or unilateral weakness of the arms or legs has been seen.
Patient has been seen in the past by my partners here at the hospital and is followed by Dr. Neal in of the [place] neurology department. She had decrease in Keppra from 1000 mg to 750 mg twice daily and she takes a liquid form of this.
Previous antiseizure medications include lacosamide and valproic acid. Daughter reports that she had had a stroke while compliant with aspirin and was switched to clopidogrel the stroke did not have any obvious focal deficits and was found on
imaging. Patient had had previous EEG studies in February 2021 significant for abnormalities and suspected nonconvulsive seizures.
No recent vomiting diarrhea coughing fever infectious contacts or rash.'
Patient is a 74-year-old female with past medical history of CVA, subdural in November 2024, dementia, epilepsy, hypertension, GERD, depression presented to [facility] on 02/17/2025 due to increasing confusion over the past several days. History and exam
limited due to patient being sedated, just received lorazepam for agitation. Patient reportedly had a fall several days ago. She lives with with sister. On the day of admission, her sister found her on the floor of the bathroom wiping the floor but
did not hear her fall. She seemed confused and did not answer questions appropriately. She states that patient had been doing very well following recent fall with SDH. She notes similar episodes in the past attributed to UTI; however, urine today
is unremarkable. No new medications, recent cough / fever / etc. Baseline is somewhat unclear as sister notes current status is new, but does report sleeping frequently, 2 falls in the past week and general malaise overall.
In ED, head CT with no acute intracranial abnormality. Brain MRI today showed no acute intracranial abnormality. Currently taking Levetiracetam 1,000 mg BID. Last reported seizure was in February 2021. Labs so far unrevealing.
Objective Data
Vital Signs
Temp Pulse Resp BP Pulse Ox
98.3 F 72 16 172/100 96
02/19/25 07:00 02/19/25 08:15 02/19/25 07:00 02/19/25 08:15 02/19/25 07:00
Lab Results
02/17/25 15:42
02/19/25 07:03
Sodium 145 mmol/L (135-145) 02/19/25 07:03
Potassium 3.9 mmol/L (3.5-5.1) 02/19/25 07:03
BUN 22 mg/dl (7-17) H 02/19/25 07:03
Glucose 103 mg/dl (70-99) H 02/19/25 07:03
Calcium 8.8 mg/dl (8.4-10.2) 02/19/25 07:03
Patient Allergies
No Known Allergies Allergy (Verified 02/17/25 20:21)
Review of Systems
-
Unable to obtain full review of systems at this time due to: Dementia and Acuity
Physical Exam
-
General: Comfortable and Appears Stated Age
HEENT: Normocephalic, Atraumatic and Anicteric
Respiratory: No Dyspnea
Cardiac: No JVD
GI: Non-distended
Skin: Unremarkable
Extremities: No Clubbing, No Cyanosis and No Edema
Psych: Unable to Assess (sedated)
Extended Neurological Exam
Mood & Affect: Unable to Assess (sedated)
Attention Span & Concentration: Unable to assess (sedated)
Memory: Unable to Assess
Speech: Unable to Assess
Deep Tendon Reflexes: Clonus (LLE)
Data Reviewed
-
MRI Head: Report Reviewed and Image Reviewed
EEG: Report Reviewed
Labs: Report Reviewed
Reviewed with: Physician and Nurse
Old Records: Summarized
Medications
-
Active Medications
Generic Name Dose Route Start Last Admin
Trade Name Freq PRN Reason Stop Dose Admin
Acetaminophen 650 mg 02/17/25 22:17 02/17/25 23:36
Acetaminophen 325 Mg Tablet PO 03/17/25 22:16 650 mg
Q4HPRN PRN Administration
mild pain/ fever>100.5F
Amlodipine Besylate 5 mg 02/18/25 08:00 02/19/25 08:32
Amlodipine 5 Mg Tablet PO 03/18/25 07:59 5 mg
DAILY MARILIA Administration
Atorvastatin Calcium 40 mg 02/17/25 22:17 02/18/25 20:56
Atorvastatin (Lipitor) 40 Mg Tablet PO 03/17/25 22:16 Not Given
HS MARILIA
Ceftriaxone Sodium 1,000 mg 02/19/25 16:00
Ceftriaxone 1000 Mg / 10 Ml Vial IV
Q24H MARILIA
Clopidogrel Bisulfate 75 mg 02/17/25 22:17 02/18/25 20:56
Clopidogrel 75 Mg Tablet PO 03/17/25 22:16 Not Given
HS MARILIA
Escitalopram Oxalate 10 mg 02/17/25 22:17 02/18/25 20:55
Escitalopram 10 Mg Tablet PO 03/17/25 22:16 Not Given
HS MARILIA
Heparin Sodium 5,000 units 02/18/25 20:00 02/19/25 08:30
Heparin 5,000 Units/Ml 1 Ml Vial SC 03/18/25 19:59 5,000 units
Q12 MARILIA Administration
Lacosamide 100 mg 02/19/25 16:00
Lacosamide (10 Mg/Ml) 200 Mg/20 Ml Vial IV 03/05/25 15:59
Q12H MARILIA
Levetiracetam 1,000 mg 02/18/25 10:00 02/19/25 08:29
Levetiracetam (100 Mg/Ml) 500 Mg/5 Ml Vial IV 03/18/25 09:59 1,000 mg
Q12 MARILIA Administration
Multivitamins Therapeutic 1 tablet 02/18/25 08:00 02/19/25 08:42
Multivitamin Tablet PO 03/18/25 07:59 Not Given
DAILY MARILIA
Pantoprazole Sodium 40 mg 02/18/25 08:00 02/19/25 08:42
Pantoprazole 40 Mg Delayed Release Tablet PO 03/18/25 07:59 Not Given
DAILY MARILIA
Propranolol HCl 20 mg 02/18/25 08:00 02/19/25 08:31
Propranolol 20 Mg Regular Release Tablet PO 03/18/25 07:59 20 mg
BID MARILIA Administration
Sodium Chloride 0 flush 02/17/25 23:00
Sodium Chloride 0.9% (Flush) Syringe IV 03/17/25 22:59
PER PROTOCOL MARILIA
Sterile Water 10 ml 02/19/25 16:00
Sterile Water For Injection 10 Ml Vial IV 03/19/25 15:59
Q24H MARILIA
Home Medications
�Medication �Instructions �Recorded
pantoprazole 40 mg tablet,delayed 40 mg PO DAILY Gastrointestinal 03/04/21
release issue
escitalopram oxalate 10 mg tablet 10 mg PO HS Depression 07/23/21
atorvastatin 40 mg tablet 40 mg PO HS High cholesterol 01/28/22
clopidogrel 75 mg tablet (Plavix) 75 mg PO HS Blood Clot 03/10/22
Prevention/Tx
levetiracetam 100 mg/mL oral 1,000 mg PO Q12H Seizures 12/29/23
solution
therapeutic multivitamin 1 tab PO DAILY Supplement 12/29/23
denosumab 60 mg/mL subcutaneous 60 mg SC [id number] Bone-Modifying 07/01/24
syringe (Prolia) Agent
amlodipine 5 mg tablet 2.5 mg PO DAILY Blood Pressure 10/31/24
propranolol 20 mg tablet 20 mg PO BID Blood Pressure 10/31/24
Past History
Past History
ED Past Medical History: CVA (right frontal), HTN, Psychiatric (anxiety/depression) and Other (Epilepsy with status epilepticus, intellectual impairment with progression)
Family/Social History
Tobacco: Non-smoker
Alcohol: None
Drug: None
Living: with family
Family History: Other (Epilepsy in brother)
[2025-02-19] MEDS: NSS (PRESERVATIVE FREE) 1 ML IV (15:55)
[2025-02-19 17:34] LABS: Urine Character Clear (Clear)
[2025-02-19] MEDS: STERILE WATER FOR INJECTION 10 ML IV (17:58)
[2025-02-19] MEDS: ROCEPHIN 1000 MG IV (17:59)
[2025-02-19 19:11] LABS: Urine Red Blood Cell 0-2 /HPF (0-2)
[2025-02-19 19:43] LABS: Vitamin B12 591 pg/ml (239-931)
--- NOTE | 2025-02-19 19:50 | PTCARENOTE ---
While PCT was obtaining vital signs, patient began foaming at the mouth. PCT notified this RN. When RN walked in, patient unable to tolerate secretions and posturing. Patient not responsive to commands, pupils fixed and dilated. Suction performed to
protect airway. Patient on continuous EEG but, no one from monitoring called to notify this RN. BP elevated at 199/127. NSR on telemetry. Provider notified and up to the bedside to evaluate.
--- NOTE | 2025-02-19 20:18 | W.PN.UPDATE ---
Update Note
Progress Note Update
Asked to see patient s/p seizure activity, when evaluated patient is postdictal, no seizure activity at this time. Per RN, she walked into room and she was actively seizing, lasted approximately one minute. Patient was foaming at the mouth per RN.
Concern for airway protection. TT Dr. Winter, Neurology, who had seen patient today, to updated on events. He is agreeable to move patient to IMU, he is aware of patient being on continuous EEG and agrees that patient care, comes before testing.
Dr. Winter added Valproic acid with loading dose.
PRN Ativan 2 mg IV ordered for seizure activity >5 minutes.
[2025-02-19] MEDS: INDERAL PO (20:44)
[2025-02-19] MEDS: LEXAPRO PO (20:44)
[2025-02-19] MEDS: LIPITOR PO (20:44)
[2025-02-19] MEDS: PLAVIX PO (20:45)
--- NOTE | 2025-02-19 20:58 | PTCARENOTE ---
This RN did not administer oral medications due to patient's arousal and LOC.
[2025-02-19] MEDS: DEPACON 70 MG IV (21:38)
--- NOTE | 2025-02-19 22:10 | PTCARENOTE ---
Patient transferred to IMU for higher level of care. This RN called sister Allison, and left a VM.
[2025-02-20] VITALS (18 sets, daily range): BP systolic 135–200; BP diastolic 81–105
--- NOTE | 2025-02-20 02:20 | PTCARENOTE ---
Received verbal report from JANIA Dick. Pt arrived to floor via bed with Depacon infusing and EEG connected to patient. EEG monitor off when pt arrived to floor, turned back on once machine plugged in. Unable to restart EEG monitor application at
this time. No systems test technician available until the morning. CLAUDIA Grant and Dr. Winter aware.
Pt lethargic and responds only to deep pain. Seizure precautions in place. Pt NSR on monitor, hr 90s. Pt's SpO2 dropped from 94% to 88%. Pt placed on 2L NC and SpO2 is now 95%. Hygiene completed. Pt resting in bed with bed alarm on.
[2025-02-20] MEDS: VIMPAT 100 MG IV ×2 (04:09→10:34)
[2025-02-20 04:48] LABS: Hematocrit 36.8 % (37.0-47.0); Hemoglobin 12.3 g/dL (12.0-16.0); Mean Corp Hgb Conc. 33.4 g/dL (33.0-37.0); Mean Corpuscular Volume 90.2 fL (81.0-99.0); Platelet Count 244 10^3/uL (130-400); Red Cell Dist. Width 11.8 % (11.5-14.5)
[2025-02-20 05:08] LABS: ALT (SGPT) 13 U/L (0-35); AST (SGOT) 16 U/L (14-36); Albumin 3.7 g/dl (3.5-5.0); Alkaline Phosphatase 59 U/L (38-126); Blood Urea Nitrogen 23 mg/dl (7-17); Calcium 8.5 mg/dl (8.4-10.2); Carbon Dioxide 22 mmol/L (22-30); Chloride 118 mmol/L (98-107); Estimated Creatinine Clearance 28 ml/min; Glucose 128 mg/dl (70-99); Potassium 3.8 mmol/L (3.5-5.1); Sodium 148 mmol/L (135-145); Total Protein 6.1 g/dl (6.3-8.2); eGFR 39.73
--- NOTE | 2025-02-20 08:55 | W.PN.UPDATE ---
Update Note
Progress Note Update
Engaged with Allison POWERS regarding GOC. Desires to speak to daughter first and will be here in appx an hour to have decision. Explained urgency of the matter, and she verbalizes understanding.
[2025-02-20] MEDS: INDERAL PO ×2 (09:03→20:44)
[2025-02-20] MEDS: HEPARIN 5000 UNITS SC ×2 (09:03→21:07)
[2025-02-20] MEDS: NORVASC PO (09:03)
[2025-02-20] MEDS: KEPPRA 1000 MG IV (09:04)
[2025-02-20] MEDS: D5W 1000 IV (10:05)
[2025-02-20] MEDS: DEPACON 57.5 MG IV ×2 (10:05→21:07)
[2025-02-20] MEDS: PHENOBARBITAL 65 MG IV (10:42)
[2025-02-20] MEDS: KEPPRA 500 MG IV (10:45)
--- NOTE | 2025-02-20 13:53 | W.PN.HOSP.TC ---
Today's Communication/Plan
-
Trial Phenobarb
cEEG
d5w
GOC
Assessment / Plan
Assessment / Plan
Gen-sleepy but arousable, not interactive
HEENT-NC, AT, anicteric, clear oral mm
Neck-supple
CV-reg, no M, +S1/S2
Lungs-clear B/L
Abd-soft, NT, ND
Ext-no edema
Musculoskeletal-no cyanosis, clubbing
Skin-warm and dry
Neuro-grossly non-focal
Psych-agitated when awoken
Acute encephalopathy
Status Epilepticus - noted on spot EEG
-Cont EEG
-Continuing despite Vimpat, ativan, depakote
-Trial phenobarb
- If fails phenobarb, options remain mechanical ventilation and propfol/versed v comfort
-Neuro on board
-MRI with neg for acute path.
-tsh WNL;
#hypernatremia
-decreased po intake
-start d5w
Accelerated hypertension -difficult to give many meds as patient refuses. uncontrolled blood pressures. Will increase amlodipine to 5 mg daily. Continue propranolol. Stat IV hydral PRN
CKD 3B -renal function likely at baseline.
History of stroke -continue Plavix. chronic lacunar infarct in the right external capsule and left frontoparietal
Recent subdural hematoma - resolution of SDH.
Epilepsy -continue AEDs. F/u Spot EEG
Dementia, possible vascular type-see plan above; most likely vascular
Chronic ambulatory dysfunction
Anxiety/depression
Osteoporosis
Hyperlipidemia
DNR
PT/OT
Total time spent on today's encounter was 51 minutes which included time spent in counseling the patient/family regarding diagnosis and treatment plan as listed above, goals of care, and symptom management. Case was discussed with nursing staff,
specialists, and care coordinators/case management. All labs and imaging personally reviewed by me. Remainder the time spent in detailed review of previous records, lab data, imaging, and other medical provider documentation.
GOC: may opt for comfort if phenobarb fails to break status
Anticipated Discharge: > 48 hours
Subjective/Interval History
-
Date of Service: February 20, 2025
still in status despite vimpat
Objective Data
-
Labs:
Laboratory Results
02/20/25
04:03
WBC 11.0 H
Hgb 12.3
Hct 36.8 L
Plt Count 244
Sodium 148 H
Potassium 3.8
Chloride 118 H
Carbon Dioxide 22
BUN 23 H
Creatinine 1.4 H
Glucose 128 H
Calcium 8.5
Total Bilirubin 0.4
AST 16
ALT 13
Alkaline Phosphatase 59
Vital Signs:
Vital Signs
Temp Pulse Resp BP Pulse Ox
99.0 F 80 15 176/88 94
02/20/25 12:00 02/20/25 06:29 02/20/25 06:29 02/20/25 06:29 02/20/25 06:29
I&O
02/19/25 02/20/25 02/21/25
06:59 06:59 06:59
Intake Total 1404 / 1404 50 / 50
Balance 1404 / 1404 50 / 50
Review of Systems
-
History Source: Patient
All other systems: Not reviewed unless documented
Physical Exam
-
General: Well Developed, Comfortable and Appears Chronically Ill
HEENT: Normocephalic, Atraumatic, Nose Appears Normal and Ears Appear Normal
Respiratory: Clear to Auscultation and Non Labored Respirations; Negative Accessory Resp Muscle Use
Cardiac: Regular Rhythm and S1/S2
GI: Soft, Nontender, Nondistended and Normal Bowel Sounds
Skin: Warm and Dry
Neuro: Awake
Psych: Calm and Apparent Dementia
[2025-02-20] MEDS: PHENOBARBITAL 32.5 MG IV ×2 (15:12→22:51)
[2025-02-20 15:21] LABS: Syphilis/T. pallidum Ab Reflex Negative (Negative)
--- NOTE | 2025-02-20 16:48 | EEGC.RPT ---
Continuous EEG Report
Recording
Start Date of Data Reviewed: 02/19/25
Start Time of Data Reviewed: 16:20
End Date of Data Reviewed: 02/20/25
End Time of Data Reviewed: 15:00
Type of EEG: Continuous
Done with Video Recording: Yes
Study Sequence: Initiation of Study
Electrocardiogram: Unremarkable
Report
CONTINUOUS EEG MONITORING INTERPRETATION:
Severely abnormal EEG for age due to:
Bihemispheric cortical dysfunction and continuous triphasic wave activity frontally
CLINICAL CORRELATION:
This study was suggestive of status epilepticus, which may be due to issues including hydrocephalus.
In comparison with EEG of one day ago, EEG appeared to be of no significant change.
Clinical correlation is advised.
METHODS:
A 21 channel digitized electroencephalogram (EEG) was performed at the bedside in the intensive care unit. The 10/20 international system of electrode placement was used. ECG was monitored. Video was recorded. Persyst QEEG analysis was performed.
ELECTROENCEPHALOGRAPHER IMPRESSION(S):
Quality
Good
Background
Maximum: Delta, poorly organized
Amplitude: medium
Anterior-posterior gradient: Minimal
Sleep
Drowsiness demonstrated by attenuation of the background rhythm
Abnormal EEG activity
Near-continuous frontally predominant generalizing bilateral triphasic waves of mildly variable characteristics and a periodicity of approximately 2 to 2.5 per second
--- NOTE | 2025-02-20 18:16 | PTCARENOTE ---
see nursing flowsheet. pt bery lethargic. only moans to painful stimuli. pernneuro pt status epilepticus. antiseiizure medications given per order. pt too lethargic for po intake. iv fluids initiated. neuro and hospitalist spoke with family
regarding plan of care.
[2025-02-20] MEDS: LEXAPRO PO (20:45)
[2025-02-20] MEDS: PLAVIX PO (20:45)
[2025-02-20] MEDS: LIPITOR PO (20:45)
[2025-02-20] MEDS: VIMPAT 200 MG IV (21:06)
[2025-02-20] MEDS: KEPPRA 1500 MG IV (21:07)
[2025-02-20] MEDS: APRESOLINE 10 MG IV (21:42)
[2025-02-20] MEDS: PHENOBARBITAL IV (22:44)
--- NOTE | 2025-02-20 23:00 | PTCARENOTE ---
When going to administer pt's phenobarb, the medication spilled onto the floor. Wasted with JANIA Lozano. Additional dose removed and medication was administered (see MAR).
[2025-02-21] VITALS (9 sets, daily range): BP systolic 161–194; BP diastolic 75–121
[2025-02-21] MEDS: LOPRESSOR 5 MG IV (00:02)
--- NOTE | 2025-02-21 00:40 | PTCARENOTE ---
Pt's blood pressure 183/97, hr 110s. PRN hydralazine q4 unable to be administered at this time since last dose given at 2140 for SBP>180. CLAUDIA Mcdermott notified. Rx received for IV Lopressor and medication administered (see MAR).
[2025-02-21 05:13] LABS: Hematocrit 38.4 % (37.0-47.0); Hemoglobin 12.9 g/dL (12.0-16.0); Mean Corp Hgb Conc. 33.6 g/dL (33.0-37.0); Mean Corpuscular Volume 90.6 fL (81.0-99.0); Platelet Count 244 10^3/uL (130-400); Red Cell Dist. Width 11.9 % (11.5-14.5)
[2025-02-21 05:40] LABS: ALT (SGPT) 13 U/L (0-35); AST (SGOT) 21 U/L (14-36); Albumin 3.6 g/dl (3.5-5.0); Alkaline Phosphatase 52 U/L (38-126); Blood Urea Nitrogen 25 mg/dl (7-17); Calcium 8.2 mg/dl (8.4-10.2); Carbon Dioxide 24 mmol/L (22-30); Chloride 115 mmol/L (98-107); Estimated Creatinine Clearance 32 ml/min; Glucose 149 mg/dl (70-99); Potassium 3.4 mmol/L (3.5-5.1); Sodium 143 mmol/L (135-145); Total Protein 6.1 g/dl (6.3-8.2); eGFR 47.80
[2025-02-21] MEDS: D5W 1000 IV (06:04)
[2025-02-21] MEDS: KCL 160 MEQ IV (06:05)
--- NOTE | 2025-02-21 06:18 | PTCARENOTE ---
K this am 3.4 and CLAUDIA Mcdermott notified. IV KCl ordered and currently infusing (see MAR).
[2025-02-21] MEDS: NORVASC PO (09:04)
[2025-02-21] MEDS: INDERAL PO (09:04)
[2025-02-21] MEDS: DEPACON 57.5 MG IV (09:17)
[2025-02-21] MEDS: KCL 270 MEQ IV (09:17)
[2025-02-21] MEDS: VIMPAT 200 MG IV (09:18)
[2025-02-21] MEDS: HEPARIN 5000 UNITS SC (09:19)
[2025-02-21] MEDS: KEPPRA 1500 MG IV (09:19)
[2025-02-21] MEDS: PHENOBARBITAL 32.5 MG IV (09:20)
--- NOTE | 2025-02-21 09:31 | EEGC.RPT ---
Continuous EEG Report
Recording
Start Date of Data Reviewed: 02/20/25
Start Time of Data Reviewed: 07:00
End Date of Data Reviewed: 02/21/25
End Time of Data Reviewed: 07:00
Type of EEG: Continuous
Done with Video Recording: Yes
Study Sequence: Continuation of ongoing Study
Electrocardiogram: Unremarkable
Report
CONTINUOUS EEG MONITORING INTERPRETATION:
Severely abnormal EEG for age due to:
Bihemispheric cortical dysfunction and near continuous triphasic wave activity frontally
CLINICAL CORRELATION:
This study was suggestive of status epilepticus.
In comparison with EEG of one day ago, there appeared to be of no significant change.
Clinical correlation is advised.
METHODS:
A 21 channel digitized electroencephalogram (EEG) was performed at the bedside in the intensive care unit. The 10/20 international system of electrode placement was used. ECG was monitored. Video was recorded. Persyst QEEG analysis was performed.
ELECTROENCEPHALOGRAPHER IMPRESSION(S):
Quality
Good
Background
Maximum: Delta, poorly organized
Amplitude: medium
Anterior-posterior gradient: Minimal
Sleep
Drowsiness demonstrated by attenuation of the background rhythm
Abnormal EEG activity
Near-continuous frontally predominant generalizing bilateral triphasic waves of mildly variable amplitude and a periodicity of approximately 1 to 2 per second
--- NOTE | 2025-02-21 10:01 | W.PN.NEURO.1 ---
Addendum entered and electronically signed by Jovanny Winter MD 02/23/25 10:08:
Status epilepticus was present since the time of admission.
Addendum entered and electronically signed by Jovanny Winter MD 02/22/25 18:06:
Status epilepticus was present
Original Note:
Today's Communication / Plan
-
Reasonable to consider comfort care as the patient has had no significant response to 4 antiseizure medications including levetiracetam, lacosamide, valproic acid, and medium dose phenobarbital, newly initiated 1 day ago
Neuro Assessment/Plan
Assessment
Patient is a 74-year-old female with past medical history of CVA, subdural in November 2024, dementia, epilepsy, hypertension, GERD, depression presented to [facility] on 02/17/2025 due to increasing confusion over the past several days.
Brain MRI 02/19/2025: No acute intracranial abnormality. Moderate age-related parenchymal atrophy. T2/FLAIR hyperintense signal in the white matter of the bilateral cerebral hemispheres, most compatible with moderate chronic microangiopathic
ischemia. Chronic lacunar infarcts of the right external capsule and the left frontoparietal white matter. No mass effect, midline shift, or extra axial collection. No abnormal signal intensity on diffusion-weighted images. Scattered small foci of
susceptibility redemonstrated with greatest involvement of the bilateral cerebellar hemispheres, and to a lesser degree the cerebrum and basal ganglia, for which amyloid angiopathy or hypertensive microangiopathy remain considerations.
EEG 02/19-01/2025: bihemispheric frontally predominant triphasic waves. This study was suggestive of continuous generalized subclinical seizures consistent with status epilepticus.
Head CT 02/17/2025: No acute intracranial abnormality.
Head CT 01/19/2025:
1. Subdural hematoma along the falx, and along the right tentorium have improved compared to 12/27/2024. No acute intracranial hemorrhage is appreciated.
2. Left parietal scalp soft tissue hematoma has resolved.
3. Atrophy, small vessel ischemic change, and chronic lacunar infarct as detailed above.
Head CT 12/27/2024:
Small subdural hematomas involving the falx and the right tentorium, as described.
No evidence for subarachnoid hemorrhage or parenchymal hematoma. There is no midline shift.
Left posterolateral scalp hematoma. No evidence for calvarial fracture.
Impressions: Status epilepticus as evidenced by EEG
Plan
Reasonable to consider comfort care as the patient has had no significant response to 4 antiseizure medications including levetiracetam, lacosamide, valproic acid, and medium dose phenobarbital, newly initiated 1 day ago
-continuous EEG
Will follow as needed.
Subjective/Objective
Subjective Data
Date of Service: February 21, 2025
Patient unable to respond
Objective Data
Vital Signs
Temp Pulse Resp BP Pulse Ox
37.1 C 94 16 171/94 98
02/21/25 07:46 02/21/25 06:00 02/21/25 06:00 02/21/25 06:00 02/21/25 06:00
Lab Results
02/21/25 05:04
02/21/25 05:04
Sodium 143 mmol/L (135-145) 02/21/25 05:04
Potassium 3.4 mmol/L (3.5-5.1) L 02/21/25 05:04
BUN 25 mg/dl (7-17) H 02/21/25 05:04
Glucose 149 mg/dl (70-99) H 02/21/25 05:04
Calcium 8.2 mg/dl (8.4-10.2) L 02/21/25 05:04
Vitamin B12 591 pg/ml (239-931) 02/19/25 07:03
Patient Allergies
No Known Allergies Allergy (Verified 02/17/25 20:21)
Review of Systems
-
Unable to obtain full review of systems at this time due to: Lethargy
History Source: Patient and Family
All other systems: Reviewed and negative
Physical Exam
-
General: Comfortable and Appears Stated Age
Eyes: Round OU
HEENT: Normocephalic, Atraumatic and Anicteric
Respiratory: No Dyspnea
Cardiac: No JVD
GI: Non-distended
Skin: Unremarkable
Extremities: No Clubbing, No Cyanosis and No Edema
Psych: Unable to Assess (sedated)
Extended Neurological Exam
Mood & Affect: Unable to Assess (sedated)
Attention Span & Concentration: Unable to assess (sedated)
Memory: Unable to Assess
Tremor: Hand Tremor Absent and Head Tremor Absent
Involuntary Movement: None
Speech: Mute
Cranial Nerve II: Left Eye: Pupillary Size Unremarkable and Unable to Assess Visual Craig
Cranial Nerve II: Right Eye: Pupillary Size Unremarkable and Unable to Assess Visual Craig
Cranial Nerves III, IV, : Extraocular Movement: Unable to Assess
Cranial Nerve V: Facial Sensation: Unable to Assess
Cranial Nerve VII: Facial Symmetry: Normal Facial Symmetry
Cranial Nerve VIII: Hearing: Unable to Assess
Cranial Nerves IX, X: Palate Movement: Unable to Assess
Cranial Nerve XI: Shoulder Shrug: Unable to Assess
Cranial Nerve XII: Tongue Protusion: Unable to Assess
Muscle Strength, Overall: Negative Spontaneously Moves
Muscle Bulk & Tone: Unable to Assess
Pronator Drift: Unable to Assess
Cold Sensation: Unable to Assess
Vibration Sensation: Unable to Assess
Coordination: Unable to Assess
Gait & Station: Unable to Assess
Data Reviewed
-
EEG: Report Reviewed
Labs: Report Reviewed
Reviewed with: Physician and Family
Old Records: Summarized
Past History
Past History
ED Past Medical History: CVA (right frontal), HTN, Psychiatric (anxiety/depression) and Other (Epilepsy with status epilepticus, intellectual impairment with progression)
Social History
Tobacco: Non-smoker
Alcohol: None
Drug: None
Living: with family
Family History
Family History: Other (Epilepsy in brother)
Medications
-
Medications:
Generic Name Dose Route Start Last Admin
Trade Name Freq PRN Reason Stop Dose Admin
Acetaminophen 650 mg 02/17/25 22:17 02/17/25 23:36
Acetaminophen 325 Mg Tablet PO 03/17/25 22:16 650 mg
Q4HPRN PRN Administration
mild pain/ fever>100.5F
Amlodipine Besylate 5 mg 02/18/25 08:00 02/21/25 09:04
Amlodipine 5 Mg Tablet PO 03/18/25 07:59 Not Given
DAILY MARILIA
Atorvastatin Calcium 40 mg 02/17/25 22:17 02/20/25 20:45
Atorvastatin (Lipitor) 40 Mg Tablet PO 03/17/25 22:16 Not Given
HS MARILIA
Clopidogrel Bisulfate 75 mg 02/17/25 22:17 02/20/25 20:45
Clopidogrel 75 Mg Tablet PO 03/17/25 22:16 Not Given
HS MARILIA
Escitalopram Oxalate 10 mg 02/17/25 22:17 02/20/25 20:45
Escitalopram 10 Mg Tablet PO 03/17/25 22:16 Not Given
HS MARILIA
Heparin Sodium 5,000 units 02/18/25 20:00 02/21/25 09:19
Heparin 5,000 Units/Ml 1 Ml Vial SC 03/18/25 19:59 5,000 units
Q12 MARILIA Administration
Hydralazine HCl 10 mg 02/20/25 13:57 02/20/25 21:42
Hydralazine 20 Mg/Ml Vial IV 03/20/25 13:56 10 mg
Q4HPRN PRN Administration
SBP >180 or DBP >110
Valproate Sodium 750 mg/ 57.5 mls @ 57.5 mls/hr 02/20/25 08:00 02/21/25 09:17
Sodium Chloride IV 03/19/25 07:59 57.5 mls
Q12H MARILIA Administration
Dextrose 1,000 mls @ 50 mls/hr 02/20/25 09:00 02/21/25 06:04
D5w IV 1,000 mls
.Q20H MARILIA Administration
Potassium Chloride 40 meq/ 270 mls @ 67.5 mls/hr 02/21/25 08:35 02/21/25 09:17
Dextrose IV 02/21/25 12:34 270 mls
NOW STA Administration
Lacosamide 200 mg 02/20/25 20:00 02/21/25 09:18
Lacosamide (10 Mg/Ml) 200 Mg/20 Ml Vial IV 03/06/25 19:59 200 mg
Q12 MARILIA Administration
Levetiracetam 1,500 mg 02/20/25 20:00 02/21/25 09:19
Levetiracetam (100 Mg/Ml) 500 Mg/5 Ml Vial IV 03/18/25 19:59 1,500 mg
Q12 MARILIA Administration
Lorazepam 2 mg 02/19/25 20:39
Lorazepam 2 Mg/Ml Vial IV 03/19/25 20:38
Q4HPRN PRN
for seizure activity >5minutes
Pantoprazole Sodium 40 mg 02/18/25 08:00 02/21/25 09:04
Pantoprazole 40 Mg Delayed Release Tablet PO 03/18/25 07:59 Not Given
DAILY MARILIA
Phenobarbital Sodium 32.5 mg 02/20/25 16:00 02/21/25 09:20
Phenobarbital (65 Mg/Ml) 1 Ml Vial IV 02/22/25 08:01 32.5 mg
TID MARILIA Administration
Propranolol HCl 20 mg 02/18/25 08:00 02/21/25 09:04
Propranolol 20 Mg Regular Release Tablet PO 03/18/25 07:59 Not Given
BID MARILIA
Sodium Chloride 0 flush 02/17/25 23:00
Sodium Chloride 0.9% (Flush) Syringe IV 03/17/25 22:59
PER PROTOCOL MARILIA
Sodium Chloride 1 ml 02/19/25 20:44
Nss (Pf) 10 Ml Vial For Ativan 2 Mg Dose IV 03/19/25 20:43
Q4HPRN PRN
IV LORAZEPAM DILUTION
--- NOTE | 2025-02-21 12:08 | CM ---
Patient with Hx Recent subdural hematoma, epilepsy, dementia with Dx Acute encephalopathy, Status Epilepticus. Per nurse; lethargic, non-verbal, withdrawn, arouses to deep pain. IV MS & IV Ativan ordered.
CM Consult: Hospice
Met with patient, her sister Allison POWERS and niece Keely;
explained hospice philosophy.
Allison states MD told them patient would likely be staying here in comfort care, therefore deferred conversation about benefits if going to a SNF as not applicable.
Allison was tearful and relaying how patient has been deteriorating at home however functional, since her falls a few months ago.
Allison and Keely agree to meeting with the hospice nurse.
Allison would like to see the oil program compliance specialist.
Referral to [facility].
Spoke with Chaplain Marisela; someone from [employer] office will meet with family today.
Plan follow up after seen by Hospice.
--- NOTE | 2025-02-21 13:13 | W.PN.HOSP.TC ---
Today's Communication/Plan
-
Comfort Care
Hospice engaged
Assessment / Plan
Assessment / Plan
Gen-sleepy but arousable, not interactive
HEENT-NC, AT, anicteric, clear oral mm
Neck-supple
CV-reg, no M, +S1/S2
Lungs-clear B/L
Abd-soft, NT, ND
Ext-no edema
Musculoskeletal-no cyanosis, clubbing
Skin-warm and dry
Neuro-grossly non-focal
Psych-agitated when awoken
Acute encephalopathy
Status Epilepticus - noted on spot EEG
-Cont EEG
-Continuing despite Vimpat, ativan, depakote
-Trial phenobarb
- If fails phenobarb, options remain mechanical ventilation and propfol/versed v comfort
- Despite 4 antiepileptics including Keppra, lacosamide, valproic acid and medium dose phenobarbital, patient remained in status epilepticus. Extensive discussion was performed with family along side neurology below options and neck steps. After
discussion, goals are now focused on comfort. Neuro on board
-MRI with neg for acute path.
-tsh WNL;
#hypernatremia
Accelerated hypertension -difficult to give many meds as patient refuses. uncontrolled blood pressures. Will increase amlodipine to 5 mg daily. Continue propranolol. Stat IV hydral PRN
CKD 3B -renal function likely at baseline.
History of stroke -continue Plavix. chronic lacunar infarct in the right external capsule and left frontoparietal
Recent subdural hematoma - resolution of SDH.
Epilepsy -continue AEDs. F/u Spot EEG
Dementia, possible vascular type-see plan above; most likely vascular
Chronic ambulatory dysfunction
Anxiety/depression
Osteoporosis
Hyperlipidemia
DNR
PT/OT
Total time spent on today's encounter was 55 minutes which included time spent in counseling the patient/family regarding diagnosis and treatment plan as listed above, goals of care, and symptom management. Case was discussed with nursing staff,
specialists, and care coordinators/case management. All labs and imaging personally reviewed by me. Remainder the time spent in detailed review of previous records, lab data, imaging, and other medical provider documentation.
GOC: - Despite 4 antiepileptics including Keppra, lacosamide, valproic acid and medium dose phenobarbital, patient remained in status epilepticus. Extensive discussion was performed with family along side neurology below options and neck steps.
After discussion, goals are now focused on comfort.
Anticipated Discharge: 24 - 48 hours
Subjective/Interval History
-
Date of Service: February 21, 2025
Still remained in status epilepticus despite 4 antiseizure medications
Objective Data
-
Labs:
Laboratory Results
02/21/25
05:04
WBC 13.4 H
Hgb 12.9
Hct 38.4
Plt Count 244
Sodium 143
Potassium 3.4 L
Chloride 115 H
Carbon Dioxide 24
BUN 25 H
Creatinine 1.2 H
Glucose 149 H
Calcium 8.2 L
Total Bilirubin 0.6
AST 21
ALT 13
Alkaline Phosphatase 52
Vital Signs:
Vital Signs
Temp Pulse Resp BP Pulse Ox
99.1 F 95 22 194/118 96
02/21/25 11:05 02/21/25 12:00 02/21/25 12:00 02/21/25 12:00 02/21/25 12:00
I&O
02/20/25 02/21/25 02/22/25
06:59 06:59 06:59
Intake Total 50 / 50 1050 / 1050
Balance 50 / 50 1050 / 1050
Review of Systems
-
History Source: Patient
All other systems: Not reviewed unless documented
Physical Exam
-
General: Comfortable and Appears Chronically Ill
HEENT: Normocephalic, Atraumatic, Nose Appears Normal and Ears Appear Normal
Respiratory: Clear to Auscultation and Non Labored Respirations; Negative Accessory Resp Muscle Use
Cardiac: Regular Rhythm and S1/S2
GI: Soft, Nontender, Nondistended and Normal Bowel Sounds
Skin: Warm and Dry
Neuro: Other (Unresponsive, sedated, maintaining airway)
Data Reviewed
-
MRI: Report Reviewed by me
Labs: Labs Reviewed by me
[2025-02-21] MEDS: MORPHINE SULFATE 1 MG IV ×2 (13:20→14:32)
--- NOTE | 2025-02-21 13:22 | PTCARENOTE ---
1mg morphine admin per comfort care dyspnea policy. family present at bedside. pt resting comfortable post morphine admin.
--- NOTE | 2025-02-21 13:57 | PTCARENOTE ---
report given to 2n sammy
--- NOTE | 2025-02-21 14:05 | PTCARENOTE ---
Patient transfer from IMU to on comfort care. Vs documented. Morphine IV prn given for pain as ordered. Plan of care ongoing. Comfort measures in place.
--- NOTE | 2025-02-21 16:57 | HOSPNOTE ---
Hospice referral received. Reviewed records and patient was not inpatient appropriate this morning. No unmanaged symptoms at that time. Reviewed to continue comfort measures and move to [address] [place] [id number]. Will reassess for inpatient appropriate tomorrow.
Family at bedside. Met with them and they are in agreement. CM, Attending and Primary Nurse updated.
[2025-02-22 07:00] VITALS: BP 194/130
[2025-02-22 07:30] LABS: Hematocrit 40.5 % (37.0-47.0); Hemoglobin 13.5 g/dL (12.0-16.0); Mean Corp Hgb Conc. 33.3 g/dL (33.0-37.0); Mean Corpuscular Volume 91.6 fL (81.0-99.0); Platelet Count 247 10^3/uL (130-400); Red Cell Dist. Width 12.0 % (11.5-14.5)
[2025-02-22 08:02] LABS: ALT (SGPT) 15 U/L (0-35); AST (SGOT) 34 U/L (14-36); Albumin 3.6 g/dl (3.5-5.0); Alkaline Phosphatase 65 U/L (38-126); Blood Urea Nitrogen 29 mg/dl (7-17); Calcium 8.5 mg/dl (8.4-10.2); Carbon Dioxide 20 mmol/L (22-30); Chloride 121 mmol/L (98-107); Estimated Creatinine Clearance 28 ml/min; Glucose 106 mg/dl (70-99); Potassium 3.7 mmol/L (3.5-5.1); Sodium 149 mmol/L (135-145); Total Protein 6.2 g/dl (6.3-8.2); eGFR 39.73
--- NOTE | 2025-02-22 09:13 | CM ---
Reviewed the chart notes. Patient remains on comfort care. CM continues to be available to patient/family.
Plan: comfort care.
--- NOTE | 2025-02-22 12:35 | PTOTSP ---
Speech Language Pathology
Pt seen for dysphagia tx per MD request. Pt was on comfort measures, but more alert this date. Sister and other family member present at bedside. Pt alert and talking. Xerostomia noted. Impulsive rate of intake with liquids. Also trialed
regular solids. Prolonged mastication noted with trace diffuse oral residue, suspect at least in part secondary to xerostomia. Liquid washes cleared oral cavity. Cough with consecutive sips of thin liquids in 1/10 trials. No other coughing
noted. Then seen with IDDSI Level 5 eggs/sausage with mild diffuse oral residue. Pt typically reaching for more before clearing oral cavity.
Recommend:
(1) IDDSI Level 5 (minced/moist) and thin liquids
(2) Aspiration precautions: sit upright, slow rate, pinch straw for only 1-2 sips at a time, ensure oral cavity clear post P.O. intake (may need liquid to clear)
(3) Meds crushed in puree as able
(4) SKEIN WINDING OPERATOR to continue to follow
--- NOTE | 2025-02-22 12:38 | W.PN.HOSP.TC ---
Today's Communication/Plan
-
Speech eval
anti-epileptic med holiday
Hydral IV prn
restart plavix if speech clears
Assessment / Plan
Assessment / Plan
Gen-sleepy but arousable, not interactive
HEENT-NC, AT, anicteric, clear oral mm
Neck-supple
CV-reg, no M, +S1/S2
Lungs-clear B/L
Abd-soft, NT, ND
Ext-no edema
Musculoskeletal-no cyanosis, clubbing
Skin-warm and dry
Neuro-grossly non-focal
Psych-agitated when awoken
Acute encephalopathy
Status Epilepticus - noted on spot EEG,
-Continuing despite Vimpat, ativan, depakote
-Broke Status - now in non convulsive status.
- Despite 4 antiepileptics including Keppra, lacosamide, valproic acid and medium dose phenobarbital, patient remained in status epilepticus.
-Extensive discussion was performed with family along side neurology below options and neck steps. After discussion, goals were comfort but mental satus improved; Goals are as of right now restorative
-MRI with neg for acute path.
-tsh WNL;
#hypernatremia
-start back d5w=
Accelerated hypertension -can resume PO meds once cleared by speech; Stat IV hydral PRN
CKD 3B -renal function likely at baseline.
History of stroke -continue Plavix. chronic lacunar infarct in the right external capsule and left frontoparietal; resume if tolerates PO
Recent subdural hematoma - resolution of SDH.
Epilepsy -continue AEDs. See plan above
Dementia, possible vascular type-see plan above; most likely vascular
Chronic ambulatory dysfunction
Anxiety/depression
Osteoporosis
Hyperlipidemia
DNR
PT/OT
Total time spent on today's encounter was 51 minutes which included time spent in counseling the patient/family regarding diagnosis and treatment plan as listed above, goals of care, and symptom management. Case was discussed with nursing staff,
specialists, and care coordinators/case management. All labs and imaging personally reviewed by me. Remainder the time spent in detailed review of previous records, lab data, imaging, and other medical provider documentation.
Anticipated Discharge: > 48 hours
Subjective/Interval History
-
Date of Service: February 22, 2025
patient alert today, responding appropriately to questions
Objective Data
-
Labs:
Laboratory Results
02/22/25
06:44
WBC 14.2 H
Hgb 13.5
Hct 40.5
Plt Count 247
Sodium 149 H
Potassium 3.7
Chloride 121 H
Carbon Dioxide 20 L
BUN 29 H
Creatinine 1.4 H
Glucose 106 H
Calcium 8.5
Total Bilirubin 0.5
AST 34
ALT 15
Alkaline Phosphatase 65
Vital Signs:
Vital Signs
Temp Pulse Resp BP Pulse Ox
98.4 F 118 24 194/130 93
02/22/25 07:00 02/22/25 07:00 02/22/25 07:00 02/22/25 07:00 02/22/25 07:00
I&O
02/21/25 02/22/25 02/23/25
06:59 06:59 06:59
Intake Total 1050 / 1050
Balance 1050 / 1050
Review of Systems
-
History Source: Patient
All other systems: Not reviewed unless documented
Physical Exam
-
General: Comfortable and Appears Chronically Ill
HEENT: Normocephalic, Atraumatic, Nose Appears Normal and Ears Appear Normal
Respiratory: Clear to Auscultation and Non Labored Respirations; Negative Accessory Resp Muscle Use
Cardiac: Regular Rhythm and S1/S2
GI: Soft, Nontender, Nondistended and Normal Bowel Sounds
Skin: Warm and Dry
Neuro: Other (Unresponsive, sedated, maintaining airway)
Data Reviewed
-
MRI: Report Reviewed by me
Labs: Labs Reviewed by me
--- NOTE | 2025-02-22 13:06 | W.PN.NEURO.1 ---
Today's Communication / Plan
-
Possible patient is experiencing a honeymoon period between side effects provided by antiseizure medications and return to recurrent seizures
Agree with the patient being continued with comfort care until clarity regarding possible rebound back to baseline of dementia has returned
Neuro Assessment/Plan
Assessment
Patient is a 74-year-old female with past medical history of CVA, subdural in November 2024, dementia, epilepsy, hypertension, GERD, depression presented to [facility] on 02/17/2025 due to increasing confusion over the past several days.
Brain MRI 02/19/2025: No acute intracranial abnormality. Moderate age-related parenchymal atrophy. T2/FLAIR hyperintense signal in the white matter of the bilateral cerebral hemispheres, most compatible with moderate chronic microangiopathic
ischemia. Chronic lacunar infarcts of the right external capsule and the left frontoparietal white matter. No mass effect, midline shift, or extra axial collection. No abnormal signal intensity on diffusion-weighted images. Scattered small foci of
susceptibility redemonstrated with greatest involvement of the bilateral cerebellar hemispheres, and to a lesser degree the cerebrum and basal ganglia, for which amyloid angiopathy or hypertensive microangiopathy remain considerations.
EEG 02/19-01/2025: bihemispheric frontally predominant triphasic waves. This study was suggestive of continuous generalized subclinical seizures consistent with status epilepticus.
Head CT 02/17/2025: No acute intracranial abnormality.
Head CT 01/19/2025:
1. Subdural hematoma along the falx, and along the right tentorium have improved compared to 12/27/2024. No acute intracranial hemorrhage is appreciated.
2. Left parietal scalp soft tissue hematoma has resolved.
3. Atrophy, small vessel ischemic change, and chronic lacunar infarct as detailed above.
Head CT 12/27/2024:
Small subdural hematomas involving the falx and the right tentorium, as described.
No evidence for subarachnoid hemorrhage or parenchymal hematoma. There is no midline shift.
Left posterolateral scalp hematoma. No evidence for calvarial fracture.
Impressions: Status epilepticus as evidenced by EEG
Patient had cognitive rebound after discontinuance of antiseizure medications
Plan
Possible patient is experiencing a honeymoon period between side effects provided by antiseizure medications and return to recurrent seizures
Agree with the patient being continued with comfort care until clarity regarding possible rebound back to baseline of dementia has returned
Will follow peripherally.
Subjective/Objective
Subjective Data
Date of Service: February 22, 2025
Patient unable to provide her own medical history
Objective Data
Vital Signs
Temp Pulse Resp BP Pulse Ox
36.9 C 118 24 194/130 93
02/22/25 07:00 02/22/25 07:00 02/22/25 07:00 02/22/25 07:00 02/22/25 07:00
Lab Results
02/22/25 06:44
02/22/25 06:44
Sodium 149 mmol/L (135-145) H 02/22/25 06:44
Potassium 3.7 mmol/L (3.5-5.1) 02/22/25 06:44
BUN 29 mg/dl (7-17) H 02/22/25 06:44
Glucose 106 mg/dl (70-99) H 02/22/25 06:44
Calcium 8.5 mg/dl (8.4-10.2) 02/22/25 06:44
Vitamin B12 591 pg/ml (239-931) 02/19/25 07:03
Patient Allergies
No Known Allergies Allergy (Verified 02/17/25 20:21)
Review of Systems
-
Unable to obtain full review of systems at this time due to: Dementia
History Source: Patient
All other systems: Reviewed and negative
Physical Exam
-
General: No Apparent Distress and Appears Stated Age
Eyes: [place] OU, [place] Conjunctivae and No Ptosis
HEENT: Anicteric and Moist Mucous Membranes
Neck: Full Range of Motion
Respiratory: No Dyspnea
Cardiac: No JVD
GI: Non-distended
Skin: Unremarkable
Extremities: No Clubbing, No Cyanosis and No Edema
Psych: Negative Intact Judgement/Insight
Extended Neurological Exam
Mood & Affect: Mood Unremarkable
Attention Span & Concentration: Awake, Alert, Interactive (Intermittently interactive and at times refusing examiners requests) and Other (Significant difficulty with single step requests)
Memory: Able to Recall (own first name) and Unable to Recall Personal History
Tremor: Hand Tremor Absent and Head Tremor Absent
Involuntary Movement: None
Speech: Quality Unremarkable and Severely Reduced Output
Cranial Nerve II: Left Eye: Pupillary Size Unremarkable and Visual Craig Grossly Intact
Cranial Nerve II: Right Eye: Pupillary Size Unremarkable and Visual Craig Grossly Intact
Cranial Nerves III, IV, : Extraocular Movement: Grossly Intact
Cranial Nerve V: Facial Sensation: Unable to Assess
Cranial Nerve VII: Facial Symmetry: Normal Facial Symmetry
Cranial Nerve VIII: Hearing: Unremarkable Hearing to Normal Conversational Volume
Cranial Nerves IX, X: Palate Movement: Unable to Assess
Cranial Nerve XI: Shoulder Shrug: Unable to Assess
Cranial Nerve XII: Tongue Protusion: Unable to Assess
Muscle Strength, Overall: Spontaneously Moves
Muscle Bulk & Tone: Bulk Unremarkable and Tone Unremarkable
Pronator Drift: Unable to Assess
Cold Sensation: Unable to Assess
Vibration Sensation: Unable to Assess
Touch Sensation: Unremarkable
Gait & Station: Unable to Assess
Data Reviewed
-
Labs: Report Reviewed
Reviewed with: Physician, Nurse Practioner and Family (By phone)
Old Records: Summarized
Past History
Past History
ED Past Medical History: CVA (right frontal), HTN, Psychiatric (anxiety/depression) and Other (Epilepsy with status epilepticus, intellectual impairment with progression)
Social History
Tobacco: Non-smoker
Alcohol: None
Drug: None
Living: with family
Family History
Family History: Other (Epilepsy in brother)
Medications
-
Medications:
Generic Name Dose Route Start Last Admin
Trade Name Freq PRN Reason Stop Dose Admin
Hydralazine HCl 5 mg 02/22/25 12:45
Hydralazine 20 Mg/Ml Vial IV 03/22/25 12:44
Q4HPRN PRN
SBP>180 or DBP>110
Dextrose 1,000 mls @ 50 mls/hr 02/22/25 13:00
D5w IV
.Q20H MARILIA
Lorazepam 1 mg 02/21/25 12:41
Lorazepam 1 Mg Tablet SL 03/21/25 12:40
Q2HPRN PRN
anxiety
Protocol
Lorazepam 2 mg 02/21/25 11:15
Lorazepam 2 Mg/Ml Vial IV 03/21/25 11:14
Q1HPRN PRN
seizure
Protocol
[2025-02-22] MEDS: LR 500 IV (13:15)
[2025-02-22] MEDS: ATIVAN 1 MG SL ×2 (13:18→23:12)
[2025-02-22 13:30] VITALS: BP 160/110
[2025-02-22] MEDS: D5W 1000 IV (14:30)
--- NOTE | 2025-02-22 14:34 | HOSPNOTE ---
Family has now opt for treatment. We will sign off and if needed please reach out.
[2025-02-22 15:00] VITALS: BP 167/101
--- NOTE | 2025-02-22 17:07 | PN.CDI ---
CDI
- -
CDI:
Physician Documentation Request
Admit Date: 02/18/25 15:27
Dear Doctor,
Please review the following and provide your response in the progress notes.
Clinical Indicators:
Pt admitted with Confusion / Weakness / Ambulatory Dysfunction, possible progression of her underlying dementia vs TME
Update note 02/19,' Asked to see patient s/p seizure activity, when evaluated patient is postdictal, no seizure activity at this time...'
Neurology consult,' Abrupt onset of change in mental status with prior history of epilepsy, dementia, stroke, subdural hematomaEEG suggestive of a prior pattern recurrent in the form of triphasic waves which are generalized and at a rhythm of 2.5
HzStart continuous EEG monitoringAdd lacosamide with loading dose of 100 mg followed by 100 mg every 12 hoursI agree with provision of lorazepam 2 mg, provided already...Impressions: Status epilepticus as evidence by EEG..'
Please clarify the following:
_ Status epilepticus__ was present on admission
_ Status epilepticus__ was not present on admission
Other ( please specify)
Use of terms such as suspected, likely, concern for, or probable (associated with a specific diagnosis that is being evaluated, monitored, or treated as if it exists) are acceptable and can be coded in the inpatient setting, when documented at the
time of discharge.
Thank you,
Lula Rubalcava RN
CDI Specialist
[place] [facility]
Please use your independent medical judgment in providing your response.
[2025-02-22 23:32] VITALS: BP 145/96
[2025-02-23 06:24] LABS: Hematocrit 35.9 % (37.0-47.0); Hemoglobin 12.1 g/dL (12.0-16.0); Mean Corp Hgb Conc. 33.7 g/dL (33.0-37.0); Mean Corpuscular Volume 90.0 fL (81.0-99.0); Platelet Count 207 10^3/uL (130-400); Red Cell Dist. Width 11.9 % (11.5-14.5)
[2025-02-23 07:24] LABS: ALT (SGPT) 15 U/L (0-35); AST (SGOT) 31 U/L (14-36); Albumin 3.1 g/dl (3.5-5.0); Alkaline Phosphatase 58 U/L (38-126); Blood Urea Nitrogen 32 mg/dl (7-17); Calcium 7.6 mg/dl (8.4-10.2); Carbon Dioxide 22 mmol/L (22-30); Chloride 111 mmol/L (98-107); Estimated Creatinine Clearance 32 ml/min; Glucose 124 mg/dl (70-99); Potassium 3.5 mmol/L (3.5-5.1); Sodium 138 mmol/L (135-145); Total Protein 5.4 g/dl (6.3-8.2); eGFR 47.80
[2025-02-23 07:45] VITALS: BP 149/101
--- NOTE | 2025-02-23 08:54 | CM ---
Reviewed chart notes. Goals are as of right now restorative. Per PT note, will need new PT/OT restart orders. CM continues to be available to patient/family and is monitoring medical plan for needs at discharge.
Plan: Discharge plans will depend on the patient's progress. Need PT/OT evaluation for discharge purposes.
[2025-02-23] MEDS: INDERAL PO (10:40)
[2025-02-23] MEDS: PLAVIX PO (10:46)
[2025-02-23] MEDS: PROTONIX PO (10:46)
[2025-02-23] MEDS: TYLENOL 650 MG PO (10:54)
[2025-02-23] MEDS: D5W 1000 IV (11:21)
--- NOTE | 2025-02-23 12:10 | WOUNDNOTE ---
[facility] RN note: Patient admitted with weakness and confusion on 02/17. Per Physician note on 02/21 comfort care planned. Per chart, family has since changed to wanting restorative care.
See H&P for complete history.
PMH: TME - ? Acuity, Weakness / Confusion,ASCVD / Prior CVA,Recent Traumatic SDH - Resolved,Seizure Disorder
Senile Dementia,CKD III,Benign Hypertension,Anxiety / Depression,Chronic Ambulatory Dysfunction
Wound Location and type/assessment: Patient seen for new stage 2 of left hip noted on HAP report. Patient found on [employer] Accumax with hip off-loaded on air cushion. Heels off-loaded with pillows under calves. At time of assessment patient only
responded to tactile stimuli and was non-verbal. Spoke to RNIsma who assessed patient for air overly but did not apply due to fall risk. Upon assessment, patient appears to have skin tear of left thigh. Heels and sacrum and intact.
Appetite: Fair to poor, depending on MS.
Pressure redistribution devices in place: Called bed tech and requested air bed. Heels off-loaded with pillows under calves, turning schedule.
Plan: Left thigh skin tear cleaned with normal saline and silicone border foam applied. Continue with all of turning and off-loading measures. RN Isma given update. Will confirm orders with hospitalist and update nurse. Updated care plan and will
follow as needed.
Note to case management of equipment requested for discharge: Air mattress
Recommend follow up at wound care center upon discharge.
--- NOTE | 2025-02-23 12:51 | W.PN.HOSP.TC ---
Addendum entered and electronically signed by Baltazar Mcdonough MD 02/23/25 13:30:
Status Epilepticus, POA
Original Note:
Today's Communication/Plan
-
AEDs as per Neuro
PT/OT
Monitor Na on D5W
Assessment / Plan
Assessment / Plan
Gen-AAOx3
HEENT-NC, AT, anicteric, clear oral mm
Neck-supple
CV-reg, no M, +S1/S2
Lungs-clear B/L
Abd-soft, NT, ND
Ext-no edema
Musculoskeletal-no cyanosis, clubbing
Skin-warm and dry
Neuro-grossly non-focal
Psych-NAD
Acute encephalopathy
Status Epilepticus - noted on spot EEG,
Initial plan was Despite 4 antiepileptics including Keppra, lacosamide, valproic acid and medium dose phenobarbital, patient remained in status epilepticus. Extensive discussion was performed with family along side neurology below options and neck
steps. After discussion, goals were comfort but mental status improved; Goals are as of right now restorative
-Broke Status - now in non convulsive status.
- Restart AEDs as per Neurology
-MRI with neg for acute path.
-tsh WNL;
#hypernatremia
- d5w
-monitor now that tolerating PO
Accelerated hypertension -can resume PO meds ; IV hydral PRN
CKD 3B -renal function likely at baseline.
History of stroke -continue Plavix. chronic lacunar infarct in the right external capsule and left frontoparietal;
Recent subdural hematoma - resolution of SDH.
Epilepsy -resume AEDs as per neurology. See plan above
Dementia, possible vascular type-see plan above; most likely vascular
Chronic ambulatory dysfunction
Anxiety/depression
Osteoporosis
Hyperlipidemia
DNR
PT/OT
Anticipated Discharge: > 48 hours
Subjective/Interval History
-
Date of Service: February 23, 2025
AAox3 ate breakfast
Objective Data
-
Labs:
Laboratory Results
02/23/25
05:13
WBC 11.4 H
Hgb 12.1
Hct 35.9 L
Plt Count 207
Sodium 138 D
Potassium 3.5
Chloride 111 H
Carbon Dioxide 22
BUN 32 H
Creatinine 1.2 H
Glucose 124 H
Calcium 7.6 L
Total Bilirubin 0.5
AST 31
ALT 15
Alkaline Phosphatase 58
Vital Signs:
Vital Signs
Temp Pulse Resp BP Pulse Ox
98.2 F 111 18 109/76 91
02/23/25 07:45 02/23/25 10:40 02/23/25 07:45 02/23/25 10:40 02/23/25 07:45
I&O
02/22/25 02/23/25 02/24/25
06:59 06:59 06:59
Intake Total 920 / 920
Balance 920 / 920
Review of Systems
-
History Source: Patient
All other systems: Not reviewed unless documented
Data Reviewed
-
MRI: Report Reviewed by me
Labs: Labs Reviewed by me
[2025-02-23 13:06] VITALS: BP 152/99
--- NOTE | 2025-02-23 13:12 | PN.CDI ---
CDI
- -
CDI:
Physician Documentation Request
Admit Date: 02/18/25 15:27
Dear Doctor Ceasar,
Please review the following and provide your response in the progress notes.
Clinical Indicators:
Pt admitted with Confusion / Weakness / Ambulatory Dysfunction, possible progression of her underlying dementia vs TME
Documented per H&P.' TME - ? Acuity...Confusion / Weakness / Ambulatory Dysfunction, possible progression of her underlying dementia vs TME....'
Progress notes 02/21-02/23,' Acute encephalopathy Status Epilepticus - noted on spot EEG..Continuing despite Vimpat, ativan, depakote Trial phenobarb...'
Please specify the known or suspected type of the documented encephalopathy:
Metabolic
Toxic metabolic
Other ( please specify)
Use of terms such as suspected, likely, concern for, or probable (associated with a specific diagnosis that is being evaluated, monitored, or treated as if it exists) are acceptable and can be coded in the inpatient setting, when documented at the
time of discharge.
Thank you,
Lula Rubalcava RN
CDI Specialist
[place] [facility]
Please use your independent medical judgment in providing your response.
--- NOTE | 2025-02-23 13:19 | PN.CDI ---
CDI
- -
CDI:
Physician Documentation Request
Admit Date: 02/18/25 15:27
Dear Doctor Ceasar,
Please review the following and provide your response in the progress notes.
Clinical Indicators:
Pt admitted with Confusion / Weakness / Ambulatory Dysfunction, possible progression of her underlying dementia vs TME
WOCN note 02/22,' Patient seen for new stage 2 of left hip noted on HAP report. Patient found on [employer] Accumax with hip off-loaded on air cushion....silicone border foam applied. Continue with all of turning and off-loading measures...'
Documented per nursing wound care note 02/21,' left hip ..pressure injury stage 2 ...adhesive foam...'
Physician documentation of the type and location of wounds is required for compliant documentation. Based on the above clinical findings and your assessment, please provide the following in your progress note:
1. Location of the ulcer/wound, including laterality.
2. Type (etiology) of ulcer/wound:
- Pressure (decubitus) ulcer
- Non-pressure ulcer
- Other ( please specify)
Use of terms such as suspected, likely, concern for, or probable (associated with a specific diagnosis that is being evaluated, monitored, or treated as if it exists) are acceptable and can be coded in the inpatient setting, when documented at the
time of discharge.
Thank you,
Lula Rubalcava RN
CDI Specialist
[place] [facility]
Please use your independent medical judgment in providing your response.
*Source: National Pressure Ulcer Advisory Panel (NPUAP)
[2025-02-23 15:40] VITALS: BP 143/81
[2025-02-23] MEDS: INDERAL 20 MG PO (21:29)
[2025-02-24 00:48] VITALS: BP 165/96
[2025-02-24 06:43] LABS: Hematocrit 33.6 % (37.0-47.0); Hemoglobin 11.4 g/dL (12.0-16.0); Mean Corp Hgb Conc. 33.9 g/dL (33.0-37.0); Mean Corpuscular Volume 89.1 fL (81.0-99.0); Platelet Count 184 10^3/uL (130-400); Red Cell Dist. Width 11.9 % (11.5-14.5)
[2025-02-24 07:07] LABS: ALT (SGPT) 17 U/L (0-35); AST (SGOT) 25 U/L (14-36); Albumin 2.8 g/dl (3.5-5.0); Alkaline Phosphatase 48 U/L (38-126); Blood Urea Nitrogen 29 mg/dl (7-17); Calcium 7.9 mg/dl (8.4-10.2); Carbon Dioxide 25 mmol/L (22-30); Chloride 108 mmol/L (98-107); Estimated Creatinine Clearance 32 ml/min; Glucose 106 mg/dl (70-99); Potassium 3.7 mmol/L (3.5-5.1); Sodium 136 mmol/L (135-145); Total Protein 5.1 g/dl (6.3-8.2); eGFR 47.80
[2025-02-24 07:40] VITALS: BP 153/89
[2025-02-24] MEDS: INDERAL 20 MG PO ×2 (09:13→21:24)
[2025-02-24] MEDS: PLAVIX 75 MG PO (09:13)
[2025-02-24] MEDS: PROTONIX 40 MG PO (09:13)
--- NOTE | 2025-02-24 12:37 | W.PN.HOSP.TC ---
Addendum entered and electronically signed by Baltazar Mcdonough MD 02/24/25 15:47:
left hip pressure injury stage 2
Addendum entered and electronically signed by Baltazar Mcdonough MD 02/24/25 15:46:
Acute Encephalopathy, unspecified - 2/2 to seizures - no obvious metabolic reasons at this time
Original Note:
Today's Communication/Plan
-
stop d5w
start AEDs tonight
Assessment / Plan
Assessment / Plan
Gen-AAOx3
HEENT-NC, AT, anicteric, clear oral mm
Neck-supple
CV-reg, no M, +S1/S2
Lungs-clear B/L
Abd-soft, NT, ND
Ext-no edema
Musculoskeletal-no cyanosis, clubbing
Skin-warm and dry
Neuro-grossly non-focal
Psych-NAD
Acute encephalopathy
Status Epilepticus - noted on spot EEG,
Initial plan was Despite 4 antiepileptics including Keppra, lacosamide, valproic acid and medium dose phenobarbital, patient remained in status epilepticus. Extensive discussion was performed with family along side neurology below options and neck
steps. After discussion, goals were comfort but mental status improved; Goals are as of right now restorative
-Broke Status - now in non convulsive status.
- Restart AEDs as per Neurology - tentatively tonight 02/24
-MRI with neg for acute path.
-tsh WNL;
#hypernatremia
- dc d5w - tolerating diet
Accelerated hypertension -can resume PO meds ; IV hydral PRN
CKD 3B -renal function likely at baseline.
History of stroke -continue Plavix. chronic lacunar infarct in the right external capsule and left frontoparietal;
Recent subdural hematoma - resolution of SDH.
Epilepsy -resume AEDs as per neurology. See plan above
Dementia, possible vascular type-see plan above; most likely vascular
Chronic ambulatory dysfunction
Anxiety/depression
Osteoporosis
Hyperlipidemia
DNR
PT/OT
Anticipated Discharge: 24 - 48 hours
Subjective/Interval History
-
Date of Service: February 24, 2025
mental status is stable, responding appropriately
Objective Data
-
Labs:
Laboratory Results
02/24/25
06:17
WBC 11.3 H
Hgb 11.4 L
Hct 33.6 L
Plt Count 184
Sodium 136
Potassium 3.7
Chloride 108 H
Carbon Dioxide 25
BUN 29 H
Creatinine 1.2 H
Glucose 106 H
Calcium 7.9 L
Total Bilirubin 0.4
AST 25
ALT 17
Alkaline Phosphatase 48
Vital Signs:
Vital Signs
Temp Pulse Resp BP Pulse Ox
98.1 F 87 16 153/89 92
02/24/25 07:40 02/24/25 07:40 02/24/25 07:40 02/24/25 07:40 02/24/25 07:40
I&O
02/23/25 02/24/25 02/25/25
06:59 06:59 06:59
Intake Total 920 / 920 655 / 655
Balance 920 / 920 655 / 655
Review of Systems
-
History Source: Patient
All other systems: Not reviewed unless documented
Physical Exam
-
General: Well Developed, Comfortable and Appears Chronically Ill
HEENT: Normocephalic, Atraumatic, Nose Appears Normal and Ears Appear Normal
Respiratory: Clear to Auscultation and Non Labored Respirations; Negative Accessory Resp Muscle Use
Cardiac: Regular Rhythm and S1/S2
GI: Soft, Nontender, Nondistended and Normal Bowel Sounds
Skin: Warm and Dry
Neuro: Awake, Alert, Oriented and AO x 3
Data Reviewed
-
Diagnostic Radiology: Report Reviewed by me
MRI: Report Reviewed by me
Labs: Labs Reviewed by me
[2025-02-24] MEDS: D5W IV (13:02)
[2025-02-24 15:30] VITALS: BP 150/85
[2025-02-24] MEDS: SENOKOT-S 1 TABLET PO (21:00)
[2025-02-24] MEDS: KEPPRA 1000 MG PO (21:00)
--- NOTE | 2025-02-24 21:05 | W.PN.NEURO.1 ---
Today's Communication / Plan
-
spoke extensively with patient and sister - patient awake, mentating similarly or slightly worse to her initial presentation, not back to baseline like how she was 1 week ago before this acute illness.
on exam intermittently answering appropriately, intermittently cooperative, parkinsonism with resting tremors, oromandibular dyskinesias, bradykinesia. +vertical gaze palsy noted (and when asked she admits to difficulty looking up/down.
summarizing events of admission, the patient presented with Wednesday 5 days ago with falls, confused, unable to get up, not answering appropriately. EEG showing Triphasic waves 2-3/s which represents ictal/interictal continuum (sometimes a seizure)
and the closer to 3 Hz, the more likely that is a seizure; and if more than 3 hz definitely a seizure. Given that this was the same clinical and EEG pattern as her initial epilepsy presentation in 2020, this was treated as non-convulsive status
epilepticus. as innumerable interictal EEGs showed mild slowing, and none of this activity, and there was no toxic/metabolic/infectious etiologies that could be alternative explanations. She was given Ativan 2 mg. with this dx, you typically take
1-2 days to try to get the seizures under control before before intubation, anesthetics and burst suppression; the patient is DNR/DNI so she was started lacosamide, valproic acid, and medium dose phenobarbital in addition to her home Keppra; by
Wednesday the EEG did look better in the that there was low amplitude slowing with none of the epileptiform activity. unfortunately, the meds sedated her into unresponsiveness, the meds were stopped, and she woke up, but not back to baseline, per
sister similar or worse than initial presentation; will repeat EEG Wednesday question is she back in non-convulsive status on EEG in which case she would go to hospice because we would not repeat the same treatment or escalate; or is she back to her
interictal EEG and expected to continue to improve.
her constellation of 4 years of progressive symptoms epilepsy, cognitive decline, Parkinsonism poorly responsive and intolerant to Sinemet, foot inversion (dystonia), oromandibular dyskinesias, vertical gaze palsy, lack of psychotic symptoms, would
be best explained by progressive supranuclear palsy (PSP) though an autoimmune/paraneoplastic disorder also considered.
Neuro Assessment/Plan
Assessment
Patient is a 74-year-old female with past medical history of CVA, subdural in November 2024, dementia, epilepsy, hypertension, GERD, depression presented to [facility] on 02/17/2025 due to increasing confusion over the past several days.
Brain MRI 02/19/2025: No acute intracranial abnormality. Moderate age-related parenchymal atrophy. T2/FLAIR hyperintense signal in the white matter of the bilateral cerebral hemispheres, most compatible with moderate chronic microangiopathic
ischemia. Chronic lacunar infarcts of the right external capsule and the left frontoparietal white matter. No mass effect, midline shift, or extra axial collection. No abnormal signal intensity on diffusion-weighted images. Scattered small foci of
susceptibility redemonstrated with greatest involvement of the bilateral cerebellar hemispheres, and to a lesser degree the cerebrum and basal ganglia, for which amyloid angiopathy or hypertensive microangiopathy remain considerations.
EEG 02/19-01/2025: bihemispheric frontally predominant triphasic waves. This study was suggestive of continuous generalized subclinical seizures consistent with status epilepticus.
Head CT 02/17/2025: No acute intracranial abnormality.
Head CT 01/19/2025:
1. Subdural hematoma along the falx, and along the right tentorium have improved compared to 12/27/2024. No acute intracranial hemorrhage is appreciated.
2. Left parietal scalp soft tissue hematoma has resolved.
3. Atrophy, small vessel ischemic change, and chronic lacunar infarct as detailed above.
Head CT 12/27/2024:
Small subdural hematomas involving the falx and the right tentorium, as described.
No evidence for subarachnoid hemorrhage or parenchymal hematoma. There is no midline shift.
Left posterolateral scalp hematoma. No evidence for calvarial fracture.
Impressions: Status epilepticus as evidenced by EEG
Patient had cognitive rebound after discontinuance of antiseizure medications
Plan
Possible patient is experiencing a honeymoon period between side effects provided by antiseizure medications and return to recurrent seizures
Agree with the patient being continued with comfort care until clarity regarding possible rebound back to baseline of dementia has returned
Will follow peripherally.
Subjective/Objective
Subjective Data
Date of Service: February 24, 2025
Objective Data
Vital Signs
Temp Pulse Resp BP Pulse Ox
36.8 C 92 17 150/85 92
02/24/25 15:30 02/24/25 15:30 02/24/25 15:30 02/24/25 15:30 02/24/25 15:30
Lab Results
02/24/25 06:17
02/24/25 06:17
Sodium 136 mmol/L (135-145) 02/24/25 06:17
Potassium 3.7 mmol/L (3.5-5.1) 02/24/25 06:17
BUN 29 mg/dl (7-17) H 02/24/25 06:17
Glucose 106 mg/dl (70-99) H 02/24/25 06:17
Calcium 7.9 mg/dl (8.4-10.2) L 02/24/25 06:17
Vitamin B12 591 pg/ml (239-931) 02/19/25 07:03
Patient Allergies
No Known Allergies Allergy (Verified 02/17/25 20:21)
[2025-02-24] MEDS: ATIVAN 1 MG SL (23:38)
[2025-02-24 23:49] VITALS: BP 157/91
[2025-02-25 06:22] LABS: Hematocrit 34.4 % (37.0-47.0); Hemoglobin 11.7 g/dL (12.0-16.0); Mean Corp Hgb Conc. 34.0 g/dL (33.0-37.0); Mean Corpuscular Volume 89.6 fL (81.0-99.0); Platelet Count 195 10^3/uL (130-400); Red Cell Dist. Width 12.0 % (11.5-14.5)
[2025-02-25 06:51] LABS: ALT (SGPT) 19 U/L (0-35); AST (SGOT) 25 U/L (14-36); Albumin 2.9 g/dl (3.5-5.0); Alkaline Phosphatase 50 U/L (38-126); Blood Urea Nitrogen 36 mg/dl (7-17); Calcium 8.4 mg/dl (8.4-10.2); Carbon Dioxide 21 mmol/L (22-30); Chloride 109 mmol/L (98-107); Estimated Creatinine Clearance 30 ml/min; Glucose 107 mg/dl (70-99); Potassium 4.2 mmol/L (3.5-5.1); Sodium 137 mmol/L (135-145); Total Protein 5.1 g/dl (6.3-8.2); eGFR 43.42
[2025-02-25 08:03] VITALS: BP 137/86
[2025-02-25] MEDS: PLAVIX 75 MG PO (08:18)
[2025-02-25] MEDS: KEPPRA 1000 MG PO ×2 (08:18→21:41)
[2025-02-25] MEDS: PROTONIX 40 MG PO (08:18)
[2025-02-25] MEDS: SENOKOT-S 1 TABLET PO ×2 (08:18→21:41)
[2025-02-25] MEDS: INDERAL 20 MG PO ×2 (08:18→21:40)
--- NOTE | 2025-02-25 12:26 | W.PN.HOSP.TC ---
Today's Communication/Plan
-
AEDs
EEG tomorrow
Assessment / Plan
Assessment / Plan
Gen-AAOx3
HEENT-NC, AT, anicteric, clear oral mm
Neck-supple
CV-reg, no M, +S1/S2
Lungs-clear B/L
Abd-soft, NT, ND
Ext-no edema
Musculoskeletal-no cyanosis, clubbing
Skin-warm and dry
Neuro-grossly non-focal
Psych-NAD
Acute encephalopathy
Status Epilepticus - noted on spot EEG,
Initial plan was Despite 4 antiepileptics including Keppra, lacosamide, valproic acid and medium dose phenobarbital, patient remained in status epilepticus. Extensive discussion was performed with family along side neurology below options and neck
steps. After discussion, goals were comfort but mental status improved; Goals are as of right now restorative
-Broke Status - now in non convulsive status.
- Restart AEDs as per Neurology - 02/24
-Repeat EEG tomorrow now back on Keppra
-MRI with neg for acute path.
-tsh WNL;
#hypernatremia
- dc d5w - tolerating diet
Accelerated hypertension -can resume PO meds ; IV hydral PRN
CKD 3B -renal function likely at baseline.
History of stroke -continue Plavix. chronic lacunar infarct in the right external capsule and left frontoparietal;
Recent subdural hematoma - resolution of SDH.
Epilepsy -resume AEDs as per neurology. See plan above
Dementia, possible vascular type-see plan above; most likely vascular
Chronic ambulatory dysfunction
Anxiety/depression
Osteoporosis
Hyperlipidemia
DNR
PT/OT
Anticipated Discharge: > 48 hours
Subjective/Interval History
-
Date of Service: February 25, 2025
No events overnight
Objective Data
-
Labs:
Laboratory Results
02/25/25
05:51
WBC 11.0 H
Hgb 11.7 L
Hct 34.4 L
Plt Count 195
Sodium 137
Potassium 4.2
Chloride 109 H
Carbon Dioxide 21 L
BUN 36 H
Creatinine 1.3 H
Glucose 107 H
Calcium 8.4
Total Bilirubin 0.4
AST 25
ALT 19
Alkaline Phosphatase 50
Vital Signs:
Vital Signs
Temp Pulse Resp BP Pulse Ox
97.3 F 82 16 137/86 93
02/25/25 08:03 02/25/25 08:03 02/25/25 08:03 02/25/25 08:18 02/25/25 08:03
I&O
02/24/25 02/25/25 02/26/25
06:59 06:59 06:59
Intake Total 655 / 655 420 / 420
Balance 655 / 655 420 / 420
Review of Systems
-
History Source: Patient
All other systems: Not reviewed unless documented
Physical Exam
-
General: Well Developed, Comfortable and Appears Chronically Ill
HEENT: Normocephalic, Atraumatic, Nose Appears Normal and Ears Appear Normal
Respiratory: Clear to Auscultation and Non Labored Respirations; Negative Accessory Resp Muscle Use
Cardiac: Regular Rhythm and S1/S2
GI: Soft, Nontender, Nondistended and Normal Bowel Sounds
Skin: Warm and Dry
Neuro: Awake, Alert, Oriented and AO x 3
Data Reviewed
-
Diagnostic Radiology: Report Reviewed by me
MRI: Report Reviewed by me
Labs: Labs Reviewed by me
--- NOTE | 2025-02-25 13:45 | CHAP ---
Nicole responded to hearing her name, and welcomed operations research group manager to sit with her. She appeared weak, answered questions slowly, with some confusion. She smiled sweetly and welcomed prayer. Emotional and spiritual support provided.
[2025-02-25 15:35] VITALS: BP 118/80
[2025-02-25 23:41] VITALS: BP 152/92
[2025-02-26 06:28] LABS: Hematocrit 36.1 % (37.0-47.0); Hemoglobin 12.1 g/dL (12.0-16.0); Mean Corp Hgb Conc. 33.5 g/dL (33.0-37.0); Mean Corpuscular Volume 89.8 fL (81.0-99.0); Platelet Count 215 10^3/uL (130-400); Red Cell Dist. Width 12.0 % (11.5-14.5)
[2025-02-26 06:49] LABS: ALT (SGPT) 20 U/L (0-35); AST (SGOT) 24 U/L (14-36); Albumin 3.1 g/dl (3.5-5.0); Alkaline Phosphatase 51 U/L (38-126); Blood Urea Nitrogen 42 mg/dl (7-17); Calcium 9.3 mg/dl (8.4-10.2); Carbon Dioxide 25 mmol/L (22-30); Chloride 106 mmol/L (98-107); Estimated Creatinine Clearance 30 ml/min; Glucose 109 mg/dl (70-99); Potassium 4.3 mmol/L (3.5-5.1); Sodium 137 mmol/L (135-145); Total Protein 5.6 g/dl (6.3-8.2); eGFR 43.42
[2025-02-26 07:40] VITALS: BP 138/99
[2025-02-26] MEDS: SENOKOT-S 1 TABLET PO ×2 (09:12→20:24)
[2025-02-26] MEDS: PLAVIX 75 MG PO (09:12)
[2025-02-26] MEDS: PROTONIX 40 MG PO (09:12)
[2025-02-26] MEDS: KEPPRA 1000 MG PO ×2 (09:12→20:24)
[2025-02-26] MEDS: INDERAL 20 MG PO ×2 (09:12→20:21)
--- NOTE | 2025-02-26 13:16 | W.PN.HOSP.TC ---
Today's Communication/Plan
-
Discharge planning
Assessment / Plan
Assessment / Plan
Gen-AAOx3
HEENT-NC, AT, anicteric, clear oral mm
Neck-supple
CV-reg, no M, +S1/S2
Lungs-clear B/L
Abd-soft, NT, ND
Ext-no edema
Musculoskeletal-no cyanosis, clubbing
Skin-warm and dry
Neuro-grossly non-focal
Psych-NAD
Acute encephalopathy -possibly due to recurrence of seizures. Mental status appears to be back to baseline.
Status Epilepticus - noted on spot EEG, now resolved. No indication to repeat EEG, discussed with neurology Dr. Winter.
-Restart AEDs as per Neurology - 02/24
- Continue Keppra
-MRI with neg for acute path.
-tsh WNL;
Hypernatremia -resolved.
Accelerated hypertension -resolved.
CKD 3B -renal function likely at baseline.
History of stroke -continue Plavix. chronic lacunar infarct in the right external capsule and left frontoparietal;
Recent subdural hematoma - resolution of SDH.
Epilepsy -resume AEDs as per neurology.
Dementia, possible vascular type. Neurology notes possible diagnosis of progressive supranuclear palsy. Outpatient follow-up.
Chronic ambulatory dysfunction -continue PT/OT.
Anxiety/depression
Osteoporosis
Hyperlipidemia -atorvastatin.
DNR
Dispo -stable for SNF placement. Case management updated.
Updated patient's ace Riggs on the phone, all questions answered.
Anticipated Discharge: Within 24 hours
Subjective/Interval History
-
Date of Service: February 26, 2025
Patient seen and examined. No complaints. Pleasantly confused.
Objective Data
-
Labs:
Laboratory Results
02/26/25
06:14
WBC 11.6 H
Hgb 12.1
Hct 36.1 L
Plt Count 215
Sodium 137
Potassium 4.3
Chloride 106
Carbon Dioxide 25
BUN 42 H
Creatinine 1.3 H
Glucose 109 H
Calcium 9.3
Total Bilirubin 0.4
AST 24
ALT 20
Alkaline Phosphatase 51
Vital Signs:
Vital Signs
Temp Pulse Resp BP Pulse Ox
98.5 F 96 16 138/99 93
02/26/25 07:40 02/26/25 07:40 02/26/25 07:40 02/26/25 09:12 02/26/25 07:40
I&O
02/25/25 02/26/25 02/27/25
06:59 06:59 06:59
Intake Total 420 / 420 840 / 840
Balance 420 / 420 840 / 840
Review of Systems
-
History Source: Patient
All other systems: Reviewed and negative
--- NOTE | 2025-02-26 14:04 | CM ---
Reviewed the chart notes and spoke with the patient's sister at the bedside. IMM reviewed. Additional names of SNFs received and referrals sent. CM continues to be available to patient/family and is monitoring medical plan for needs at discharge.
Plan: Discharge to SNF once bed secure. No precert required.
[2025-02-26 15:05] VITALS: BP 129/88; PULSE 90; O2SAT 92
[2025-02-26 15:30] VITALS: BP 115/69
[2025-02-26 23:28] VITALS: BP 131/85
--- NOTE | 2025-02-27 02:35 | DOWNTIME ---
There was a [employer] Message [employer] Developer Downtime on 02/27/2025 from 0100 to 02/27/2025 at 0220. Downtime documentation of patient's care, including medication administrations, has been reconciled in the electronic record per guidelines. Refer to the
patient's paper chart under the miscellaneous tab to see printed paper medication records and downtime forms.
[2025-02-27 07:45] VITALS: BP 111/63
[2025-02-27] MEDS: PROTONIX 40 MG PO (08:09)
[2025-02-27] MEDS: KEPPRA 1000 MG PO ×2 (08:09→18:14)
[2025-02-27] MEDS: INDERAL 20 MG PO ×2 (08:09→18:14)
[2025-02-27] MEDS: PLAVIX 75 MG PO (08:09)
[2025-02-27] MEDS: SENOKOT-S 1 TABLET PO (08:09)
--- NOTE | 2025-02-27 10:47 | W.PN.HOSP.TC ---
Today's Communication/Plan
-
Discharge planning
Assessment / Plan
Assessment / Plan
Gen-awake, alert, NAD
HEENT-NC, AT, anicteric, clear oral mm
Neck-supple
CV-reg, no M, +S1/S2
Lungs-clear B/L
Abd-soft, NT, ND
Ext-no edema
Musculoskeletal-no cyanosis, clubbing
Skin-warm and dry
Neuro-grossly non-focal
Psych-NAD
Acute encephalopathy -possibly due to recurrence of seizures. Mental status appears to be back to baseline.
Status Epilepticus - noted on spot EEG, now resolved. No indication to repeat EEG, discussed with neurology Dr. Winter.
-Restart AEDs as per Neurology - 02/24
- Continue Keppra
-MRI neg for acute path.
-tsh WNL;
Hypernatremia -resolved.
Accelerated hypertension -resolved.
CKD 3B -renal function likely at baseline.
History of stroke -continue Plavix. chronic lacunar infarct in the right external capsule and left frontoparietal;
Recent subdural hematoma - resolution of SDH.
Epilepsy -resume AEDs as per neurology.
Dementia, possible vascular type. Neurology notes possible diagnosis of progressive supranuclear palsy. Outpatient follow-up.
Chronic ambulatory dysfunction -continue PT/OT.
Anxiety/depression
Osteoporosis
Hyperlipidemia -atorvastatin.
DNR
Dispo -stable for SNF placement. Case management updated.
Updated patient's ace Riggs on the phone 02/26, all questions answered.
Anticipated Discharge: Today
Subjective/Interval History
-
Date of Service: February 27, 2025
Patient seen and examined. No complaints.
Objective Data
-
Vital Signs:
Vital Signs
Temp Pulse Resp BP Pulse Ox
98.2 F 77 18 111/63 92
02/27/25 07:45 02/27/25 07:45 02/27/25 07:45 02/27/25 07:45 02/27/25 07:45
I&O
02/26/25 02/27/25 02/28/25
06:59 06:59 06:59
Intake Total 840 / 840 1140 / 1140
Balance 840 / 840 1140 / 1140
Review of Systems
-
History Source: Patient
All other systems: Reviewed and negative
--- NOTE | 2025-02-27 11:11 | CM ---
Addendum entered by Soraya Waldron RN 02/27/25 13:57:
CM spoke with the patient's sister at the bedside. She now wants patient to be discharged to [facility] not [facility] due to travel distance for her to visit multiple times a day. CM spoke with Fermin at [facility]. The can accept the
patient.
Plan: Discharge to [facility].
Call report to: [phone]
Fax report to: [phone]
Medical and necessity forms on chart.
Addendum entered by Soraya Waldron RN 02/27/25 12:16:
Patient accepted by [facility]. It was a family decision to switch facilities. Fermin, admissions liaison at [facility], informed of patient's decision to switch facilities.
Plan: Discharge to [facility].
Call report to: [phone] ext [phone]
Fax report to: [phone]
Medical and transport forms on chart.
Addendum entered by Soraya Waldron RN 02/27/25 11:43:
Received voice message from the patient's sister. Would like referral sent to [facility]. Referral to be sent via [facility].
Original Note:
Reviewed the chart notes and spoke with the patient's sister via telephone. [facility] accepted the patient. Sister in agreement. CM continues to be available to patient/family and is monitoring medical plan for needs at discharge.
Plan: Discharge to [facility] when medically stable.
Call report to: [phone]
Fax report to: [phone]
Medical and necessity forms on chart.
--- NOTE | 2025-02-27 14:07 | W.DS.TRANS ---
DC Summary - Research Neuropsychologist
-
Discharge Instructions:
Discharge Diagnosis/Procedures Seizure disorder, hypernatremia, dementia
Diet Other diet
Additional Diets Minced and moist diet
Activity With assistance
Driving Restrictions No driving
Bathing Restrictions None
Instructions:
Stand-Alone Forms:
Changes to Home Medications: No
Discharge Medications:
DC Medications w/original date entered in [employer]
pantoprazole 40 mg tablet,delayed release 40 mg PO DAILY Gastrointestinal issue 03/04/21
atorvastatin 40 mg tablet 40 mg PO HS High cholesterol 01/28/22
clopidogrel 75 mg tablet (Plavix) 75 mg PO HS Blood Clot Prevention/Tx 03/10/22
therapeutic multivitamin 1 tab PO DAILY Supplement 12/29/23
propranolol 20 mg tablet 20 mg PO BID Blood Pressure 10/31/24
levetiracetam 1,000 mg tablet (Keppra) 1,000 mg PO BID #60 tabs 02/27/25
sennosides 8.6 mg-docusate sodium 50 mg tablet 1 tab PO BID #0 tabs 02/27/25
Home Medication Changes
Pending Results: No
[2025-02-27 15:05] VITALS: BP 110/66
== END 2025-02-27 18:30 | DRG 101 ==
LOC: 2 NORTH 15:27
PROVIDERS: Internal Medicine; Physician Assistant Medical; ADMITTING PHYSICIAN Hospitalist; ATTENDING PHYSICIAN Hospitalist; CONSULT PHYSICIAN Psychiatry & Neurology Neurology; EMERGENCY PHYSICIAN Student in an Organized Health Care Education/Training Program; FAMILY PHYSICIAN Family Medicine
DX: G40.901 Epilepsy, unspecified, not intractable, with status epilepticus (principal); F01.53 Vascular dementia, unspecified severity, with mood disturbance; F01.54 Vascular dementia, unspecified severity, with anxiety; I67.4 Hypertensive encephalopathy; E87.0 Hyperosmolality and hypernatremia; G23.1 Progressive supranuclear ophthalmoplegia [Steele-Richardson-Olszewski]; G93.49 Other encephalopathy; F32.A Depression, unspecified; K21.9 Gastro-esophageal reflux disease without esophagitis; Z51.5 Encounter for palliative care; I12.9 Hypertensive chronic kidney disease with stage 1 through stage 4 chronic kidney disease, or unspecified chronic kidney disease; I25.10 Atherosclerotic heart disease of native coronary artery without angina pectoris; M81.0 Age-related osteoporosis without current pathological fracture; L89.222 Pressure ulcer of left hip, stage 2; G25.0 Essential tremor; E78.5 Hyperlipidemia, unspecified; R26.2 Difficulty in walking, not elsewhere classified; N18.32 Chronic kidney disease, stage 3b; W19.XXXA Unspecified fall, initial encounter; Y93.9 Activity, unspecified; Y92.009 Unspecified place in unspecified non-institutional (private) residence as the place of occurrence of the external cause; Z66 Do not resuscitate; Z86.73 Personal history of transient ischemic attack (TIA), and cerebral infarction without residual deficits; Z87.440 Personal history of urinary (tract) infections; Z79.02 Long term (current) use of antithrombotics/antiplatelets; Z91.81 History of falling; Z90.710 Acquired absence of both cervix and uterus; Z11.52 Encounter for screening for COVID-19
CPT/HCPCS: 70450; 70551; 71046; 73560; 80048; 80053; 80177; 81003; 81015; 82140; 82607; 84443; 85025; 85027; 86780; 86803; 87811; 92526; 92610; 95714; 95816; 97116; 97163; 97167; 97530; 97535; 99285; C9254

== ENCOUNTER 2025-03-16 01:35 | Inpatient (IN) | payer MEDICARE, OTHER, SELFPAY ==
[2025-03-15 22:22] VITALS: BP 129/59
[2025-03-15 22:51] LABS: Hematocrit 19.5 % (37.0-47.0); Hemoglobin 6.5 g/dL (12.0-16.0); Mean Corp Hgb Conc. 33.3 g/dL (33.0-37.0); Mean Corpuscular Volume 91.5 fL (81.0-99.0); Nucleated Red Blood Cells % 0 %; Platelet Count 242 10^3/uL (130-400); Red Cell Dist. Width 13.1 % (11.5-14.5)
[2025-03-15 22:57] LABS: ALT (SGPT) < 10 U/L (0-35); AST (SGOT) 12 U/L (14-36); Albumin 3.0 g/dl (3.5-5.0); Alkaline Phosphatase 45 U/L (38-126); Blood Urea Nitrogen 44 mg/dl (7-17); Calcium 8.8 mg/dl (8.4-10.2); Carbon Dioxide 21 mmol/L (22-30); Chloride 111 mmol/L (98-107); Estimated Creatinine Clearance 28 ml/min; Glucose 115 mg/dl (70-99); Potassium 4.5 mmol/L (3.5-5.1); Sodium 138 mmol/L (135-145); Total Protein 5.1 g/dl (6.3-8.2); eGFR 39.73
[2025-03-15 23:00] VITALS: BP 132/68
[2025-03-15 23:12] LABS: Lipase 266 U/L (23-300)
[2025-03-15 23:28] VITALS: BMI 19.1
--- NOTE | 2025-03-15 23:32 | ED.GENMED ---
History of Present Illness
General
Chief Complaint: Abdominal Symptoms
Source: patient and family
Exam Limitations: dementia
Time Seen by Provider: 03/15/25 22:30
Nursing documentation reviewed up to this point in time: agreed with
History of Present Illness
History of Present Illness:
74-year-old female from a local care facility where she was admitted recently presents with vomiting, apparently not keeping down any of her meds including her seizure meds, patient is a bit of a poor historian history obtained to the transfer
record also through her sister
Sister at the bedside states that she has had a decline since a fall few months ago was admitted to the hospital few weeks ago, went to a facility, did notice some black on her gown, she thought it was from Pepto-Bismol
Past History
Past History
ED Past Medical History: CVA (right frontal), HTN, Psychiatric (anxiety/depression) and Other (Epilepsy with status epilepticus, intellectual impairment with progression)
Social History
Tobacco: Non-smoker
Alcohol: None
Drug: None
Living: with family
Family History
Family History: Other (Epilepsy in brother)
Review of Systems
Review of Systems
All Other Systems: Not applicable
ABD/GI: Reports abdominal pain, nausea and vomiting
Phy Exam
Physical Exam
Physical Exam:
Physical Exam
General: Elderly female pale looks chronically ill
Neck: Pallor is present
Heart: s1/s2 regular rate and rhythm, no murmur. equal radial pulses.
Lungs: no acute respiratory distress. clear bilaterally
Abdomen: Distended diminished bowel sounds nontender
Rectal: Dark maroon/black guaiac
Neuro: Nonfocal
Skin: no rash
Psychiatric: Cooperative
Extremities: no edema.
Course
Orders/Labs/Results
Orders:
Orders
03/15/25 22:32
CBC/With Diff [Complete Blood Count/With Diff] Urgent
Comprehensive Metabolic Panel Urgent
Lipase Urgent
Comment: ADDED
03/15/25 22:57
Type+Screen Urgent
0.9% Sodium Chloride 1000 ml [Nss] 1,000 ml IV BOLUS
Ondansetron Injectable [Zofran] 4 mg IV NOW STA
03/15/25 22:58
Add On- LAB Urgent
Tests Added?: lipase
Electrocardiogram (*1) Urgent
Reason for Study: Abdominal Pain
EKG- Treatment ONCE
Obstruct Series W/PA Chest [CR Obstruct Series W/pa Chest] Urgent
Comment:
Reason For Exam: vomiting
03/15/25 22:59
Levetiracetam Injectable [Keppra] 1,000 mg IV NOW STA
Abnormal Lab Results
03/15/25
22:32
WBC 12.9 H 10^3/uL
(4.8-10.8)
RBC 2.13 L 10^6/uL
(4.20-5.40)
Hgb 6.5 L* g/dL
(12.0-16.0)
Hct 19.5 L* %
(37.0-47.0)
Abs Immat Gran (auto) 0.1 H 10^3/uL
(0-0.05)
Absolute Neuts (auto) 8.5 H 10^3/uL
(1.4-6.5)
Absolute Monos (auto) 0.8 H 10^3/uL
(0.1-0.6)
Immature Gran % 1.1 H %
(0-0.5)
Chloride 111 H mmol/L
(98-107)
Carbon Dioxide 21 L mmol/L
(22-30)
BUN 44 H mg/dl
(7-17)
Creatinine 1.4 H mg/dL
(0.6-1.0)
Glucose 115 H mg/dl
(70-99)
AST 12 L U/L
(14-36)
Total Protein 5.1 L g/dl
(6.3-8.2)
Albumin 3.0 L g/dl
(3.5-5.0)
03/15/25 22:32
03/15/25 22:32
Vital Signs
Initial and Last Documented VS:
Initial Vital Signs
Temp Pulse Resp BP Pulse Ox
98.3 F 97 18 129/59 95
03/15/25 22:22 03/15/25 22:22 03/15/25 22:22 03/15/25 22:22 03/15/25 22:22
Last Documented Vital Signs
Temp Pulse Resp BP Pulse Ox
98.3 F 97 18 132/68 94
03/15/25 22:22 03/15/25 22:22 03/15/25 22:22 03/15/25 23:00 03/15/25 23:33
MDM/Problems Addressed
Differential Diagnosis Includes:
Obstruction dehydration GI bleeding electrolyte abnormality peptic ulcer duodenal
MDM/Problems Addressed:
Vomiting, anemia
Chronic conditions affecting care: Neurological disorder and Kidney disease
Acute Exacerbation and/or Progression of Chronic Illness: Neurological disorder and Kidney disease
*Radiology
Radiology exam reviewed: preliminary read by ED provider
*Pulse Oximetry
SaO2: 94
Oxygen Mode of Delivery: Room air
Patient hypoxic: no
*EKG
Interpreted by ED Provider?: Yes
Interpretation: abnormal
Comparison EKG: no comparison EKG present
Heart Rate: 78
Rate: normal
Rhythm: sinus
Ischemia: non-specific ST changes
*Curtain Supervisor Interpretation
Rate: normal
Interpretation: normal
Heart Rate: 78
Rhythm: sinus
*Critical Care Note
Total Time (30-74mins, 75-104mins- exclusive of procedures): 32
Data Reviewed
Review of Other/Old Records Reveals: Labs, Progress Notes and Discharge Summary
Source: patient and family
Further Testing Considered But Not Given:
CT scan
Update Note
Update Note:
12 midnight update labs noted coag positive dark brown-maroon stool
Will start volume resuscitation, PPI, consented for transfusion
Hold on CAT scan shows have acute kidney injury, do not believe she has a surgical abdomen or perforation
ED Attending Note
-
Portions of this chart may have been created with voice recognition software.� Occasional wrong word or��sound alike� substitutions may have occurred due to the inherent limitations of voice recognition software.
Discharge Plan
Departure
Patient Disposition: Admit
Date of Disposition: 03/15/25
Time of Disposition: 23:57
Admit to: Telemetry
Presentation/result/management discussed w/ accepting MD/DO: Hospitalist
Condition: Fair
Discharge Problem:
Acute GI bleeding
Prescriptions:
No Action
pantoprazole 40 MG tablet,delayed release (DR/EC)
40 mg PO DAILY
atorvastatin 40 MG tablet
40 mg PO HS
clopidogrel [Plavix] 75 mg Tablet
75 mg PO HS
therapeutic multivitamin Tablet
1 tab PO DAILY
propranolol 20 mg Tablet
20 mg PO BID
sennosides-docusate sodium 8.6-50 mg Tablet
1 tab PO BID Qty: 0 0RF
levetiracetam [Keppra] 1,000 mg tablet
1,000 mg PO BID Qty: 60 0RF
Referrals:
Dean Landa MD [Family Provider, Family Practice]
Interventions
Interventions:
*Risk Screen - Suicide Last Done: 03/15/25 22:22
*General Assessment Last Done: 03/15/25 22:22
*Neglect/Abuse Screening Last Done: 03/15/25 22:22
*ED- Fall Risk Assessment Last Done: 03/15/25 22:22
*ED COVID-19 Vaccine History Last Done: 03/15/25 22:22
AR-Kiztlu-Lbcmdzencp Assessment Last Done: 03/15/25 23:28
Discharge Date and Time
Print Language: ITALIAN
[2025-03-15] MEDS: KEPPRA 1000 MG IV (23:34)
[2025-03-15] MEDS: ZOFRAN 4 MG IV (23:34)
[2025-03-15] MEDS: NSS 1000 IV (23:35)
[2025-03-15 23:50] VITALS: BP 113/64
[2025-03-16] VITALS (80 sets, daily range): BP systolic 68–158; BP diastolic 28–98; BMI 18.9; BMI 19.0
[2025-03-16] MEDS: PROTONIX 100 IV ×3 (00:41→21:46)
[2025-03-16] MEDS: PROTONIX IV 40 MG IV (00:42)
--- NOTE | 2025-03-16 00:42 | HPS.HSE ---
Addendum entered and electronically signed by Elio Carty DO 03/16/25 01:09:
Update: Discussed with sister the absence of 'Librium' on any prior med lists. She reviewed med data from patient's pharmacy and clarified that medication to which she was referring was 'Lexapro' not Librium.
Original Note:
Family Physician
-
Family Physician: Dean Landa
Chief Complaint
-
N/V
History of Present Illness
Patient is a 74y F with PMH significant for epilepsy, senile dementia and frequent falls who presents to ED from local [place] for evaluation of N/V, poor PO intake and general malaise. History obtained from sister at the bedside, ED staff and review
of [facility] record. Patient was recently hospitalized at from 02/18 - 02/27 for altered mental status and noted to be in refractory status epilepticus at that time. She had minimal improvement despite 4 AEDs and discussions were held regarding Hospice
/ comfort care. Patient clinically improved over the next several days and ultimately Hospice decision was reversed and she was discharged to [facility] on her usual Keppra medication.
Sister states that patient began to have N/V shortly after discharge to [facility] - was eating well here at .
She had difficulty tolerating an y PO intake - including her usual medications. Patient complained of GI upset / abdominal discomfort.
Sister noted some dark colored stool - but attributed this to bowel regimen patient was taking for constipation.
Patient began to appear more pale.
This evening after discussion with [facility] staff, they elected to present to the ED for further evaluation.
Sister also notes intermittent garbled / nonsensical speech. She is concerned for recurrent seizure activity - especially given recent hospitalization, etc.
Sister also states that patient was sent from to [place] 'without her Librium' which she has 'taken for the past 30 years'.
Upon review of several years of H&Ps / DC summaries I can find absolutely no mention of Librium in any of her medication lists.
Medical History
Past Medical History
Past Medical History: Reports Other
Additional Past Medical History:
Ischemic Stroke / Lacunar Infarcts
Subdural Hematoma - December 2024
Dementia, suspect vascular
Seizure Disorder
CKD Stage IIIB
Essential Hypertension
Hyperlipidemia
Essential Tremor
Osteoporosis
Anxiety / Depression
Past Surgical History: Reports Other
Additional Past Surgical History:
Hysterectomy
Social History
Tobacco: Non-smoker
Drug: None
Living: With Family (Sister)
Family History
Family History: Not pertinent
Allergies / Home Medications
Allergies reflects when Allergies were last updated in [employer].
Home Medications with original date entered in [employer]
Allergy/Medication List:
Allergies
Allergy/AdvReac Type Severity Reaction Status Date / Time
No Known Allergies Allergy Verified 02/17/25 20:21
Home Medications
pantoprazole 40 mg tablet,delayed release 40 mg PO DAILY Gastrointestinal issue 03/04/21
atorvastatin 40 mg tablet 40 mg PO HS High cholesterol 01/28/22
clopidogrel 75 mg tablet (Plavix) 75 mg PO HS Blood Clot Prevention/Tx 03/10/22
therapeutic multivitamin 1 tab PO DAILY Supplement 12/29/23
propranolol 20 mg tablet 20 mg PO BID Blood Pressure 10/31/24
sennosides 8.6 mg-docusate sodium 50 mg tablet 1 tab PO BID #0 tabs 02/27/25
bisacodyl 10 mg rectal suppository (Dulcolax (bisacodyl)) 10 mg [place] DAILY PRN constipation 03/16/25
escitalopram oxalate 10 mg tablet 10 mg PO DAILY 03/16/25
levetiracetam 100 mg/mL oral solution 1,000 mg PO BID 03/16/25
magnesium hydroxide 400 mg/5 mL oral suspension (Milk of Magnesia) 30 ml PO DAILY PRN constipation 03/16/25
Review of Systems
-
History Source: Patient and Family
A 12 point ROS was completed and negative except as noted: Yes
Constitutional: Reports Fatigue; Denies Fever or Chills
EENT: Denies Sore Throat
Respiratory: Denies Cough or Trouble Breathing
Cardiac: Denies Chest Pain or Palpitations
Abdomen/GI: Reports Abdominal Pain, Nausea, Vomiting, Constipated and Black Stools; Denies Diarrhea
: Denies Dysuria or Flank Pain
Musculoskeletal: Denies Joint Pain or Edema
Neurological: Reports Weakness; Denies Dizzy or Headache
Physical Exam
Vital Signs
Vital Signs
Temp Pulse Resp BP Pulse Ox
98.3 F 97 18 132/68 94
03/15/25 22:22 03/15/25 22:22 03/15/25 22:22 03/15/25 23:00 03/15/25 23:33
Physical Exam
General: Other (Very pale 74y F in no acute distress.)
HEENT: Moist mucous membranes and PERRLA
Respiratory: Clear; No Wheezes, Rales or Rhonchi
Cardiac: S1/S2, Regular Rhythm and Murmur (II/ JAMIL)
GI: Soft, Non Distended, Normal Bowel Sounds and Other (Mildly, diffusely tender. No rebound / guarding. Pos BS.)
Musculoskeletal: No Clubbing, No Cyanosis and No Edema
Neuro: Other (Patient is awake with good eye contact and responds to questions - usually appropriately but occasionally with unintelligible speech.)
Laboratory Results
-
03/15/25 22:32
03/15/25 22:32
Laboratory Results
Total Bilirubin 0.3 mg/dl (0.2-1.3) 03/15/25 22:32
AST 12 U/L (14-36) L 03/15/25 22:32
ALT < 10 U/L (0-35) 03/15/25 22:32
Alkaline Phosphatase 45 U/L (38-126) 03/15/25 22:32
Lipase 266 U/L (23-300) 03/15/25 22:32
Impression/Plan
-
A/P: Patient is a 74y F with PMH significant for seizure disorder, frequent falls and prior SDH who presents to ED from local [place] for evaluation of weakness and N/V.
GI Bleed
Acute Blood Loss Anemia secondary to the above
- Admit for further evaluation and treatment.
- Patient with decrease in Hgb from recent 12g/dL to 6.5 today.
- Pale appearing and with recent black stools, GI distress and N/V (non-bloody emesis).
- IV PPI started in the ED.
- Transfusion ordered - follow H&H and provide additional blood products as needed.
- Hold Plavix.
- GI evaluation for additional recommendations / probable endoscopic examination(s).
Seizure Disorder / Recent Status Epilepticus
- Patient with good eye contact, follows commands, etc - though not at baseline according to sister.
- Continue Keppra via IV route given GI issues.
- Ativan PRN for any evident seizure activity.
- Sister reports regular use of Librium for 30+ years. Note that this does not appear in any medication list here dating back to 2020.
- Given recent hospitalization / SNF stay - patient has been off of this for at least 4 weeks now. Would not resume.
- PRN Ativan as noted above.
- Consider Neurology evaluation / input if evidence of recurrent seizure activity.
CKD III
- Stable. Renal function is at / near known baseline. Follow for changes.
Senile Dementia
ASCVD / History of CVA
- Hold Plavix acutely as noted above.
- Follow for acute delirium / agitation / etc.
- Monitor for any new / focal neurologic complaints.
DVT Prophylaxis: SCDs
Code Status: DNR
[2025-03-16] MEDS: NSS 500 IV (03:42)
--- NOTE | 2025-03-16 05:48 | W.PN.UPDATE ---
Update Note
Progress Note Update
Patient is hypotensive with SBP 80s-90s, afebrile, hr 91, SPO2 95% on RA. Patient had large bloody BM. Abdomen soft, slightly distended during the exam, normal bowel sounds.
Currently is receiving 1st unit of blood, will give NSS IV bolus then continue with maintenance IVF.
CTA abdomen ordered after blood received and bp stabilized.
[2025-03-16] MEDS: NSS IV ×2 (07:35→11:10)
--- NOTE | 2025-03-16 07:50 | PTCARENOTE ---
Vitals from overnight not saved by prior RN. Saved at this time but can't verify the accuracy of these as I did not enter the unit until 0645.
[2025-03-16] MEDS: KEPPRA 1000 MG IV ×2 (08:43→21:34)
[2025-03-16 10:12] LABS: Hematocrit 26.9 % (37.0-47.0); Hemoglobin 9.0 g/dL (12.0-16.0)
--- NOTE | 2025-03-16 10:41 | W.PN.HOSP.TC ---
Today's Communication/Plan
-
IV PPI drip
N.p.o. pending GI
Supportive transfusions as needed
Assessment / Plan
Assessment / Plan
#Acute blood loss anemia with symptoms
#Upper GI bleed
-Differentials include PUD/gastritis, vascular lesions, malignancy; exacerbated by Plavix; symptomatically fatigued
-Recent Hgb drop from 12-6.5, melena reported; BP soft though otherwise hemodynamically stable
-2 units of PRBC ordered on arrival, Plavix was held, started on IV PPI gtt.; fairly high GBS score
-GI consulted for likely EGD and possible colonoscopy; remains n.p.o.
-Continue IV PPI drip, hold Plavix and chemical AC, trend CBC
-Transfuse PRBC for hemoglobin <7 or symptom presence
-Avoid NSAIDs
#Epilepsy
#Recent hospitalization for status epilepticus
-Reportedly had status on recent hospital stay, required 4 AEDs, ultimately DC'd on Keppra
-No signs of seizure activity at this time though mental status makes neurologic exam difficult
-Continue with home regimen and monitor for seizure activity
#CKD stage IIIb
-Baseline creatinine near 1.3; no known systemic complications
-Renal function stable here, patient fairly euvolemic despite blood loss
-Trend BMP, monitor urine output
#Primary hypertension
-Likely associated with previous lacunar infarcts
-Home regimen includes propranolol 20 mg twice daily
-BP currently well-controlled
#Presumed vascular dementia
#H/O ischemic and hemorrhagic CVA
-Unclear etiology of events, regimen includes high intensity statin and Plavix
-Holding Plavix as above for upper GI bleeding
-No signs of acute neurologic deficits
Diet: N.p.o. pending GI eval
DVT prophylaxis: SCDs
CODE STATUS: DNR
Anticipated Discharge: > 48 hours
Subjective/Interval History
-
Date of Service: March 16, 2025
Seen and examined at the bedside. No acute events reported overnight. AFVSS
ROS limited by baseline dementia
Received 2 units PRBC since admission, repeat hemoglobin pending
Objective Data
-
Labs:
Laboratory Results
03/15/25 03/16/25 03/16/25
22:32 01:49 09:42
WBC 12.9 H
Hgb 6.5 L* Pending 9.0 L D
Hct 19.5 L* Pending 26.9 L
Plt Count 242
Sodium 138 Pending
Potassium 4.5 Pending
Chloride 111 H Pending
Carbon Dioxide 21 L Pending
BUN 44 H Pending
Creatinine 1.4 H Pending
Glucose 115 H Pending
Calcium 8.8 Pending
Total Bilirubin 0.3
AST 12 L
ALT < 10
Alkaline Phosphatase 45
03/16/25 03/16/25
13:49 19:49
WBC
Hgb Pending Pending
Hct Pending Pending
Plt Count
Sodium
Potassium
Chloride
Carbon Dioxide
BUN
Creatinine
Glucose
Calcium
Total Bilirubin
AST
ALT
Alkaline Phosphatase
Vital Signs:
Vital Signs
Temp Pulse Resp BP Pulse Ox
98.6 F 95 20 154/87 94
03/16/25 09:52 03/16/25 09:52 03/16/25 09:52 03/16/25 09:52 03/16/25 02:35
I&O
03/15/25 03/16/25 03/17/25
06:59 06:59 06:59
Intake Total 250 / 250 250 / 250
Balance 250 / 250 250 / 250
Review of Systems
-
Unable to obtain full review of systems at this time due to: Dementia
Physical Exam
-
General: Well Developed, No Apparent Distress, Appears Chronically Ill and Other (Thin and frail)
HEENT: Normocephalic, Atraumatic, Moist Mucous Membranes and Anicteric
Respiratory: Clear to Auscultation and Non Labored Respirations; Negative Accessory Resp Muscle Use
Cardiac: Regular Rhythm and S1/S2; Negative Murmur, Rub or Gallop
GI: Soft, Nontender, Nondistended and Normal Bowel Sounds
Musculoskeletal: No Clubbing, No Cyanosis and No Edema
Skin: Warm, Dry and Other (Pallor present); Negative Rash
Neuro: Awake and Other (Limited by baseline mental status, no obvious new FND)
Psych: Calm
Data Reviewed
-
Labs: Labs Reviewed by me and Discussed with Patient
[2025-03-16 10:44] LABS: Blood Urea Nitrogen 41 mg/dl (7-17); Calcium 7.3 mg/dl (8.4-10.2); Carbon Dioxide 19 mmol/L (22-30); Chloride 118 mmol/L (98-107); Estimated Creatinine Clearance 28 ml/min; Glucose 104 mg/dl (70-99); Potassium 4.6 mmol/L (3.5-5.1); Sodium 141 mmol/L (135-145); eGFR 39.73
--- NOTE | 2025-03-16 10:53 | CON.GI ---
Addendum entered and electronically signed by Nura Johnson MD 03/16/25 13:21:
I saw and examined the patient.
The THERMODYNAMICS TEACHER's note was reviewed and I agree with the note.
Impression:
Acute GI bleed- Melena with some maroon
Hx CVA on Plavix dementia
History of seizure disorder
CKD stage III
plan
patient is going for CTA now
Will plan EGD based on CTA findings
hold plavix
continue monitor H/H
PPI drip
Original Note:
Consultation
-
Date/Time Consultation Requested: 03/16/25 0149
Date/Time Consultation Performed: 03/16/25 1015
Requesting Provider: Dr. Carty
Performing Provider: Dr. Johnson/CLAUDIA Peres
Reason for Consultation: GI Bleed
Medical History
Chief Complaint / HPI
Chief Complaint: melena
History of Present Illness:
74-year-old female with past medical history of ischemic stroke/lacunar infarcts, subdural hematoma (December 2024) dementia, seizure disorder, CKD stage III, hypertension, hyperlipidemia, osteoporosis, anxiety/depression, colon polyps who is currently
in a [facility] recently discharged on 02/27/2025 after acute encephalopathy with status epilepticus. Discussed with patient's sister. She states that while at [facility] she has been having vomiting. Also has been having melena as she noted
her sister has had black stool on her underwear. The patient's sister thought that this may have been associated with something they were giving her while in the [facility]. She was sent to the emergency room. We are asked to evaluate for acute
GI bleed. There she was found to have a hemoglobin of 6.5 down from 12.1 on 02/26/2025. The patient had melena. She also had maroon-tinged stool as well. She was transfused 2 units of packed red blood cells with hemoglobin coming up to 9.0. When
I saw her at bedside she had active melena with a maroon tinge to it as well. She was going to go for a urgent CTA of the abdomen and pelvis. The patient had tenderness in the epigastric area upon palpation. She is pale. I did discuss with
sister at bedside about EGD today diagnostic as she is on Plavix. She is agreeable. Will obtain stat CTA of the abdomen and pelvis first. Then we will proceed with EGD after.
Past Medical History
Past Medical History: Other (CVA, subdural hematoma, dementia, seizure disorder, CKD, hypertension, hyperlipidemia, osteoporosis, anxiety/depression, colon polyps)
Past Surgical History: Other (Hysterectomy)
Social History
Tobacco: Non-Smoker
Alcohol: None
Drug: None
Living: [facility]
Family History
Family History: Other (No family history of gastrointestinal malignancy or IBD)
Allergies / Home Medications
Allergy/AdvReac Type Severity Reaction Status Date / Time
No Known Allergies Allergy Verified 02/17/25 20:21
�Medication �Instructions �Recorded
pantoprazole 40 mg tablet,delayed 40 mg PO DAILY Gastrointestinal 03/04/21
release issue
atorvastatin 40 mg tablet 40 mg PO HS High cholesterol 01/28/22
clopidogrel 75 mg tablet (Plavix) 75 mg PO HS Blood Clot 03/10/22
Prevention/Tx
therapeutic multivitamin 1 tab PO DAILY Supplement 12/29/23
propranolol 20 mg tablet 20 mg PO BID Blood Pressure 10/31/24
sennosides 8.6 mg-docusate sodium 1 tab PO BID #0 tabs 02/27/25
50 mg tablet
bisacodyl 10 mg rectal suppository 10 mg [place] DAILY PRN constipation 03/16/25
(Dulcolax (bisacodyl))
escitalopram oxalate 10 mg tablet 10 mg PO DAILY 03/16/25
levetiracetam 100 mg/mL oral 1,000 mg PO BID 03/16/25
solution
magnesium hydroxide 400 mg/5 mL 30 ml PO DAILY PRN constipation 03/16/25
oral suspension (Milk of Magnesia)
Review of Systems
-
Unable to obtain full review of systems at this time due to: Patient Non Verbal
Vital Signs
Temp Pulse Resp BP Pulse Ox
98.6 F 95 20 154/87 94
03/16/25 09:52 03/16/25 09:52 03/16/25 09:52 03/16/25 09:52 03/16/25 02:35
Physical Exam
Exam
General: Other (Pale, comfortable appearing)
HEENT: Anicteric
Respiratory: Clear (Anterior)
Cardiac: Regular Rhythm
GI: Soft, Non Distended, Normal Bowel Sounds and Tender (Epigastric tenderness)
Skin: Warm and Dry
Neuro: Awake and Alert
Psych: Other (Nonverbal)
Results
WBC 12.9 10^3/uL (4.8-10.8) H 03/15/25 22:32
Hgb 9.0 g/dL (12.0-16.0) L D 03/16/25 09:42
Hct 26.9 % (37.0-47.0) L 03/16/25 09:42
MCV 91.5 fL (81.0-99.0) 03/15/25 22:32
Plt Count 242 10^3/uL (130-400) 03/15/25 22:32
Absolute Neuts (auto) 8.5 10^3/uL (1.4-6.5) H 03/15/25 22:32
Sodium 141 mmol/L (135-145) 03/16/25 09:42
Potassium 4.6 mmol/L (3.5-5.1) 03/16/25 09:42
Chloride 118 mmol/L (98-107) H 03/16/25 09:42
Carbon Dioxide 19 mmol/L (22-30) L 03/16/25 09:42
BUN 41 mg/dl (7-17) H 03/16/25 09:42
Creatinine 1.4 mg/dL (0.6-1.0) H 03/16/25 09:42
Calcium 7.3 mg/dl (8.4-10.2) L D 03/16/25 09:42
Total Bilirubin 0.3 mg/dl (0.2-1.3) 03/15/25 22:32
AST 12 U/L (14-36) L 03/15/25 22:32
ALT < 10 U/L (0-35) 03/15/25 22:32
Alkaline Phosphatase 45 U/L (38-126) 03/15/25 22:32
Lipase 266 U/L (23-300) 03/15/25 22:32
Diagnostic Image Results:
Patient currently going down for CTA abdomen pelvis
Prior GI Procedures:
EGD: 08/23/2019 - Normal esophagus.
- Z-line regular, 37 cm from the incisors.
- Three gastric polyps. Resected and retrieved.
- Otherwise normal stomach. Biopsied for H pylori.
- Normal duodenal bulb and second portion of the
duodenum.
Colonoscopy: 01/17/2020:
- Preparation of the colon was fair. Stool in the entire
examined colon. Lavaged.
- One 1 mm polyp in the ascending colon, removed with a
jumbo cold forceps. Resected and retrieved.
- Cecum was evaluated, and no residual polyp noted at
prior polypectomy site.
- Diverticulosis in the sigmoid colon, in the descending
colon, in the transverse colon and in the ascending
colon.
- Non-bleeding internal hemorrhoids. Repeat colonoscopy recommended 1 year

Colonoscopy 08/23/2019:
- One 10 mm polyp in the cecum, removed piecemeal using
a cold snare. Resected and retrieved.
- Two 2 mm polyps in the ascending colon, removed with a
jumbo cold forceps. Resected and retrieved.
- One 2 mm polyp in the transverse colon, removed with a
jumbo cold forceps. Resected and retrieved.
- One 5 mm polyp in the descending colon, removed with a
cold snare. Resected and retrieved. Clips (MR
conditional) were placed.
- Diverticulosis in the sigmoid colon.
- Non-bleeding internal hemorrhoids.
Assessment / Plan
-
74-year-old female with past medical history of ischemic stroke/lacunar infarcts, subdural hematoma (December 2024) dementia, seizure disorder, CKD stage III, hypertension, hyperlipidemia, osteoporosis, anxiety/depression, colon polyps who is currently
in a [facility] recently discharged on 02/27/2025 after acute encephalopathy with status epilepticus. Discussed with patient's sister. She states that while at [facility] she has been having vomiting. Also has been having melena as she noted
her sister has had black stool on her underwear. The patient's sister thought that this may have been associated with something they were giving her while in the [facility]. She was sent to the emergency room. We are asked to evaluate for acute
GI bleed. Patient with a he presented hemoglobin of 6.5 , down from 12.1 on 02/26/2025. She was transfused 2 units of packed red blood cells with hemoglobin going up to 9.0.vital signs stable although she is still passing melena from below with
some maroon tinge to it. Has epigastric tenderness on palpation. Patient is nonverbal. On Plavix 75 mg daily for history of CVA. On pantoprazole 40 mg daily. Discussed with patient's sister who is her power of senior business intelligence analyst. Gives permission for
diagnostic EGD. Patient is going down for CTA of abdomen and pelvis as she was having vomiting prior to admission.
Impression:
Acute GI bleed
Melena with some maroon
Hx CVA on Plavix dementia
History of seizure disorder
CKD stage III
Plan:
-Hgb 9.0, repeat pending
-CTA Abd pelvis
-EGD (on plavix) after CTA likely
-Transfuse to keep Hgb > 8.0
-Continue Pantoprazole gtt
-Allison POWERS [phone]
-
-
Thank you for consultation and allowing me to participate in the patient's care. Please call the service consultant GI physician during the after hours with any questions or concerns.
--- NOTE | 2025-03-16 11:40 | CM ---
Patient seen at bedside in IMU with sister and POA, Jonh. Patient has been staying at [facility] and plan per family is for her to return there for continuing restorative therapy. Patient Niece indicated that she has a poa but form is not on
chart for last 3 hospitalizations. CM will request updated document. Patient family would like patient to return to SNF when medically appropriate as the facility is close to sister and sister has been going for every meal to assist patient. Patient
was able to speak prior to discharge but per family has not been able to have medications as she has been throwing up frequently. CM spoke with Liaison and requested call back to clarify patient status. CM will send updated clinicals to SNF for
follow up. CM will continue to follow for discharge planning needs.
Plan; SNF; return to [facility] pending medical treatment plan and bed availability.
[2025-03-16 14:29] LABS: Hematocrit 25.7 % (37.0-47.0); Hemoglobin 8.8 g/dL (12.0-16.0)
--- NOTE | 2025-03-16 15:00 | PTCARENOTE ---
Post endoscopy patient had large melena stool. Vitals stable. Had just drawn repeat H&H which came back 8.8. Notified attending provider Dr. Fisher.
Patient also has not had any urinary output this shift. Bladder Scan for > 471mL. Straight Cath x 1 for 300mL (patient could have slightly voided when having BM).
[2025-03-16 20:18] LABS: Hematocrit 24.2 % (37.0-47.0); Hemoglobin 8.4 g/dL (12.0-16.0)
[2025-03-16] MEDS: NSS 1000 IV (21:46)
[2025-03-17] VITALS (46 sets, daily range): BP systolic 105–163; BP diastolic 58–116; BMI 19.5
--- NOTE | 2025-03-17 00:35 | PTCARENOTE ---
Assumed care of pt from eulalio DYKES. H&H sent per orders, hgb reading 8.4. no active signs of bleeding at this time. NSR on monitor. remains pale in coloring. N/S infusing @ 100 ml/hr. assessment as documented. call light in reach.
[2025-03-17 04:12] LABS: Hematocrit 23.9 % (37.0-47.0); Hemoglobin 8.0 g/dL (12.0-16.0); Mean Corp Hgb Conc. 33.5 g/dL (33.0-37.0); Mean Corpuscular Volume 90.9 fL (81.0-99.0); Nucleated Red Blood Cells % 0 %; Platelet Count 138 10^3/uL (130-400); Red Cell Dist. Width 14.2 % (11.5-14.5)
[2025-03-17 04:46] LABS: Blood Urea Nitrogen 33 mg/dl (7-17); Calcium 7.5 mg/dl (8.4-10.2); Carbon Dioxide 19 mmol/L (22-30); Chloride 124 mmol/L (98-107); Estimated Creatinine Clearance 28 ml/min; Glucose 100 mg/dl (70-99); Potassium 4.5 mmol/L (3.5-5.1); Sodium 146 mmol/L (135-145); eGFR 39.73
[2025-03-17] MEDS: PROTONIX IV (07:58)
[2025-03-17] MEDS: NSS 1000 IV (08:02)
[2025-03-17] MEDS: KEPPRA 1000 MG IV ×2 (08:04→20:07)
--- NOTE | 2025-03-17 09:49 | W.PN.HOSP.TC ---
Today's Communication/Plan
-
IV fluids
IV PPI drip
Hold anticoagulation
Trend CBC
Consider CLD if passes speech eval
GOC discussions with POA
Assessment / Plan
Assessment / Plan
#Acute blood loss anemia with symptoms
#Upper GI bleed
-Differentials include PUD/gastritis, vascular lesions, malignancy; exacerbated by Plavix; symptomatically fatigued
-Recent Hgb drop from 12-6.5, melena reported; BP soft though otherwise hemodynamically stable
-2 units of PRBC ordered on arrival, Plavix was held, started on IV PPI gtt.; fairly high GBS score
-GI consulted for likely EGD and possible colonoscopy; remains n.p.o.
-Continue IV PPI drip, hold Plavix and chemical AC, trend CBC
-Transfuse PRBC for hemoglobin <7 or symptom presence
-Consider starting CLD if she passes speech eval, IVF for now
-Avoid NSAIDs
#Epilepsy
#Recent hospitalization for status epilepticus
-Reportedly had status on recent hospital stay, required 4 AEDs, ultimately DC'd on Keppra
-No signs of seizure activity at this time though mental status makes neurologic exam difficult
-Continue with home regimen and monitor for seizure activity
#CKD stage IIIb
-Baseline creatinine near 1.3; no known systemic complications
-Renal function stable here, patient fairly euvolemic despite blood loss
-Trend BMP, monitor urine output
#Primary hypertension
-Likely associated with previous lacunar infarcts
-Home regimen includes propranolol 20 mg twice daily
-BP currently well-controlled
#Presumed vascular dementia
#H/O ischemic and hemorrhagic CVA
-Unclear etiology of events, regimen includes high intensity statin and Plavix
-Holding Plavix as above for upper GI bleeding
-No signs of acute neurologic deficits
Diet: NPO for now
DVT prophylaxis: SCDs
CODE STATUS: DNR
Anticipated Discharge: > 48 hours
Subjective/Interval History
-
Date of Service: March 17, 2025
Seen and examined at the bedside. No acute events reported overnight. AFVSS this morning
Hgb trend 9.0�8.8�8.4�8.0. EGD yesterday with nonbleeding duodenal ulcers. Had melenic stool yesterday
ROS limited by dementia, states she does have abdomen pain
Objective Data
-
Labs:
Laboratory Results
03/17/25
03:43
WBC 7.9
Hgb 8.0 L
Hct 23.9 L
Plt Count 138 D
Sodium 146 H
Potassium 4.5
Chloride 124 H
Carbon Dioxide 19 L
BUN 33 H
Creatinine 1.4 H
Glucose 100 H
Calcium 7.5 L
Vital Signs:
Vital Signs
Temp Pulse Resp BP Pulse Ox
98.2 F 62 14 105/58 93
03/17/25 07:33 03/17/25 09:30 03/17/25 09:30 03/17/25 09:30 03/17/25 01:21
I&O
03/16/25 03/17/25 03/18/25
06:59 06:59 06:59
Intake Total 250 / 250 250 / 250
Output Total 300 / 300
Balance 250 / 250 -50 / -50
Review of Systems
-
Unable to obtain full review of systems at this time due to: Dementia
History Source: Patient
All other systems: Reviewed and negative
Physical Exam
-
General: Well Developed, No Apparent Distress, Appears Chronically Ill and Cachectic
HEENT: Normocephalic, Atraumatic, Moist Mucous Membranes and Anicteric
Respiratory: Clear to Auscultation and Non Labored Respirations; Negative Accessory Resp Muscle Use
Cardiac: Regular Rhythm and S1/S2; Negative Murmur, Rub or Gallop
GI: Soft, Nondistended, Normal Bowel Sounds and Tender (Mildly, no peritoneal findings)
Musculoskeletal: No Clubbing, No Cyanosis and No Edema
Skin: Warm and Dry; Negative Rash
Neuro: Awake, Alert, Nonfocal/Grossly Intact and Central Nerve's Intact; Negative Oriented
Psych: Calm
[2025-03-17] MEDS: PROTONIX 100 IV (10:25)
--- NOTE | 2025-03-17 11:07 | PTOTSP ---
Speech Therapy Evaluation
Pt seen for bedside swallow assessment. Pt is currently NPO. RN noted pt can only be cleared for clear liquids due to GI bleed. Pt managed sips of thin liquids using a straw and cup with no overt s/sx of aspiration. Cannot rule out silent aspiration
at bedside. ST will need to re-assess trials of solids when pt is cleared by gastroenterology. Pt with acute risk of aspiration given history of oropharyngeal dysphagia (VSE 03/12/21 mod oral, mild pharyngeal dysphagia with dysphagia 2 diet with thins
liquids), dementia, chronic CVA, limited ambulation. Pt unable to communicate wants or needs due to baseline dementia and language impairment.
Recommend:
1. IDDSI 0 (Thin liquids)
2. Close supervision
3. Standard aspiration precautions
4. Oral care 3x/day
5. Assess PO trials of solids when cleared by GI
--- NOTE | 2025-03-17 12:52 | W.PN.GI.CBS2 ---
Today's Communication / Plan
-
Clear liquid diet. Okay to advance as tolerated if stable
Continue monitor H&H
Assessment / Plan
-
74-year-old female with past medical history of ischemic stroke/lacunar infarcts, subdural hematoma (December 2024) dementia, seizure disorder, CKD stage III, hypertension, hyperlipidemia, osteoporosis, anxiety/depression, colon polyps who is currently
in a jail recently discharged on 02/27/2025 after acute encephalopathy with status epilepticus. Discussed with patient's sister. She states that while at [place] [facility] she has been having vomiting. Also has been having melena as she noted
her sister has had black stool on her underwear. The patient's sister thought that this may have been associated with something they were giving her while in the jail. She was sent to the emergency room. We are asked to evaluate for acute
GI bleed. Patient with a he presented hemoglobin of 6.5 , down from 12.1 on 02/26/2025. She was transfused 2 units of packed red blood cells with hemoglobin going up to 9.0.vital signs stable although she is still passing melena from below with
some maroon tinge to it. Has epigastric tenderness on palpation. Patient is nonverbal. On Plavix 75 mg daily for history of CVA. On pantoprazole 40 mg daily. Discussed with patient's sister who is her power of assistant attorney general. Gives permission for
diagnostic EGD. Patient is going down for CTA of abdomen and pelvis as she was having vomiting prior to admission.
Impression:
Melena / Acute UGI bleed - CTA negative for active bleeding. s/p EGD 03/16 -multiple cratered nonbleeding duodenal ulcers with no stigmata.
Hx CVA on Plavix
dementia
History of seizure disorder
CKD stage III
Plan:
- No further bleeding. Hb stable. Okay to start on clear liquid diet if cleared by speech and advance as tolerated
- Continue to monitor H&H
- Will switch to Protonix IV twice daily
- Hold Plavix for 1 week with significant GI bleed. Medical team to consider benefits and risk on restarting
- Patient's niece would like to hold off on future invasive testing including colonoscopy
- GOC discussion as per medical team
- No further GI recommendation at this point.. will Sign off. Please call us back if any questions
Total Time Spent with Patient (in minutes): 35
Subjective
Subjective
Date of Service: March 17, 2025
No further bleeding. Stools brown with tinge of old blood as per nursing
Objective
Data Reviewed
Laboratory Data:
Laboratory Results
03/17/25 03:43
03/17/25 03:43
Laboratory Results
Total Bilirubin 0.3 mg/dl (0.2-1.3) 03/15/25 22:32
AST 12 U/L (14-36) L 03/15/25 22:32
ALT < 10 U/L (0-35) 03/15/25 22:32
Alkaline Phosphatase 45 U/L (38-126) 03/15/25 22:32
Lipase 266 U/L (23-300) 03/15/25 22:32
Vital Signs and I&O:
Vital Signs
Temp Pulse Resp BP Pulse Ox
98.2 F 78 14 111/59 93
03/17/25 07:33 03/17/25 10:00 03/17/25 10:00 03/17/25 10:00 03/17/25 01:21
I&O
03/16/25 03/17/25 03/18/25
06:59 06:59 06:59
Intake Total 250 / 250 250 / 250
Output Total 300 / 300
Balance 250 / 250 -50 / -50
Physical Exam
Physical Exam
GI: Soft, Non Distended and Non Tender
--- NOTE | 2025-03-17 14:36 | PTCARENOTE ---
Patient confused, only oriented to self. Saying very few words. Patient with no complaints. Abdomen distended but soft. Q2T. Plan for CLD today. Protonix gtt DC'd. Sister at bedside. VSS. Continuing to closely monitor.
--- NOTE | 2025-03-17 14:48 | CM ---
Addendum entered by Vi Mejia 03/17/25 15:02:
Sister requested referral to [facility] and [facility]. But sister is aware that patient also is accepted to return to [place] if family is unable to locate a SNF that she would be comfortable with. CM will continue to follow for discharge planning
needs.
Plan SNF; pending bed availability
Original Note:
Per nursing patient sister now does not want patient to return to [facility], CM will reach out to family and request options. POA form is not on the chart at this time, CM will also ask for POA. CM will continue to follow for discharge planning
needs.
Plan; SNF
--- NOTE | 2025-03-17 20:00 | PTCARENOTE ---
Received pt from previous shift. Systems reviewed, see flowsheets. Pt able to state her name and that she's in the hospital. She denies pain at this time. NSR to ST on the heart monitor, 90s-100s. Lungs clear on RA, SaO2 95%. Q4h neuro checks
observed. SCDs in place. Will continue to monitor.
[2025-03-17] MEDS: PROTONIX IV 40 MG IV (20:08)
[2025-03-17] MEDS: NSS (PRESERVATIVE FREE) 10 ML IV (20:08)
[2025-03-18] VITALS (42 sets, daily range): BP systolic 72–163; BP diastolic 40–118; PULSE 68–72; O2SAT 96; BMI 18.9
[2025-03-18 04:38] LABS: Hematocrit 21.9 % (37.0-47.0); Hemoglobin 7.1 g/dL (12.0-16.0); Mean Corp Hgb Conc. 32.4 g/dL (33.0-37.0); Mean Corpuscular Volume 92.0 fL (81.0-99.0); Nucleated Red Blood Cells % 0 %; Platelet Count 131 10^3/uL (130-400); Red Cell Dist. Width 14.3 % (11.5-14.5)
[2025-03-18 04:55] LABS: Blood Urea Nitrogen 22 mg/dl (7-17); Calcium 7.8 mg/dl (8.4-10.2); Carbon Dioxide 19 mmol/L (22-30); Estimated Creatinine Clearance 28 ml/min; Glucose 94 mg/dl (70-99); Potassium 3.9 mmol/L (3.5-5.1); Sodium 141 mmol/L (135-145); eGFR 39.73
[2025-03-18 05:01] LABS: Chloride 120 mmol/L (98-107)
[2025-03-18] MEDS: NSS (PRESERVATIVE FREE) 10 ML IV ×2 (07:48→20:35)
[2025-03-18] MEDS: PROTONIX IV 40 MG IV ×2 (07:48→20:35)
[2025-03-18] MEDS: KEPPRA 1000 MG IV ×2 (07:48→20:33)
--- NOTE | 2025-03-18 08:09 | W.PN.HOSP.TC ---
Today's Communication/Plan
-
see A/P
Assessment / Plan
Assessment / Plan
# Acute blood loss anemia with symptoms
# Upper GI bleed
exacerbated by Plavix; symptomatically fatigued
baseline Hgb at 12, admission Hgb at 6.5
s/p 2 units of PRBC transfusion
Hgb improved to 9, now trickling down to 7.1, transfuse another unit today
of note, s/p endoscopy 03/16, noted many non-bleeding duodenal ulcers
protonix drip -> IV BID
cont to hold plavix, avoid NSAID
Now on clear liquid diet, SPL eval prior to diet advancement
# Epilepsy
# Recent hospitalization for status epilepticus
Reportedly had status on recent hospital stay, required 4 AEDs, ultimately DC'd on Keppra
No signs of seizure activity at this time though mental status makes neurologic exam difficult
Continue with home regimen and monitor for seizure activity
# CKD stage IIIb
baseline creatinine near 1.3; no known systemic complications
Renal function stable here, patient fairly euvolemic despite blood loss
Trend BMP, monitor urine output
# Primary hypertension
Likely associated with previous lacunar infarcts
Home regimen includes propranolol 20 mg twice daily
BP currently well-controlled
# Presumed vascular dementia
# H/O ischemic and hemorrhagic CVA
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
Holding Plavix as above for upper GI bleeding
No signs of acute neurologic deficits
Pt is awake, slow to respond to questions, orientated to year and place
Diet: clears, ADAT
DVT prophylaxis: SCDs
CODE STATUS: DNR
DW RN
DW GI
updated sister POA on the phone
total time spent 51 min
Anticipated Discharge: 24 - 48 hours
Subjective/Interval History
-
Date of Service: March 18, 2025
Objective Data
-
Labs:
Laboratory Results
03/18/25
04:16
WBC 7.7
Hgb 7.1 L
Hct 21.9 L
Plt Count 131
Sodium 141
Potassium 3.9
Chloride 120 H
Carbon Dioxide 19 L
BUN 22 H
Creatinine 1.4 H
Glucose 94
Calcium 7.8 L
Vital Signs:
Vital Signs
Temp Pulse Resp BP Pulse Ox
36.8 C 57 14 155/67 97
03/18/25 02:58 03/18/25 06:00 03/18/25 06:00 03/18/25 06:00 03/17/25 23:30
I&O
03/17/25 03/18/25 03/19/25
06:59 06:59 06:59
Intake Total 250 / 250
Output Total 300 / 300
Balance -50 / -50
Review of Systems
-
Unable to obtain full review of systems at this time due to: Dementia
Physical Exam
-
General: Well Developed, No Apparent Distress, Comfortable, Appears Chronically Ill and Cachectic
HEENT: Normocephalic, Atraumatic and Moist Mucous Membranes
Respiratory: Clear to Auscultation and Non Labored Respirations; Negative Accessory Resp Muscle Use
Cardiac: Regular Rhythm and S1/S2; Negative Murmur, Rub or Gallop
GI: Soft, Nontender, Nondistended and Normal Bowel Sounds
Musculoskeletal: No Clubbing, No Cyanosis and No Edema
Skin: Warm and Dry; Negative Rash
Neuro: Awake and Alert; Negative Oriented
Psych: Calm and Apparent Dementia
Data Reviewed
-
Labs: Labs Reviewed by me, Discussed with Physician and Discussed with Nurse
--- NOTE | 2025-03-18 13:56 | PTCARENOTE ---
Unit of PRBC's completed with no s/s of reaction. Pt now comfortable. Family at bedside.
[2025-03-18] MEDS: LASIX 20 MG IV (14:28)
--- NOTE | 2025-03-18 22:45 | PTCARENOTE ---
Resumed care of pt laying in bed AAOx2, forgetful to time. Pt able to make needs known. Tremors noted. Bed alarm in place. Pt with intermittent garbled speech. Hr in the 60's in NSR on the monitor, with periods of tachycardia in the 120's. POX 98%
on RA. lungs dec at bases. Course on left. + bowel. Pt using bed portillo when needed, urinating clear urine. Angelic care provided. Pt with scattered bruising t/o body. pale skin. Left UE Int capped. Call shepard in place. Will continue to monitor.
--- NOTE | 2025-03-18 23:26 | W.PN.UPDATE ---
Update Note
Progress Note Update
~ 23:00 Asked to see patient for rapid onset tachycardia, HR 120', BP 80/40's, patient pale. Per RN, patient has not had any bowel movements this shift.
Ordered 1L NSS bolus, BP not improved, started on Levophed gtt. Ordered H&H, Hgb 7.1, ordered 2 units PRBCs.
Patient then actively started bleeding, filled 2 bed pans of blood. Ordered CT angio Abd/Pelvis, stat. RN to take when BP stabilized.
TT/called irrigation equipment remover GI, Dr. Johnson, reviewed events and he is in agreement to get stat CT Abd/Pelvis Angio. Pending results of CT Abd/Pelvis, may need to consult IR.
Called and spoke to patient's sister, Allison CancholaGIO, to updated on events. She stated that they just doesn't want the patient to 'be on tubes' but are ok with medications, imaging. Patient's sister is on her way to the hospital.
Patient needed increased blood pressure support on Levophed, transferred to ICU. Discussed with ICU VENDOR RELATIONSHIP MANAGER, who is in agreement with transfer.
Patient's sister, Allison and patient's nieces at bedside and updated on plan of care.
[2025-03-18 23:32] LABS: Hematocrit 20.9 % (37.0-47.0); Hemoglobin 7.1 g/dL (12.0-16.0)
[2025-03-18] MEDS: NSS 1000 IV (23:32)
[2025-03-18] MEDS: LEVOPHED 250 IV (23:33)
--- NOTE | 2025-03-18 23:36 | PTCARENOTE ---
Pt with abrupt onset tachycardia, HR 120's. BP also dropping, initially in the 90's then into the 70's. Oracio BENEFITS ADMINISTRATOR at bedside. IVF bolus in fusing. Levophed started. Pt placed on bedpan, pt having liquid bloody stools. H&H sent and results
obtained. Oracio contacting family to discuss further plan of care. Will monitor closely.
[2025-03-19] VITALS (101 sets, daily range): BP systolic 56–183; BP diastolic 32–111; BMI 19.2
--- NOTE | 2025-03-19 | PTCARENOTE ---
First unit of blood infusing. Pt transported to and from CT as ordered. Pt had 3 bedpans full of liquid burgundy stool. Pt requiring >8mcg/min of Levophed. Pt transferred to ICU level care. Gini DYKES to resume care. Family at bedside updated on
current plan of care. Awaiting CT results.
[2025-03-19 01:31] LABS: Glucose - Point of Care 176 mg/dl (70-99)
[2025-03-19 01:59] LABS: INR 1.63; PT 19.6 Sec (11.4-14.6)
[2025-03-19 02:00] LABS: APTT 23.7 Sec (23.4-35.0)
[2025-03-19 02:09] LABS: Blood Urea Nitrogen 25 mg/dl (7-17); Calcium 6.0 mg/dl (8.4-10.2); Carbon Dioxide 11 mmol/L (22-30); Chloride 120 mmol/L (98-107); Estimated Creatinine Clearance 32 ml/min; Glucose 184 mg/dl (70-99); Magnesium 1.1 mg/dl (1.6-2.3); Potassium 4.2 mmol/L (3.5-5.1); Sodium 139 mmol/L (135-145); eGFR 47.80
--- NOTE | 2025-03-19 03:00 | W.PN.UPDATE ---
Update Note
Progress Note Update
03/19/25
0215- Results of Ct angio given to Dr. Santillan, interventional radiologist and Dr. Johnson, correctional program officer. Ct angio- active extravasation from the duodenal bulb. Currently patient requiring 10mcg of Levophed to maintain map >65, heart rate
120-130s, and patient is pale and cold. Plan is for IR to come in for angio now with medical practitioners team. PRBCs are transfusing, electrolytes to be replaced, and will intiate bicarb gtt.
[2025-03-19] MEDS: SODIUM BICARBONATE 50 MEQ IV (03:10)
[2025-03-19] MEDS: MAGNESIUM SULFATE 100 IV (03:10)
[2025-03-19] MEDS: CALCIUM GLUCONATE 290 MG IV (03:24)
--- NOTE | 2025-03-19 03:31 | PTCARENOTE ---
Received pt to ICU room 3358 from IMU at around 0115. Pt arrived with PRBC transfusing and on a Levophed infusion at 10mcg/min. Pt in the process of having a bloody stool at that time and proceeded to have another one about 30 min later (sweetie red
with clots). New 20g PIV placed, labs obtained, results from CTA communicated to ICU NATURAL RESOURCE ECONOMIST who was in contact with both IR and GI providers. Plan for pt to go to IR to address active bleed. Mag rider and Ca++ gluconate riders currently infusing, sodium
bicarb push given, see EMAR for details. 2nd unit of PRBC now transfusing. Report called to IR RN, pt ready to go once consent is obtained.
[2025-03-19 03:34] LABS: Hematocrit 26.6 % (37.0-47.0); Hemoglobin 8.9 g/dL (12.0-16.0)
--- NOTE | 2025-03-19 04:44 | PTCARENOTE ---
Pt taken down to IR at around 0355. 2nd unit of PRBC finished just prior. Sent down on Levophed, Mag rider and Ca++ rider. See med titration flowsheet for details on Levo titrations.
--- NOTE | 2025-03-19 05:11 | W.PN.IRAD.PR ---
Procedure Note
-
No active bleed identified at celiac, common hepatic, and GDA angiography. Empiric coil embolization of the GDA was performed. Mynx closure device deployed R ASSOCIATE site. No immediate complications. Pt hypertensive during procedure.
[2025-03-19] MEDS: PROTONIX 100 IV ×2 (05:45→13:41)
[2025-03-19] MEDS: SODIUM BICARBONATE 1150 MEQ IV (05:45)
[2025-03-19 07:06] LABS: Hematocrit 25.9 % (37.0-47.0); Hemoglobin 9.0 g/dL (12.0-16.0); Mean Corp Hgb Conc. 34.7 g/dL (33.0-37.0); Mean Corpuscular Volume 86.3 fL (81.0-99.0); Platelet Count 85 10^3/uL (130-400); Red Cell Dist. Width 17.3 % (11.5-14.5)
--- NOTE | 2025-03-19 07:09 | PTCARENOTE ---
Pt returned from IR at around 0545, was on 4mcg/min of Levo by end of procedure, able to wean down and turn off by approx 0600. Repeat labs sent. R groin site C/D/I, see post-angiography flowsheet for neurovascular assessment details for RLE. Pt
able to void on bedpan, some blood/clots noted, presumably pt had small BM while urinating but otherwise pt has not had a BM since around 0200. Foam dressing placed on sacrum for non-blanchable redness in two spots. All linens changed upon arrival
back to ICU.
--- NOTE | 2025-03-19 07:23 | CON.INTV ---
Addendum entered and electronically signed by Tone Lee MD 03/19/25 19:30:
Patient transitioned to comfort focused care now.
Prize Jacker service will sign off, please call as needed.
Original Note:
Consultation
Consultation Request
Date/Time Consultation Requested: 03/19/2025
Date/Time Consultation Performed: 03/19/2025
Medical History
-
History of Present Illness:
Patient is a 74-year-old female with known history of stroke in the past, subdural hematoma in 2024, dementia, epilepsy and chronic kidney disease who presented from a nursing facility with melena as well as black stools. In the emergency room she
was noted to have significant drop in hemoglobin to 6.5 from 12 about a month ago. She was given 2 units of packed RBCs and was admitted to the hospital service. Subsequently evaluated by GI service. Eagle to be related to Plavix which had been on
hold. Patient subsequently had a CT GI bleed scan which was negative without any active extravasation and a subsequent EGD showed nonbleeding duodenal ulcer without stigmata of bleeding. Overnight, 03/19, patient developed tachycardia, hypotension
became cold and clammy. She was transferred emergently to ICU and required pressor support in addition to fluid resuscitation. Patient had another CT scan which showed active extravasation in the duodenal area. Subsequently IR was called and
patient was emergently taken to IR suite, no active bleeding was noted and patient had empiric embolization of GDA. Prize Jacker consultation was requested in view of shock requiring pressor support.
Past Medical History
Past Medical History: Reports Other
Additional Past Medical History:
Ischemic Stroke / Lacunar Infarcts
Subdural Hematoma - December 2024
Dementia, suspect vascular
Seizure Disorder
CKD Stage IIIB
Essential Hypertension
Hyperlipidemia
Essential Tremor
Osteoporosis
Anxiety / Depression
Past Surgical History: Reports Other
Additional Past Surgical History:
Hysterectomy
Social History
Tobacco: Non-smoker
Drug: None
Living: With Family (Sister)
Family History
Family History: Not pertinent
Allergies / Home Medications
Allergies
Allergy/AdvReac Type Severity Reaction Status Date / Time
No Known Allergies Allergy Verified 02/17/25 20:21
Home Medications
�Medication �Instructions �Recorded �Confirmed �Last Taken �Type
pantoprazole 40 mg tablet,delayed 40 mg PO DAILY Gastrointestinal 03/04/21 03/16/25 10/31/24 History
release issue
atorvastatin 40 mg tablet 40 mg PO HS High cholesterol 01/28/22 03/16/25 10/30/24 History
clopidogrel 75 mg tablet (Plavix) 75 mg PO HS Blood Clot 03/10/22 03/16/25 10/30/24 History
Prevention/Tx
therapeutic multivitamin 1 tab PO DAILY Supplement 12/29/23 03/16/25 10/31/24 History
propranolol 20 mg tablet 20 mg PO BID Blood Pressure 10/31/24 03/16/25 10/31/24 History
sennosides 8.6 mg-docusate sodium 1 tab PO BID #0 tabs 02/27/25 03/16/25 Unknown Rx
50 mg tablet
bisacodyl 10 mg rectal suppository 10 mg AK DAILY PRN constipation 03/16/25 03/16/25 Unknown History
(Dulcolax (bisacodyl))
escitalopram oxalate 10 mg tablet 10 mg PO DAILY Mental 03/16/25 03/16/25 Unknown History
Health/Anxiety
levetiracetam 100 mg/mL oral 1,000 mg PO BID Seizures 03/16/25 03/16/25 Unknown History
solution
magnesium hydroxide 400 mg/5 mL 30 ml PO DAILY PRN constipation 03/16/25 03/16/25 Unknown History
oral suspension (Milk of Magnesia)
Review of Systems
-
Hematologic/Lymphatic: Other (Patient lethargic, appears comfortable not in any distress.)
Vitals / Labs / Diagnostic Testing
Vital Signs
Temp Pulse Resp BP Pulse Ox
98.0 F 113 18 151/97 92
03/19/25 03:46 03/19/25 06:00 03/19/25 06:00 03/19/25 06:00 03/19/25 03:30
Laboratory Results
03/19/25 03/19/25
01:37 06:00
PT 19.6 H Cancelled
INR 1.63 Cancelled
APTT 23.7 Cancelled
Microbiology
03/16/25 09:42 Nose MRSA Screen - Final
No Methicillin Resistant Staphylococcus aureus isolated.
Diagnostic Testing:
Physical Exam
-
HEENT: Normocephalic and Other (Very pale appearing conjunctiva)
Cardiovascular: Other (Tachycardia)
Respiratory: Clear
GI: Soft and Non Distended
Neurology: Other (Lethargic, responds to stimulation)
Skin: Warm
General: Comfortable
Assessment
-
#1. Hemorrhagic shock with Acute upper GI bleed
- Eagle to be related to NSAIDs related duodenal ulcers. EGD (03/16) was suggestive of nonbleeding duodenal ulcer without stigmata of bleeding. Currently on proton pump inhibitor infusion. GI service on case.
- Overnight patient required 10 of Levophed infusion in view of hypotension and tachycardia.
- Hb 12.1 (02/2025) > 6.5 (admission Hb) > 8.0 > 7.1 > 9.0 this AM.
- CT positive for contrast extravasation within the first part of duodenum, s/p emergent IR guided empiric coil embolization of GDA was performed. No active bleeding was noted at celiac, hepatic and GDA angiography.
- 03/19, patient was weaned off Levophed by 6 AM. Around 10 AM, patient again developed hypotension tachycardia and appeared very pale. She also had a brief episode of unresponsiveness with bradycardia,? Vasovagal. Patient was initiated on
Levophed for MAP of 60. In addition stat transfusion 2 units of PRBCs 2 units of FFP and 1 unit of platelet.
- Discussed with IR and GI service.
- Check lactate and venous blood gas
- Maintain wide bore peripheral IVs, monitor closely in the critical care unit
#2. Coagulopathy, transfusion related
- INR mildly elevated at 1.63. Suspect related to large-volume blood transfusion. Patient has received 5 units of PRBCs in the last 24 hours.
- Vit K 10 mg x 1 stat
- Transfuse 2 additional PRBCs stat with 2 units of FFP and 1 unit of platelet. Going forward patient will receive 1 unit of FFP for every PRBC. And 1 unit of platelets for every 6 PRBCs.
Other medical diagnoses:
- Epilepsy. Currently on Keppra, continue
- CKD stage III. At baseline
- Hypertension
- Suspected vascular dementia
- H/o CVA. Plavix currently on hold
Critical Care time 65 mins -- The patient is admitted for acute critical illness for the treatment of vital organ failure and/or prevention of further life-threatening conditions. Total care includes time spent in review of history, physical exam,
medications, hemodynamic/ventilator parameters, laboratory data, imaging and discussion with house staff, pharmacy, respiratory therapy, warp drawer, and nursing.
Data:
CT GI Bleed 03/2025: 1. Contrast extravasation within the first portion of the duodenum, consistent with active gastrointestinal hemorrhage.
2. Small hiatal hernia.
3. Moderate colonic diverticulosis.
4. Renal cortical atrophy.
EGD 03/2025: - Medium-sized hiatal hernia.
- Gastritis, characterized by congestion (edema) and erythema.
- Non-bleeding duodenal ulcers with no stigmata of bleeding.
- Normal second portion of the duodenum.
- No specimens collected.
[2025-03-19 07:52] LABS: Albumin 1.8 g/dl (3.5-5.0); Blood Urea Nitrogen 24 mg/dl (7-17); Calcium 8.5 mg/dl (8.4-10.2); Carbon Dioxide 18 mmol/L (22-30); Chloride 118 mmol/L (98-107); Estimated Creatinine Clearance 32 ml/min; Glucose 138 mg/dl (70-99); Magnesium 3.4 mg/dl (1.6-2.3); Potassium 4.1 mmol/L (3.5-5.1); Sodium 140 mmol/L (135-145); eGFR 47.80
--- NOTE | 2025-03-19 07:55 | W.PN.HOSP.TC ---
Today's Communication/Plan
-
see A/P
Assessment / Plan
Assessment / Plan
# Acute blood loss anemia/ symptomatic anemia
# Upper GI bleed
exacerbated by Plavix; symptomatically fatigued
baseline Hgb at 12, admission Hgb at 6.5
now s/p total 5 units pRBC transfusion
s/p endoscopy 03/16, noted many non-bleeding duodenal ulcers
back on protonix drip
cont to hold plavix, avoid NSAID
back to NPO, need SPL eval when ready to take PO
# Hemorrhagic shock with VETERINARIAN ASSISTANT event 03/19, due to upper GIB
# Leucocytosis could be reactive
CT angio noted Contrast extravasation within the first portion of the duodenum, consistent with active gastrointestinal hemorrhage.
per IR, no active bleed identified at celiac, common hepatic, and GDA angiography. Empiric coil embolization of the GDA was performed.
s/p levophed
Cont protonix drip
Cont current bicarb drip
vit K IV per New Accounts Representative
Cont to trend Hgb, monitor BP/HR
# Epilepsy
# Recent hospitalization for status epilepticus
Reportedly had status on recent hospital stay, required 4 AEDs, ultimately DC'd on Keppra
No signs of seizure activity at this time though mental status makes neurologic exam difficult
Continue with home regimen and monitor for seizure activity
# CKD stage IIIb
baseline creatinine near 1.3; no known systemic complications
Renal function stable here, patient fairly euvolemic despite blood loss
Trend BMP, monitor urine output
# Primary hypertension
Likely associated with previous lacunar infarcts
Home regimen includes propranolol 20 mg twice daily
BP currently well-controlled
# Presumed vascular dementia
# H/O ischemic and hemorrhagic CVA
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
Holding Plavix as above for upper GI bleeding
No signs of acute neurologic deficits
Pt is awake, slow to respond to questions, orientated to year and place
DVT prophylaxis: SCDs
CODE STATUS: DNR
DW RN
updated sister POKaris on the phone
total time spent 51 min
Anticipated Discharge: > 48 hours
Subjective/Interval History
-
Date of Service: March 19, 2025
Objective Data
-
Labs:
Laboratory Results
03/18/25 03/19/25 03/19/25
23:18 01:37 01:38
WBC
Hgb 7.1 L
Hct 20.9 L*
Plt Count
PT 19.6 H
INR 1.63
APTT 23.7
Sodium 139
Potassium 4.2
Chloride 120 H
Carbon Dioxide 11 L*
BUN 25 H
Creatinine 1.2 H
Glucose 184 H
Calcium 6.0 L* D
03/19/25 03/19/25 03/19/25
03:02 06:00 06:42
WBC 15.2 H
Hgb 8.9 L D 9.0 L
Hct 26.6 L 25.9 L
Plt Count 85 L D
PT Cancelled
INR Cancelled
APTT Cancelled
Sodium 140
Potassium 4.1
Chloride 118 H
Carbon Dioxide 18 L
BUN 24 H
Creatinine 1.2 H
Glucose 138 H
Calcium 8.5 D
03/19/25 03/19/25
12:00 18:00
WBC
Hgb Pending Pending
Hct Pending Pending
Plt Count
PT
INR
APTT
Sodium Pending Pending
Potassium Pending Pending
Chloride Pending Pending
Carbon Dioxide Pending Pending
BUN Pending Pending
Creatinine Pending Pending
Glucose Pending Pending
Calcium Pending Pending
Vital Signs:
Vital Signs
Temp Pulse Resp BP Pulse Ox
36.7 C 112 19 136/88 88
03/19/25 03:46 03/19/25 07:00 03/19/25 07:00 03/19/25 07:00 03/19/25 07:00
I&O
03/18/25 03/19/25 03/20/25
06:59 06:59 06:59
Intake Total 3334.3 / 3334.3
Output Total 400 / 400
Balance 2934.3 / 2934.3
Review of Systems
-
Unable to obtain full review of systems at this time due to: Dementia
Physical Exam
-
General: Well Developed, No Apparent Distress, Comfortable, Appears Chronically Ill and Cachectic
HEENT: Normocephalic, Atraumatic and Moist Mucous Membranes
Respiratory: Clear to Auscultation and Non Labored Respirations; Negative Accessory Resp Muscle Use
Cardiac: Regular Rhythm and S1/S2; Negative Murmur, Rub or Gallop
GI: Soft, Nontender, Nondistended and Normal Bowel Sounds
Musculoskeletal: No Clubbing, No Cyanosis and No Edema
Skin: Warm and Dry; Negative Rash
Neuro: Awake and Alert; Negative Oriented
Psych: Calm and Apparent Dementia
Data Reviewed
-
CT Scan: Report Reviewed by me
Labs: Labs Reviewed by me and Discussed with Nurse
--- NOTE | 2025-03-19 08:05 | PTCARENOTE ---
Received pt laying in bed. She is easily awakens to verbal and tactile stimuli. Left FA with Protonix @ 8mg/hr. Weak pedal pulses. Trace anasarca. She is very pale & c/o being cold. Warm blankets provided. Right femoral site with bandage CDI.
Surrounding skin with small area of mild ecchymosis. She is able to follow simple commands. She was informed of the plan of care regarding monitoring her H/H & providing supportive care. She verbalized her understanding. She is asking for water
constantly. Mouth care performed and lip care performed. SBD to sacrum intact. Safe environment maintained.
[2025-03-19] MEDS: KEPPRA 1000 MG IV (08:47)
[2025-03-19] MEDS: AQUAMEPHYTON 51 MG IV (09:10)
--- NOTE | 2025-03-19 09:22 | PTCARENOTE ---
S/P melena stool approximately 100ml's. She denied and cramping. Suddenly she became nauseated, diaphoretic, tachycardic 140's and t[address]ic[address] Dr. Lee notified along with Dr. Johnson. 12nn H/H & T& crossmatch obtained as ordered. SBP 129 at that
time. Pt and neice are awrae of the plab of care to provide supportive care if HGB dangerously low with blood products. Safe environment maintained.
--- NOTE | 2025-03-19 09:25 | W.PN.GI.CBS2 ---
Addendum entered and electronically signed by Nura Johnson MD 03/21/25 13:22:
clarify - billing
duodenal ulcers - acute
Original Note:
Today's Communication / Plan
-
monitor H/H
NPO
continue PPI drip
Assessment / Plan
-
74-year-old female with past medical history of ischemic stroke/lacunar infarcts, subdural hematoma (December 2024) dementia, seizure disorder, CKD stage III, hypertension, hyperlipidemia, osteoporosis, anxiety/depression, colon polyps who is currently
in a halfway recently discharged on 02/27/2025 after acute encephalopathy with status epilepticus. Discussed with patient's sister. She states that while at [place] point she has been having vomiting. Also has been having melena as she noted
her sister has had black stool on her underwear. The patient's sister thought that this may have been associated with something they were giving her while in the halfway. She was sent to the emergency room. We are asked to evaluate for acute
GI bleed. Patient with a he presented hemoglobin of 6.5 , down from 12.1 on 02/26/2025. She was transfused 2 units of packed red blood cells with hemoglobin going up to 9.0.vital signs stable although she is still passing melena from below with
some maroon tinge to it. Has epigastric tenderness on palpation. Patient is nonverbal. On Plavix 75 mg daily for history of CVA. On pantoprazole 40 mg daily. Discussed with patient's sister who is her power of patent prosecution attorney. Gives permission for
diagnostic EGD. Patient is going down for CTA of abdomen and pelvis as she was having vomiting prior to admission.
Impression:
Melena / Acute UGI bleed - CTA 03/16 negative for active bleeding. s/p EGD 03/16 -multiple cratered nonbleeding duodenal ulcers with no stigmata.
Hx CVA on Plavix
dementia
History of seizure disorder
CKD stage III
03/19 - started having significant active bleeding with hypotension/ tachycardia . Stat CTA - active bleeding in duodenal bulb s/p IR arteriogram - no active bleeding . elective embolization of GDA
Plan:
- NPO
- continue protonix drip
- Continue to monitor H&H
- Plavix on hold
- GOC discussion as per medical team.Patient's family is interested. patient is DNR
Total Time Spent with Patient (in minutes): 35
Subjective
Subjective
Date of Service: March 19, 2025
last night severe active bleeding with hypotension/ tachycardia s/p IR embolization
Objective
Data Reviewed
Laboratory Data:
Laboratory Results
PT Cancelled 03/19/25 06:00
INR Cancelled 03/19/25 06:00
APTT Cancelled 03/19/25 06:00
Phosphorus Cancelled 03/19/25 06:00
Magnesium 3.4 mg/dl (1.6-2.3) H 03/19/25 06:42
Total Bilirubin 0.3 mg/dl (0.2-1.3) 03/15/25 22:32
AST 12 U/L (14-36) L 03/15/25 22:32
ALT < 10 U/L (0-35) 03/15/25 22:32
Alkaline Phosphatase 45 U/L (38-126) 03/15/25 22:32
Lipase 266 U/L (23-300) 03/15/25 22:32
Vital Signs and I&O:
Vital Signs
Temp Pulse Resp BP Pulse Ox
97.8 F 128 26 97/78 90
03/19/25 09:20 03/19/25 09:00 03/19/25 09:00 03/19/25 09:00 03/19/25 09:00
I&O
03/18/25 03/19/25 03/20/25
06:59 06:59 06:59
Intake Total 3334.3 / 3494.3 530 / 530
Output Total 400 / 400
Balance 2934.3 / 3094.3 530 / 530
Physical Exam
Physical Exam
GI: Soft, Non Distended and Non Tender
--- NOTE | 2025-03-19 10:03 | CM ---
chart reviewed
IR procedure
referrals in [facility] for SNF
PLAN: SNF, pending bed availability when medically stable
[2025-03-19] MEDS: LEVOPHED 250 IV (10:05)
[2025-03-19 10:07] LABS: Hematocrit 23.3 % (37.0-47.0); Hemoglobin 8.0 g/dL (12.0-16.0)
[2025-03-19 10:42] LABS: Venous Blood Gas B.E. -7.3 mmol/L (-4 to +4); Venous Blood Gas O2 Sat % 99.5 %
--- NOTE | 2025-03-19 10:44 | PTCARENOTE ---
Approximately around 0938 she was bradycardic 54, agonal, pale, diaphoretic, unresponsive with deep sternal rub, and loud verbal stimuli, oxygen titrated up to 6 liters nasal cannula. She was incontinent for a large amount of clear yellow urine. No
BM. Dr. Lee notified and ordered 2 units PRBC and other labs.
--- NOTE | 2025-03-19 11:25 | PTCARENOTE ---
Goals of care discussion with diamond Cooper's sister & her niece by Dr. Johnson & his DIEING OUT MACHINE OPERATOR & Dr. Lee. We will medically manage for now, transfuse with PRBC's, FFP & platelets. Norepi for MAP>65mmHg.
[2025-03-19 11:28] LABS: Blood Urea Nitrogen 28 mg/dl (7-17); Calcium 7.7 mg/dl (8.4-10.2); Carbon Dioxide 20 mmol/L (22-30); Chloride 116 mmol/L (98-107); Estimated Creatinine Clearance 30 ml/min; Glucose 157 mg/dl (70-99); Magnesium 2.8 mg/dl (1.6-2.3); Potassium 3.9 mmol/L (3.5-5.1); Sodium 140 mmol/L (135-145); eGFR 43.42
--- NOTE | 2025-03-19 11:33 | W.PN.UPDATE ---
Update Note
Progress Note Update
#. Shock, suspect hemorrhagic due to recurrent GI bleed
Met with patient's family at bedside along with gastroenterology team. We discussed the various treatment options including endoscopy which very likely will require intubation and mechanical ventilation. Patient currently in shock receiving
Levophed infusion with marginal hemodynamics. We discussed the risk of cardiovascular collapse around induction for intubation. We also discussed the option of ongoing medical management including blood transfusions, pressors, blood products
including fresh frozen plasma and platelets as needed and serial monitoring of blood level. After discussing various option, patient's family has opted not to proceed with intubation or invasive procedures including central line or EGD. Continue
medical management for now. If patient continues to deteriorate family will meet with family again to consider more comfort focused approach.
CODE STATUS will continue to be DNR/DNI.
--- NOTE | 2025-03-19 14:12 | W.PN.UPDATE ---
Update Note
Progress Note Update
Had a long discussion with patient's niece/sister/cemetery counselor at bedside. Discussed in detail about benefits and risk involved with repeat EGD. Patient will be at high risk considering her medical comorbidities and her current status. Patient is
DNR/DNI. Patient's family would like to hold off on repeat EGD at this point. They prefer conservative medical management. Continue to monitor H&H and transfuse as needed. Prognosis guarded
--- NOTE | 2025-03-19 16:40 | PTCARENOTE ---
Pt repositioned. She is repeating 'Hurts, hurts, hurts'. When bladder scanned for 157ml's I asked her if it hurt where I had the ultrasound probe and she said yes. Abdomen is firm and round. Norepinephrine @ 4mcg/min, Protonix @ 10mh/hr.
--- NOTE | 2025-03-19 17:23 | PTCARENOTE ---
Large melena stool mixed with BRB & multiple small clots. Estimated 250ml's+. CHG bath provided. Pt still with C/O abdominal pain and verbalizing 'exhausted'.
[2025-03-19] MEDS: DILAUDID 0.5 MG IV ×2 (17:26→18:39)
[2025-03-19 17:27] LABS: Blood Urea Nitrogen 35 mg/dl (7-17); Calcium 7.5 mg/dl (8.4-10.2); Carbon Dioxide 21 mmol/L (22-30); Chloride 114 mmol/L (98-107); Estimated Creatinine Clearance 28 ml/min; Glucose 166 mg/dl (70-99); Potassium 4.3 mmol/L (3.5-5.1); Sodium 140 mmol/L (135-145); eGFR 39.73
[2025-03-19 17:29] LABS: Hematocrit 16.2 % (37.0-47.0); Hemoglobin 5.7 g/dL (12.0-16.0)
--- NOTE | 2025-03-19 17:29 | PTCARENOTE ---
Dr Lee & Dr. Johnson notified of recent H/H of 5.7. This is reflective of the 2 units PRBC's, 2units FFP & Platelets today. Her daughter and 2 granddaughters are at the bedside and informed of her recent HGB and that the physicians were notified.
I took this time to recap her day and informed them that she is still bleeding given her HGB is 5.7, she is not comfortable given her moaning constantly and requiring analgesia for her abdominal pain, and she is back on Norepinephrine. Overall she
is requiring more support and is not any better than when we started this morning. They requested to speak with Dr. Lee, he is aware.
--- NOTE | 2025-03-19 18:10 | W.PN.UPDATE ---
Update Note
Progress Note Update
Patient had large-volume melanotic stool in the afternoon. After getting 2 units packed RBCs this morning along with 2 units of FFP's and platelets, hemoglobin of 5.7 from 8 this morning consistent with significant active GI bleed. Continues to be
on pressors worsening hypotension, blood pressure down to 58 MAP now. Patient appears pale and cold.
I met with patient's family at bedside went over patient's current critical status. Family has opted to proceed with comfort focused care at this point and not pursue additional resuscitation, which seems appropriate at this time.
Comfort care order set placed, will use Dilaudid as needed for pain or air hunger.
Additional 45 minutes of critical care time spent.
--- NOTE | 2025-03-19 18:35 | PTCARENOTE ---
Transitioned pt to comfort care. Protonix & Norepinephrine drips were dc'd. Oxygen was also removed at this time. The family was provided supportive care. Blood bank notified that she will not be needing any of the blood products ordered recently
due to transitioning of care.
--- NOTE | 2025-03-19 20:00 | PTCARENOTE ---
Addendum entered by Mandy Han RN 03/19/25 20:44:
pt on comfort measures- family aware to call if pt appears uncomf
Original Note:
Rec'd pt unresponsive, cpot 0, appears comf, no moaning, family at bedside, chaplan here to speak & comfort family, lungs decr, inc amt melena, janes care given
[2025-03-19] MEDS: KEPPRA IV (20:35)
--- NOTE | 2025-03-19 23:00 | PTCARENOTE ---
inc lg amt liquid burgundy stool, recta trmpet to str drainage bag inserted; CHG bath done, linens changed
--- NOTE | 2025-03-20 00:24 | PTCARENOTE ---
pt appears comf
[2025-03-20 00:50] VITALS: BP 57/31
[2025-03-20 02:50] VITALS: BP 59/31
[2025-03-20 07:55] VITALS: BP 81/42
[2025-03-20 08:00] VITALS: BP 81/43
--- NOTE | 2025-03-20 08:41 | PTOTSP ---
CHART REVIEWED AND SPOKE WITH RN. PATIENT NOW ON COMFORT MEASURES THEREFORE THERAPY WILL SIGN OFF AT THIS TIME. WILL DISCHARGE FROM P.T. SERVICES.
[2025-03-20] MEDS: KEPPRA 1000 MG IV (08:50)
--- NOTE | 2025-03-20 09:00 | PTCARENOTE ---
pt unresponsive , on comfort measures , no signs of pain or distress , pt sister at bedside
--- NOTE | 2025-03-20 09:20 | W.PN.HOSP.TC ---
Today's Communication/Plan
-
see A/P
Assessment / Plan
Assessment / Plan
# Acute blood loss anemia/ symptomatic anemia
# Upper GI bleed
# Hemorrhagic shock with PUBLIC HEALTH TECHNOLOGIST event 03/19, due to upper GIB
GIB exacerbated by Plavix
s/p endoscopy 03/16, noted many non-bleeding duodenal ulcers
s/p total 10 units [address] transfusion
CT angio noted Contrast extravasation within the first portion of the duodenum, consistent with active gastrointestinal hemorrhage.
per IR, no active bleed identified at celiac, common hepatic, and GDA angiography. Empiric coil embolization of the GDA was performed.
s/p levophed
severe clinical deconditioning, GOC discussed and family opted for transition to comfort measures
Cont comfort meds
# Epilepsy
# Recent hospitalization for status epilepticus
Cont comfort meds
# CKD stage IIIb
# Presumed vascular dementia
# H/O ischemic and hemorrhagic CVA
DVT prophylaxis: no need
CODE STATUS: DNR
d/w sister and niece at bedside, provided emotional support
Anticipated Discharge: Within 24 hours
Subjective/Interval History
-
Date of Service: March 20, 2025
Objective Data
-
Vital Signs:
Vital Signs
Temp Pulse Resp BP Pulse Ox
36.4 C 95 20 59/31 82
03/20/25 08:15 03/20/25 06:00 03/20/25 06:00 03/20/25 02:50 03/19/25 18:30
I&O
03/19/25 03/20/25 03/21/25
06:59 06:59 06:59
Intake Total 3334.3 / 3494.3 2058.3 / 2058.3
Output Total 400 / 400 200 / 200
Balance 2934.3 / 3094.3 185.3 / 1858.3
Review of Systems
-
Unable to obtain full review of systems at this time due to: Acuity
Physical Exam
-
General: Well Developed, No Apparent Distress, Comfortable, Appears Chronically Ill and Cachectic
HEENT: Normocephalic, Atraumatic and Moist Mucous Membranes
Respiratory: Non Labored Respirations; Negative Accessory Resp Muscle Use
Cardiac: Rub
Neuro: Negative Awake
Psych: Calm
--- NOTE | 2025-03-20 09:48 | CM ---
Patient seen at bedside with sister & niece
patient on comfort measures
CM offered emotional support to family
PLAN: Comfort measures
[2025-03-20 12:08] VITALS: BP 75/45
[2025-03-20 13:53] VITALS: BP 76/46
[2025-03-20] MEDS: DILAUDID 0.5 MG IV (13:59)
--- NOTE | 2025-03-20 14:54 | PTCARENOTE ---
pt given IV Dilaudid for increase work of breathing and signs of discomfort , family at bedside , emotional support offered
--- NOTE | 2025-03-20 15:34 | PN.CDI ---
CDI
- -
CDI:
Physician Documentation Request
Admit Date: 03/16/25 01:35
Dear Doctor,
Please review the following and provide your response in the progress notes.
Clinical Indicators:
Pt admitted with ABLA/ Upper GI bleed found on EGD to have non-bleeding duodenal ulcers
GI progress note 03/19,'Melena / Acute UGI bleed - CTA 03/16 negative for active bleeding. s/p EGD 03/16 -multiple cratered nonbleeding duodenal ulcers with no stigmata. ...03/19 - started having significant active bleeding with hypotension/
tachycardia . Stat CTA - active bleeding in duodenal bulb s/p IR arteriogram...'
Clarify which of the following accurately represents the suspected acuity of the ( duodenal ulcers). include:
Acute
Acute on Chronic
Other ( please specify)
Use of terms such as suspected, likely, concern for, or probable (associated with a specific diagnosis that is being evaluated, monitored, or treated as if it exists) are acceptable and can be coded in the inpatient setting, when documented at the
time of discharge.
Thank you,
Lula Rubalcava RN
CDI Specialist
[facility]
Please use your independent medical judgment in providing your response.
--- NOTE | 2025-03-20 15:54 | PTCARENOTE ---
asystolic and apneic at 1541, family bedside, support given. Dr. Vences notified, presently in room to pronounce.
--- NOTE | 2025-03-20 15:59 | W.PN.DEATH ---
Pronouncement of
-
Called to see patient to pronounce.
No spontaneous heart tones or respirations noted.
Patient not responsive to verbal stimuli.
Patient is pronounced .
Time of : 15:41
Date of : 03/20/25
Family Notified: Yes (at bedside )
--- NOTE | 2025-03-20 16:07 | W.DCSUMMARY ---
Discharge Summary
Discharge Data
Date of Admission: 03/16/25
Date of Discharge: 03/20/25
Total time spent discharging patient (in min): 40
-
Pending Results: No
Hospital Course
Principal Diagnosis:
# Acute blood loss anemia/ symptomatic anemia
# Upper GI bleed with duodenal ulcers
# Hemorrhagic shock due to duodenal ulcers
Chronic Diagnoses:�
# Epilepsy
# Recent hospitalization for status epilepticus
# CKD stage IIIb
# Presumed vascular dementia
# H/O ischemic and hemorrhagic CVA
Consultations:�
Fish Cutting Machine Operator
Power Transformer Repairer
Interventional radiologist
Procedures:�
endoscopy 03/16, noted many non-bleeding duodenal ulcers
IR performed empiric coil embolization of the GDA
Clinical course:�
This was a 74-year-old female, with past medical history as stated above, who presented with generalized weakness.
She was noted to have acute blood loss anemia with low hemoglobin at 6.5 on admission.
She received a total of 10 unit PRBC transfusion this admission.
She underwent endoscopy on 03/16 by GI, which noted many nonbleeding duodenal ulcers.
She continued to have profuse GI bleed and went into hemorrhagic shock.
Her CT angio noted contrast extravasation into the first portion of the duodenum, which suggest active GI bleed.
IR was consulted and performed empiric coil embolization of the gastroduodenal artery.
Despite this, her GI bleed did not stop.
Due to her severe clinical deconditioning, goals of care was discussed with her family.
They agreed to transition the patient to comfort measures.
The patient peacefully on 03/20/2025, and the time of was at 3:41 PM. Her family was bedside during pronouncement.
Discharge Plan
-
Patient Disposition:
Discharge Date and Time
Print Language: INDONESIAN
== END 2025-03-20 15:41 | disposition expired | DRG 330 ==
LOC: ICU 01:35
PROVIDERS: Internal Medicine; Internal Medicine Gastroenterology; Nurse Practitioner Family; Radiology Vascular & Interventional Radiology; ADMITTING PHYSICIAN Hospitalist; ATTENDING PHYSICIAN Internal Medicine; CONSULT PHYSICIAN Internal Medicine; EMERGENCY PHYSICIAN Emergency Medicine; FAMILY PHYSICIAN Family Medicine; OTHER PHYSICIAN Nurse Practitioner
PROC: 30233N1 Transfusion of Nonautologous Red Blood Cells into Peripheral Vein, Percutaneous Approach (ICD-10-PCS; 2025-03-16)
PROC: 0DJ08ZZ Inspection of Upper Intestinal Tract, Via Natural or Artificial Opening Endoscopic (ICD-10-PCS; 2025-03-16)
PROC: 0DV Gastrointestinal System, Restriction (ICD-10-PCS; 2025-03-19)
PROC: 30233L1 Transfusion of Nonautologous Fresh Plasma into Peripheral Vein, Percutaneous Approach (ICD-10-PCS; 2025-03-19)
PROC: 30233R1 Transfusion of Nonautologous Platelets into Peripheral Vein, Percutaneous Approach (ICD-10-PCS; 2025-03-19)
DX: K26.0 Acute duodenal ulcer with hemorrhage (principal); D62 Acute posthemorrhagic anemia; F01.53 Vascular dementia, unspecified severity, with mood disturbance; F01.54 Vascular dementia, unspecified severity, with anxiety; D68.9 Coagulation defect, unspecified; D68.32 Hemorrhagic disorder due to extrinsic circulating anticoagulants; K44.9 Diaphragmatic hernia without obstruction or gangrene; I12.9 Hypertensive chronic kidney disease with stage 1 through stage 4 chronic kidney disease, or unspecified chronic kidney disease; N18.32 Chronic kidney disease, stage 3b; G40.901 Epilepsy, unspecified, not intractable, with status epilepticus; Z86.73 Personal history of transient ischemic attack (TIA), and cerebral infarction without residual deficits; G25.0 Essential tremor; M81.0 Age-related osteoporosis without current pathological fracture; F32.A Depression, unspecified; E78.00 Pure hypercholesterolemia, unspecified; K59.00 Constipation, unspecified; Z79.02 Long term (current) use of antithrombotics/antiplatelets; R57.8 Other shock; Z66 Do not resuscitate; I25.10 Atherosclerotic heart disease of native coronary artery without angina pectoris; Z86.0100 Personal history of colon polyps, unspecified; T39.395A Adverse effect of other nonsteroidal anti-inflammatory drugs [NSAID], initial encounter; Z79.899 Other long term (current) drug therapy; Z90.710 Acquired absence of both cervix and uterus
CPT/HCPCS: 71045; 74022; 74174; 80048; 80053; 82040; 82805; 82962; 83605; 83690; 83735; 84100; 85014; 85018; 85025; 85027; 85610; 85730; 86850; 86900; 86901; 86920; 87070; 92610; 93005; 96361; 96365; 96375; 97163; 97167; 99291; P9016; P9059; P9073; Q9967